=== PATIENT | male | born 1965 | race Caucasian/White ===

== ENCOUNTER 2019-04-12 08:57 | Observation (INO) | payer OTHER, SELFPAY ==
[2019-04-12] VITALS (11 sets, daily range): BP systolic 107–130; BP diastolic 50–76; PULSE 40–48; RESP 12–19; TEMP 36.4–36.9; O2SAT 94–98; BMI 39.4
--- NOTE | 2019-04-12 09:12 | DI.RAD.S_ITS ---
PROCEDURE: XR CHEST 1V INDICATIONS: chest pain TECHNIQUE: One view of the chest was acquired. COMPARISON: None. FINDINGS: Surgical changes and devices: None. Lungs and pleura: Lungs are clear. No pleural effusions or pneumothorax. Mediastinum: Mediastinal contours appear normal. Heart size is normal. Bones and chest wall: No suspicious bony lesions. Overlying soft tissues appear unremarkable. IMPRESSION: No acute cardiopulmonary findings. Dictated by: Sabrina Silva M.D. on 04/12/2019 at 9:06 Approved by: Sabrina Silva M.D. on 04/12/2019 at 9:06
[2019-04-12 09:18] LABS: Add Manual Diff / Slide Review NO; Basophils Absolute Auto 100 /uL (0-100); Eosinophils Absolute Auto 100 /uL (0-450); Eosinophils Percent Auto 1.8 % (2-4); Hematocrit 42.1 % (41-53); Hemoglobin 14.4 g/dL (13.5-17.5); Lymphocytes Absolute Auto 2200 /uL (1100-4500); Lymphocytes Percent Auto 28.5 % (25-40); Mean Corpuscular HGB Conc 34.3 % (30-36); Mean Corpuscular Volume 87.6 fL (80-100); Monocytes Absolute Auto 600 /uL (0-900); Monocytes Percent Auto 7.2 % (3-14); Neutrophils Absolute Auto 4800 /uL (1500-7000); Neutrophils Percent Auto 61.5 % (50-75); Platelet Count 256 X10^3/uL (150-400); Red Blood Cell Count 4.81 X10^6/uL (4.5-5.9); Red Cell Distribution Width 13.6 % (11.6-14.8); White Blood Cell Count 7.9 X10^3/uL (4.5-11.0)
[2019-04-12 09:21] LABS: Prothrombin Time 11.1 SECONDS (10.1-12.7)
[2019-04-12 09:23] LABS: PTT Partial Thromboplastin Tim 30 SECONDS (26.4-36.2)
[2019-04-12 09:25] LABS: Alanine Aminotransferase 30 IU/L (21-72); Albumin 4.5 g/dL (3.5-5.0); Albumin Globulin Ratio 1.5 (1.0-2.8); Alkaline Phosphatase 51 U/L (38-126); Aspartate Aminotransferase 24 IU/L (17-59); BUN Creatinine Ratio 21.7 (6-22); Bilirubin Total 0.6 mg/dL (0.2-1.3); Blood Urea Nitrogen 13 mg/dL (9-20); Calcium 9.2 mg/dL (8.4-10.2); Carbon Dioxide 25 mmol/L (22-32); Chloride 104 mmol/L (98-107); Creatine Kinase 56 U/L (55-170); Estimated Glomerular Filt Rate > 60.0 mL/min (>60); Glucose 105 mg/dL (70-100); HEMOLYSIS 20 (0-50); Lipase 53 U/L (23-300); Potassium 4.5 mmol/L (3.4-5.1); Sodium 141 mmol/L (137-145); Total Protein 7.5 g/dL (6.3-8.2)
[2019-04-12 09:37] LABS: Troponin I < 0.012 ng/mL (0.01-0.034)
--- NOTE | 2019-04-12 09:42 | ED.WEAKNESS ---
HPI - Weakness General Chief complaint: Weakness Stated complaint: Low heart beat Time Seen by Provider: 04/12/19 08:59 Source: patient and family Mode of arrival: ambulatory Limitations: no limitations History of Present Illness HPI Narrative: Patient comes to the emergency department complaining of episodes of generalized weakness and lightheadedness, with low heartbeat over the past year to. Patient states that he also has a history of left-sided chest pain that radiates to his arm and shoulder for about the same period, but unrelated to these episodes. Patient states he has recently moved here from [facility], and while living there, was fully worked up for all of the above, including seeing a nut culler at [facility]. Patient states that he has had constant, but fluctuating tinnitus for the last couple of years, and is on propranolol for this. He has been on the propranolol for about 1 year, and has had no recent dose changes. Patient states that this morning, he and his got up and went down to the water and had a relaxing morning. On their way back, patient began to feel lightheaded, and when they checked his heart rate, they found to be 40-41. Patient states the last time he took his propranolol was this morning. He he patient and his state that the patient's blood pressure was ?low? but clarifies that he had a systolic of 107, then 113. The patient is on losartan for his blood pressure, and has not had any recent dose changes. Patient denies any chest pain that occurred with this episode. No shortness of breath. No nausea. He has not been ill with anything. Patient does admit that he does not drink much water. He gets about 3:00 a.m. every morning to go to work, so he goes to bed about 6:00 p.m.. Patient states he falls asleep right away, but never feels rested in the morning. He is not known to have sleep apnea. Patient has never been diagnosed with any cardiac issues. He is not a diabetic. He denies any new medications of any sort. He states he drinks 2 cups of coffee every day, and drinks occasional alcohol. No other complaints at this time. Patient states he feels little better lying in the bed. Related Data Home Medications Medication Instructions Recorded Confirmed losartan 50 mg PO DAILY 04/12/19 04/12/19 propranolol 80 mg PO BID 04/12/19 04/12/19 sertraline 100 mg PO DAILY 04/12/19 04/12/19 Allergies Allergy/AdvReac Type Severity Reaction Status Date / Time No Known Drug Allergies Allergy Verified 04/12/19 09:05 Review of Systems Constitutional Denies chills, Denies fever(s), Denies lethargy and Reports weakness Eyes Denies change in vision, Denies eye discharge, Denies irritation and Denies loss of vision ENT Ears, Nose, Mouth, and Throat: Denies change in voice, Denies neck pain and Denies sore throat Cardiovascular Reports chest pain (Chronic), Denies irregular heart rhythm, Reports lightheadedness, Denies palpitations, Denies dyspnea, Denies dyspnea on exertion, Denies orthopnea and Reports slow heart rate Respiratory Denies cough, Denies dyspnea, Denies dyspnea on exertion and Denies wheezing Gastrointestinal Gastrointestinal: Denies abdominal pain, Denies change in bowel habits, Denies diarrhea, Denies nausea and Denies vomiting Genitourinary Denies hematuria, Denies flank pain, Denies urinary incontinence and Denies urinary urgency Musculoskeletal Denies neck pain Integumentary/Breasts Denies pruritus, Denies erythema, Denies rash and Denies wounds Neurologic Denies confusion, Denies loss of vision and Reports weakness Psychiatric Denies anxiety, Denies confusion, Denies depression, Denies homicidal ideation and Denies suicidal ideation Endocrine Denies palpitations Hematologic/Lymphatic Denies easy bruising Allergic/Immunologic Denies wheezing [facility] Medical History Tinnitus (Acute) HTN (hypertension) (Acute) Surgical History No pertinent past surgical history (Acute) Social History Smoking Status: Never smoker Social History Smoking Status: Never smoker Exam Initial Vital Signs Initial Vital Signs: Vital Signs Temperature 97.6 F 04/12/19 09:00 Pulse Rate 43 L 04/12/19 09:00 Respiratory Rate 19 04/12/19 09:00 Blood Pressure 130/66 04/12/19 09:00 Pulse Oximetry 98 04/12/19 09:00 Const General: cooperative and well developed Nutritional Appearance: well nourished Orientation: alert, awake, oriented x3 and not confused [facility] Head: normocephalic and atraumatic Ears: external ears normal Nose: external nose normal and No nasal discharge Face and sinus: face symmetric and No dry mucous membranes Mouth: oral mucosae normal and moist mucous membranes Teeth and gingiva: dentition normal Eyes General: appearance normal, both eyes and all related structures Eyelids: eyelids normal Conjunctivae: conjunctivae normal Sclera: sclerae normal Pupils: PERRL EOM: EOM intact bilaterally Neck Neck: normal visual inspection, trachea midline, No lymphadenopathy, No midline deformity and No JVD Lymphatic: No lymphedema Chest Chest: normal inspection of the chest Resp Effort & Inspection: normal respiratory effort, able to speak in complete sentences, no respiratory distress and no use of accessory muscles Auscultation: clear to auscultation bilaterally, no rales, no rhonchi and no wheezes Cardio Rate: regular rate Rhythm: regular rhythm Heart Sounds: no click, no gallops, no murmurs and no rubs Pulses: normal peripheral pulses GI Inspection: non-distended Palpation: soft, no hepatosplenomegaly, No guarding, No pulsatile mass and No tender Auscultation: normal bowel sounds Back/Spine/Pelvis Back: No CVA tenderness Cervical Spine: cervical ROM normal and No pain with cervical ROM Thoracic/Lumbar Spine: thoracic and lumbar spine normal to inspection Skin General: no rashes or lesions noted, No jaundice and No petechiae Neuro General: alert, oriented x3, gait normal and no focal motor deficits Speech: speech normal Extrem General: full ROM, no clubbing, cyanosis or edema, no pedal edema and no calf tenderness Psych Appearance: well kempt Mental Status: mental status grossly normal Attitude: cooperative Thought Content: normal and suicidality Judgment: judgment good Course Course Narrative: Patient was given IV fluids and worked up with EKG, labs, and chest x-ray. His heart rate was in the mid to upper 40s on the monitor initially, but then began to drop down into the upper 30s, as low as 37. The patient's workup was unremarkable. I discussed the case with Dr. Hurd, who was on-call for Cardiology, and he felt the patient should be admitted to the hospital for observation, with instructions to hold the propanolol, which Dr. Hurd felt was most likely the reason for the patient's recurrent bradycardic episodes. I had reviewed the records from [facility], and found the patient had had a CTA of the coronary arteries, showing no stenosis in any of the arteries, and I did discuss this with Dr. Hurd, as well. He stated that he did not feel that the patient needed to have a stress test, in light of this recent study. I spoke with Dr. May, who is the hospitalist on-call, regarding the situation, and she agreed to admit the patient to her service for observation. Orders Ordered: ED Orders 04/12/19 09:08 Complete Blood Count AUTO DIFF Stat Comprehensive Metabolic Panel Stat Lipase Stat Partial Thromboplastin Time Stat Prothrombin Time INR Stat Troponin & CK Cardiac Panel Stat 04/12/19 09:12 XR chest 1V Stat 04/12/19 12:10 Troponin & CK Cardiac Panel Stat Discontinued Medications Atropine Sulfate (Atropine) 0.5 mg IV NOW ONE Stop: 04/12/19 09:43 Last Admin: 04/12/19 09:55 Dose: 0.5 mg Sodium Chloride (Normal Saline 0.9%) 1,000 mls @ 1,000 mls/hr IV BOLUS ONE Stop: 04/12/19 10:41 Last Infusion: 04/12/19 11:05 Dose: 0 mls/hr Admin: 04/12/19 09:55 Dose: 1,000 mls/hr Vital Signs - 8 hr 04/12/19 09:00 04/12/19 10:02 04/12/19 11:00 Temperature 97.6 F Pulse Rate 43 L 46 L 41 L Respiratory Rate 19 19 16 Blood Pressure 130/66 Blood Pressure [Left Arm] 115/58 L 107/50 L Pulse Oximetry 98 96 96 04/12/19 12:30 04/12/19 13:00 04/12/19 13:31 Temperature Pulse Rate 41 L 40 L 44 L Respiratory Rate 17 17 18 Blood Pressure Blood Pressure [Left Arm] 109/53 L 113/60 113/60 Pulse Oximetry 97 95 97 MDM - Weakness Medical Records Attestation: I reviewed the patient's medical records. Lab Data Attestation: I reviewed the patient's lab results. Result diagrams: 04/12/19 09:08 04/12/19 09:08 Lab Results 04/12/19 04/12/19 04/12/19 Range/Units 09:08 09:08 09:08 WBC 7.9 (4.5-11.0) X10^3/uL RBC 4.81 (4.5-5.9) X10^6/uL Hgb 14.4 (13.5-17.5) g/dL Hct 42.1 (41-53) % MCV 87.6 (80-100) fL MCH 30.0 (26-34) PG MCHC 34.3 (30-36) % RDW 13.6 (11.6-14.8) % Plt Count 256 (150-400) X10^3/uL Neut % (Auto) 61.5 (50-75) % Lymph % (Auto) 28.5 (25-40) % [place] % (Auto) 7.2 (3-14) % Eos % (Auto) 1.8 L (2-4) % Baso % (Auto) 1.0 (0-2) % Neut # (Auto) 4800 (7708-2733) /uL Lymph # (Auto) 2200 (4829-1047) /uL [place] # (Auto) 600 (0-900) /uL Eos # (Auto) 100 (0-450) /uL Baso # (Auto) 100 (0-100) /uL PT 11.1 (10.1-12.7) SECONDS INR 1.0 (0.9-1.3) APTT 30 (26.4-36.2) SECONDS Sodium 141 (137-145) mmol/L Potassium 4.5 (3.4-5.1) mmol/L Chloride 104 (98-107) mmol/L Carbon Dioxide 25 (22-32) mmol/L BUN 13 (9-20) mg/dL Creatinine 0.60 L (0.66-1.25) mg/dL Estimated GFR > 60.0 (>60) mL/min BUN/Creatinine Ratio 21.7 (6-22) Glucose 105 H (70-100) mg/dL Calcium 9.2 (8.4-10.2) mg/dL Total Bilirubin 0.6 (0.2-1.3) mg/dL AST 24 (17-59) IU/L ALT 30 (21-72) IU/L Alkaline Phosphatase 51 (38-126) U/L Total Creatine Kinase 56 (55-170) U/L CK-MB (CK-2) TNP CK-MB (CK-2) Rel Index TNP Troponin I < 0.012 (0.01-0.034) ng/mL Total Protein 7.5 (6.3-8.2) g/dL Albumin 4.5 (3.5-5.0) g/dL Globulin 3.0 (1.7-4.1) g/dL Albumin/Globulin Ratio 1.5 (1.0-2.8) Lipase 53 (23-300) U/L 04/12/19 Range/Units 12:10 WBC (4.5-11.0) X10^3/uL RBC (4.5-5.9) X10^6/uL Hgb (13.5-17.5) g/dL Hct (41-53) % MCV (80-100) fL MCH (26-34) PG MCHC (30-36) % RDW (11.6-14.8) % Plt Count (150-400) X10^3/uL Neut % (Auto) (50-75) % Lymph % (Auto) (25-40) % Chilton % (Auto) (3-14) % Eos % (Auto) (2-4) % Baso % (Auto) (0-2) % Neut # (Auto) (3946-5843) /uL Lymph # (Auto) (1913-6883) /uL Chilton # (Auto) (0-900) /uL Eos # (Auto) (0-450) /uL Baso # (Auto) (0-100) /uL PT (10.1-12.7) SECONDS INR (0.9-1.3) APTT (26.4-36.2) SECONDS Sodium (137-145) mmol/L Potassium (3.4-5.1) mmol/L Chloride (98-107) mmol/L Carbon Dioxide (22-32) mmol/L BUN (9-20) mg/dL Creatinine (0.66-1.25) mg/dL Estimated GFR (>60) mL/min BUN/Creatinine Ratio (6-22) Glucose (70-100) mg/dL Calcium (8.4-10.2) mg/dL Total Bilirubin (0.2-1.3) mg/dL AST (17-59) IU/L ALT (21-72) IU/L Alkaline Phosphatase (38-126) U/L Total Creatine Kinase 48 L (55-170) U/L CK-MB (CK-2) TNP CK-MB (CK-2) Rel Index TNP Troponin I < 0.012 (0.01-0.034) ng/mL Total Protein (6.3-8.2) g/dL Albumin (3.5-5.0) g/dL Globulin (1.7-4.1) g/dL Albumin/Globulin Ratio (1.0-2.8) Lipase (23-300) U/L Imaging Data Chest x-ray: Attestation: I personally reviewed and interpreted this imaging study as follows: My impression: Negative Radiologist's impression: PROCEDURE: XR CHEST 1V INDICATIONS: chest pain TECHNIQUE: One view of the chest was acquired. COMPARISON: None. FINDINGS: Surgical changes and devices: None. Lungs and pleura: Lungs are clear. No pleural effusions or pneumothorax. Mediastinum: Mediastinal contours appear normal. Heart size is normal. Bones and chest wall: No suspicious bony lesions. Overlying soft tissues appear unremarkable. IMPRESSION: No acute cardiopulmonary findings. Dictated by: Sabrina Silva M.D. on 04/12/2019 at 9:06 Approved by: Sabrina Silva M.D. on 04/12/2019 at 9:06 ECG Data Attestation: I personally reviewed and interpreted this ECG as follows: (See below) Interpretation: Twelve lead EKG performed April 04, 2019 at 9:01 a.m., follows: Regular ventricular rhythm with a rate of 42 beats per minute NC interval was 151 millisecond QRS duration 97 millisecond QTC interval [address] T wave changes No ectopy Interpretation: Sinus bradycardia; no signs of acute ischemia; borderline EKG as interpreted by ED MD. Discharge Plan Departure Patient Disposition: Admitted as Observation Clinical Impression: Symptomatic sinus bradycardia Discharge Date/Time: 04/12/19 13:45 Interventions: ED Discharge Assessment Last Done: 04/12/19 13:45 Admit Date/Time: 04/12/19 12:37 Admit Provider: Monie May
--- NOTE | 2019-04-12 09:50 | ED_ITS ---
HPI - Weakness General Chief complaint: Weakness Stated complaint: Low heart beat Time Seen by Provider: 04/12/19 08:59 Source: patient and family Mode of arrival: ambulatory Limitations: no limitations History of Present Illness HPI Narrative: Patient comes to the emergency department complaining of episodes of generalized weakness and lightheadedness, with low heartbeat over the past year to. Patient states that he also has a history of left-sided chest pain that radiates to his arm and shoulder for about the same period, but unrelated to these episodes. Patient states he has recently moved here from [facility], and while living there, was fully worked up for all of the above, including seeing a color print inspector at [facility]. Patient states that he has had constant, but fluctuating tinnitus for the last couple of years, and is on propranolol for this. He has been on the propranolol for about 1 year, and has had no recent dose changes. Patient states that this morning, he and his got up and went down to the water and had a relaxing morning. On their way back, patient began to feel lightheaded, and when they checked his heart rate, they found to be 40-41. Patient states the last time he took his propranolol was this morning. He he patient and his state that the patient's blood pressure was ?low? but clarifies that he had a systolic of 107, then 113. The patient is on losartan for his blood pressure, and has not had any recent dose changes. Patient denies any chest pain that occurred with this episode. No shortness of breath. No nausea. He has not been ill with anything. Patient does admit that he does not drink much water. He gets about 3:00 a.m. every morning to go to work, so he goes to bed about 6:00 p.m.. Patient states he falls asleep right away, but never feels rested in the morning. He is not known to have sleep apnea. Patient has never been diagnosed with any cardiac issues. He is not a diabetic. He denies any new medications of any sort. He states he drinks 2 cups of coffee every day, and drinks occasional alcohol. No other complaints at this time. Patient states he feels little better lying in the bed. Related Data Home Medications Medication Instructions Recorded Confirmed losartan 50 mg PO DAILY 04/12/19 04/12/19 propranolol 80 mg PO BID 04/12/19 04/12/19 sertraline 100 mg PO DAILY 04/12/19 04/12/19 Allergies Allergy/AdvReac Type Severity Reaction Status Date / Time No Known Drug Allergies Allergy Verified 04/12/19 09:05 Review of Systems Constitutional Denies chills, Denies fever(s), Denies lethargy and Reports weakness Eyes Denies change in vision, Denies eye discharge, Denies irritation and Denies loss of vision ENT Ears, Nose, Mouth, and Throat: Denies change in voice, Denies neck pain and Denies sore throat Cardiovascular Reports chest pain (Chronic), Denies irregular heart rhythm, Reports lightheadedness, Denies palpitations, Denies dyspnea, Denies dyspnea on exertion, Denies orthopnea and Reports slow heart rate Respiratory Denies cough, Denies dyspnea, Denies dyspnea on exertion and Denies wheezing Gastrointestinal Gastrointestinal: Denies abdominal pain, Denies change in bowel habits, Denies diarrhea, Denies nausea and Denies vomiting Genitourinary Denies hematuria, Denies flank pain, Denies urinary incontinence and Denies urinary urgency Musculoskeletal Denies neck pain Integumentary/Breasts Denies pruritus, Denies erythema, Denies rash and Denies wounds Neurologic Denies confusion, Denies loss of vision and Reports weakness Psychiatric Denies anxiety, Denies confusion, Denies depression, Denies homicidal ideation and Denies suicidal ideation Endocrine Denies palpitations Hematologic/Lymphatic Denies easy bruising Allergic/Immunologic Denies wheezing [facility] Medical History Tinnitus (Acute) HTN (hypertension) (Acute) Surgical History No pertinent past surgical history (Acute) Social History Smoking Status: Never smoker Social History Smoking Status: Never smoker Exam Initial Vital Signs Initial Vital Signs: Vital Signs Temperature 97.6 F 04/12/19 09:00 Pulse Rate 43 L 04/12/19 09:00 Respiratory Rate 19 04/12/19 09:00 Blood Pressure 130/66 04/12/19 09:00 Pulse Oximetry 98 04/12/19 09:00 Const General: cooperative and well developed Nutritional Appearance: well nourished Orientation: alert, awake, oriented x3 and not confused [facility] Head: normocephalic and atraumatic Ears: external ears normal Nose: external nose normal and No nasal discharge Face and sinus: face symmetric and No dry mucous membranes Mouth: oral mucosae normal and moist mucous membranes Teeth and gingiva: dentition normal Eyes General: appearance normal, both eyes and all related structures Eyelids: eyelids normal Conjunctivae: conjunctivae normal Sclera: sclerae normal Pupils: PERRL EOM: EOM intact bilaterally Neck Neck: normal visual inspection, trachea midline, No lymphadenopathy, No midline deformity and No JVD Lymphatic: No lymphedema Chest Chest: normal inspection of the chest Resp Effort & Inspection: normal respiratory effort, able to speak in complete sentences, no respiratory distress and no use of accessory muscles Auscultation: clear to auscultation bilaterally, no rales, no rhonchi and no wheezes Cardio Rate: regular rate Rhythm: regular rhythm Heart Sounds: no click, no gallops, no murmurs and no rubs Pulses: normal peripheral pulses GI Inspection: non-distended Palpation: soft, no hepatosplenomegaly, No guarding, No pulsatile mass and No tender Auscultation: normal bowel sounds Back/Spine/Pelvis Back: No CVA tenderness Cervical Spine: cervical ROM normal and No pain with cervical ROM Thoracic/Lumbar Spine: thoracic and lumbar spine normal to inspection Skin General: no rashes or lesions noted, No jaundice and No petechiae Neuro General: alert, oriented x3, gait normal and no focal motor deficits Speech: speech normal Extrem General: full ROM, no clubbing, cyanosis or edema, no pedal edema and no calf tenderness Psych Appearance: well kempt Mental Status: mental status grossly normal Attitude: cooperative Thought Content: normal and suicidality Judgment: judgment good Course Course Narrative: Patient was given IV fluids and worked up with EKG, labs, and chest x-ray. His heart rate was in the mid to upper 40s on the monitor initially, but then began to drop down into the upper 30s, as low as 37. The patient's workup was unremarkable. I discussed the case with Dr. Hurd, who was on-call for Cardiology, and he felt the patient should be admitted to the hospital for observation, with instructions to hold the propanolol, which Dr. Hurd felt was most likely the reason for the patient's recurrent bradycardic episodes. I had reviewed the records from [facility], and found the patient had had a CTA of the coronary arteries, showing no stenosis in any of the arteries, and I did discuss this with Dr. Hurd, as well. He stated that he did not feel that the patient needed to have a stress test, in light of this recent study. I spoke with Dr. May, who is the hospitalist on-call, regarding the situation, and she agreed to admit the patient to her service for observation. Orders Ordered: ED Orders 04/12/19 09:08 Complete Blood Count AUTO DIFF Stat Comprehensive Metabolic Panel Stat Lipase Stat Partial Thromboplastin Time Stat Prothrombin Time INR Stat Troponin & CK Cardiac Panel Stat 04/12/19 09:12 XR chest 1V Stat 04/12/19 12:10 Troponin & CK Cardiac Panel Stat Discontinued Medications Atropine Sulfate (Atropine) 0.5 mg IV NOW ONE Stop: 04/12/19 09:43 Last Admin: 04/12/19 09:55 Dose: 0.5 mg Sodium Chloride (Normal Saline 0.9%) 1,000 mls @ 1,000 mls/hr IV BOLUS ONE Stop: 04/12/19 10:41 Last Infusion: 04/12/19 11:05 Dose: 0 mls/hr Admin: 04/12/19 09:55 Dose: 1,000 mls/hr Vital Signs - 8 hr 04/12/19 09:00 04/12/19 10:02 04/12/19 11:00 Temperature 97.6 F Pulse Rate 43 L 46 L 41 L Respiratory Rate 19 19 16 Blood Pressure 130/66 Blood Pressure [Left Arm] 115/58 L 107/50 L Pulse Oximetry 98 96 96 04/12/19 12:30 04/12/19 13:00 04/12/19 13:31 Temperature Pulse Rate 41 L 40 L 44 L Respiratory Rate 17 17 18 Blood Pressure Blood Pressure [Left Arm] 109/53 L 113/60 113/60 Pulse Oximetry 97 95 97 MDM - Weakness Medical Records Attestation: I reviewed the patient's medical records. Lab Data Attestation: I reviewed the patient's lab results. Result diagrams: 04/12/19 09:08 04/12/19 09:08 Lab Results 04/12/19 04/12/19 04/12/19 Range/Units 09:08 09:08 09:08 WBC 7.9 (4.5-11.0) X10^3/uL RBC 4.81 (4.5-5.9) X10^6/uL Hgb 14.4 (13.5-17.5) g/dL Hct 42.1 (41-53) % MCV 87.6 (80-100) fL MCH 30.0 (26-34) PG MCHC 34.3 (30-36) % RDW 13.6 (11.6-14.8) % Plt Count 256 (150-400) X10^3/uL Neut % (Auto) 61.5 (50-75) % Lymph % (Auto) 28.5 (25-40) % Dickenson % (Auto) 7.2 (3-14) % Eos % (Auto) 1.8 L (2-4) % Baso % (Auto) 1.0 (0-2) % Neut # (Auto) 4800 (6967-0148) /uL Lymph # (Auto) 2200 (5047-6038) /uL Dickenson # (Auto) 600 (0-900) /uL Eos # (Auto) 100 (0-450) /uL Baso # (Auto) 100 (0-100) /uL PT 11.1 (10.1-12.7) SECONDS INR 1.0 (0.9-1.3) APTT 30 (26.4-36.2) SECONDS Sodium 141 (137-145) mmol/L Potassium 4.5 (3.4-5.1) mmol/L Chloride 104 (98-107) mmol/L Carbon Dioxide 25 (22-32) mmol/L BUN 13 (9-20) mg/dL Creatinine 0.60 L (0.66-1.25) mg/dL Estimated GFR > 60.0 (>60) mL/min BUN/Creatinine Ratio 21.7 (6-22) Glucose 105 H (70-100) mg/dL Calcium 9.2 (8.4-10.2) mg/dL Total Bilirubin 0.6 (0.2-1.3) mg/dL AST 24 (17-59) IU/L ALT 30 (21-72) IU/L Alkaline Phosphatase 51 (38-126) U/L Total Creatine Kinase 56 (55-170) U/L CK-MB (CK-2) TNP CK-MB (CK-2) Rel Index TNP Troponin I < 0.012 (0.01-0.034) ng/mL Total Protein 7.5 (6.3-8.2) g/dL Albumin 4.5 (3.5-5.0) g/dL Globulin 3.0 (1.7-4.1) g/dL Albumin/Globulin Ratio 1.5 (1.0-2.8) Lipase 53 (23-300) U/L 04/12/19 Range/Units 12:10 WBC (4.5-11.0) X10^3/uL RBC (4.5-5.9) X10^6/uL Hgb (13.5-17.5) g/dL Hct (41-53) % MCV (80-100) fL MCH (26-34) PG MCHC (30-36) % RDW (11.6-14.8) % Plt Count (150-400) X10^3/uL Neut % (Auto) (50-75) % Lymph % (Auto) (25-40) % Dickenson % (Auto) (3-14) % Eos % (Auto) (2-4) % Baso % (Auto) (0-2) % Neut # (Auto) (9973-5922) /uL Lymph # (Auto) (4689-0974) /uL Dickenson # (Auto) (0-900) /uL Eos # (Auto) (0-450) /uL Baso # (Auto) (0-100) /uL PT (10.1-12.7) SECONDS INR (0.9-1.3) APTT (26.4-36.2) SECONDS Sodium (137-145) mmol/L Potassium (3.4-5.1) mmol/L Chloride (98-107) mmol/L Carbon Dioxide (22-32) mmol/L BUN (9-20) mg/dL Creatinine (0.66-1.25) mg/dL Estimated GFR (>60) mL/min BUN/Creatinine Ratio (6-22) Glucose (70-100) mg/dL Calcium (8.4-10.2) mg/dL Total Bilirubin (0.2-1.3) mg/dL AST (17-59) IU/L ALT (21-72) IU/L Alkaline Phosphatase (38-126) U/L Total Creatine Kinase 48 L (55-170) U/L CK-MB (CK-2) TNP CK-MB (CK-2) Rel Index TNP Troponin I < 0.012 (0.01-0.034) ng/mL Total Protein (6.3-8.2) g/dL Albumin (3.5-5.0) g/dL Globulin (1.7-4.1) g/dL Albumin/Globulin Ratio (1.0-2.8) Lipase (23-300) U/L Imaging Data Chest x-ray: Attestation: I personally reviewed and interpreted this imaging study as follows: My impression: Negative Radiologist's impression: PROCEDURE: XR CHEST 1V INDICATIONS: chest pain TECHNIQUE: One view of the chest was acquired. COMPARISON: None. FINDINGS: Surgical changes and devices: None. Lungs and pleura: Lungs are clear. No pleural effusions or pneumothorax. Mediastinum: Mediastinal contours appear normal. Heart size is normal. Bones and chest wall: No suspicious bony lesions. Overlying soft tissues appear unremarkable. IMPRESSION: No acute cardiopulmonary findings. Dictated by: Sabrina Silva M.D. on 04/12/2019 at 9:06 Approved by: Sabrina Silva M.D. on 04/12/2019 at 9:06 ECG Data Attestation: I personally reviewed and interpreted this ECG as follows: (See below) Interpretation: Twelve lead EKG performed April 04, 2019 at 9:01 a.m., follows: Regular ventricular rhythm with a rate of 42 beats per minute MD interval was 151 millisecond QRS duration 97 millisecond QTC interval [address] T wave changes No ectopy Interpretation: Sinus bradycardia; no signs of acute ischemia; borderline EKG as interpreted by ED MD. Discharge Plan Departure Patient Disposition: Admitted as Observation Clinical Impression: Symptomatic sinus bradycardia Discharge Date/Time: 04/12/19 13:45 Interventions: ED Discharge Assessment Last Done: 04/12/19 13:45 Admit Date/Time: 04/12/19 12:37 Admit Provider: Monie May
[2019-04-12] MEDS: SODIUM CHLORIDE 0.9% 1,000 ML 1000 ML IV (09:55)
[2019-04-12] MEDS: ATROPINE 1 MG/10 ML SYRINGE 0.5 MG IV (09:55)
[2019-04-12 12:25] LABS: Creatine Kinase 48 U/L (55-170)
[2019-04-12 12:38] LABS: Troponin I < 0.012 ng/mL (0.01-0.034)
[2019-04-12] MEDS: ACETAMINOPHEN 325 MG TABLET 650 MG PO ×2 (14:46→21:05)
[2019-04-12] MEDS: SODIUM CHLORIDE 0.9% 1,000 ML 100 ML IV (14:47)
--- NOTE | 2019-04-12 15:31 | PC.NURSE ---
Day Shift- Report rec'd from [facility] in ED at 1334. Pt arrived via wheelchair at 1346 with ED RN and female visitor at side. Pt settled into room 205 by MACHINE HELPER. Bowen MURRIETA performed admission assessment. Dr. May in to see pt at 1505.
--- NOTE | 2019-04-12 16:21 | P.HP_ITS ---
History of Present Illness Date Patient Seen: 04/12/19 Chief complaint: Low heart beat Narrative: Jamison Spears is a 53-year-old male with a past medical history significant for hypertension, tinnitus, depression, and possible sleep apnea who presented to the ED with extreme fatigue related to symptomatic bradycardia. The patient reports that he awoke this morning and felt fine and in his usual state of hea lth. He went for drive with his and walked down the beach without issue. He reports that when they returned home he all of a sudden felt drained and as though ?someone pulled the plug.? He then ate breakfast with mild nausea afterward and without relief. The extreme fatigue only continued to worsen so he went to lay down and reports he had difficulty keeping his eyes open and could barely arouse or get out of bed when his insisted that he go to the ED. He reports that he has felt this coming on slowly over the past year and it seems to be getting worse. He specifically denies lightheadedness or dizziness. He has not had tunnel vision associated with recent extreme fatigue episodes. He has had some temporary peripheral vision loss (motioned that it is like having blindness on) for approximately 30 minutes at a time, 2-3 times over the past year, but it does not seem to be associated with episodes of extreme fatigue. He also notes that he will be sitting at rest and all of the sudden feel short of breath or as though he can't get a deep breath in for no reason. He has had associated body and joint aches during these episodes. The patient has been on propanolol 80 mg twice daily which he reports he takes for tinnitus and for the duration of his extreme fatigue symptoms, approximately 1 year. The patient reports chronic headaches which sound like cluster migraines that are left sided and behind the eye that occur 2-3 times per week and are relieved with Tylenol. His other chronic complaints include: Progressive worsening tinnitus, reproducible left-sided chest/sternal pain consistent with costochondritis, epigastric burning pain with alcohol, soda, orange juice, carbonation or spicy food and diarrhea every other day. He currently denies lightheadedness, dizziness, epistaxis, flushing sensation, diaphoresis, headache, chest pain or pressure, shortness of breath, abdominal pain, nausea, vomiting, fever, chills, dysuria, diarrhea or constipation. He reports he feels significantly improved compared to this morning. He also has a previous history of what sounds to be a hypertensive emergency with TIA in which he had chest pain, flushing and expressive aphasia associated with significant hypertension. He had an extensive workup including: Nuclear medicine stress test, EGD, colonoscopy, CTA of coronary arteries and chest, CT and MRI brain, and cardiology evaluation at [facility] in [place], in which no etiology was discovered. In the ED, EKG demonstrated sinus bradycardia, troponin was negative x2, chest x-ray was within normal limits and without cardiomegaly or any acute cardiopulmonary process, vital signs were stable, heart rate 40-50's. He received atropine without any change to heart rate. ED provider contacted Cardiology who recommend observation and telemetry over night. The patient and his spouse recently moved here from [place], [place] 3 months ago and he has no PCP. Patient History Medical History (Updated 04/12/19 @ 16:35 by Monie May DO) Tinnitus (Acute) HTN (hypertension) (Acute) Depression (Acute) Strangulated umbilical hernia (Acute) Surgical History (Updated 04/12/19 @ 16:35 by Monie May DO) No pertinent past surgical history (Acute) H/O umbilical hernia repair (Acute) Family History (Updated 04/12/19 @ 17:27 by Monie May DO) Mother Macular degeneration Father Heart valve disease Sister Malignant hypertension Social History household members: spouse Smoking Status: Never smoker Family & Social History Family History (Updated 04/12/19 @ 17:27 by Monie May DO) Mother Macular degeneration Father Heart valve disease Sister Malignant hypertension Social History: household members spouse Prior Living Arrangements House Safety & Behavioral: Feels Safe in Current Yes Environment Been Physically Hurt or No Threatened By a Person Suicidal Ideation Description None Suicide Plan Description No Plan Tobacco & Substance use: Smoking Status Never smoker alcohol intake frequency 1-2 vodka and orange juice most days of the week Substance Use Type does not use The patient has been for 30 years and has no children. 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 Meds Home Medications Medication Instructions Recorded Confirmed Type losartan 50 mg PO DAILY 04/12/19 04/12/19 History propranolol 80 mg PO BID 04/12/19 04/12/19 History sertraline 100 mg PO DAILY 04/12/19 04/12/19 History Allergies Allergy/AdvReac Type Severity Reaction Status Date / Time No Known Drug Allergies Allergy Verified 04/12/19 09:05 Review of Systems Review of Systems A 10 system comprehensive review of systems was conducted with the patient and found to be negative except as above in the History of Present Illness. Exam Vital Signs (past 8 hours): - 04/12/19 09:00 04/12/19 10:02 04/12/19 11:00 Temperature 97.6 F Pulse Rate 43 L 46 L 41 L Respiratory Rate 19 19 16 Blood Pressure 130/66 Blood Pressure [Left Arm] 115/58 L 107/50 L Pulse Oximetry 98 96 96 04/12/19 12:30 04/12/19 13:00 04/12/19 13:31 Temperature Pulse Rate 41 L 40 L 44 L Respiratory Rate 17 17 18 Blood Pressure Blood Pressure [Left Arm] 109/53 L 113/60 113/60 Pulse Oximetry 97 95 97 04/12/19 13:45 04/12/19 16:00 Temperature 98.1 F 98.4 F Pulse Rate 42 L 43 L Respiratory Rate 16 18 Blood Pressure 116/71 115/76 Blood Pressure [Left Arm] Pulse Oximetry 95 96 Oxygen Delivery Method Room Air Oxygen Flow Rate 0 Narrative Exam Narrative: General: Middle-aged obese gentleman sitting in bed and in no acute distress, well-developed, well-nourished, appropriately interactive. HEENT: Normocephalic, atraumatic. External ears without defect. Pupils equal, round, and reactive to light. Anicteric sclerae, moist conjunctivae, and no lid lag. Oropharynx free of erythema and cobble stoning with moist mucosa. Poor dentition. Neck: Supple with full range of motion. No jugular venous distension. No bruits. No lymphadenopathy or thyromegaly. Cardiovascular: Regular rhythm, bradycardic, without murmurs, rubs, or gallops appreciated. Reproducible chest pain on palpation. Pulmonary: Clear to auscultation bilaterally without crackles, wheezes, or rhonchi. Normal respiratory effort with no use of accessory muscles. Abdomen: Soft, bowel sounds present, nontender, nondistended. No hepatosplenomegaly or masses appreciated. Extremities: No clubbing, cyanosis, or edema. Skin: Normal temperature, turgor, and texture; no rash, ulcers, or subcutaneous nodules appreciated. Neurological: Cranial nerves grossly intact. Normal muscle strength, tone, and bulk. Reflexes, coordination, and sensory function within normal limits. No known gait impairment. Psychiatric: Normal mood and affect. Alert and oriented to person, place, and time. Objective Labs Result Diagrams: 04/12/19 09:08 04/12/19 09:08 Labs: Laboratory Results - last 24 hr 04/12/19 04/12/19 04/12/19 09:08 09:08 09:08 WBC 7.9 RBC 4.81 Hgb 14.4 Hct 42.1 MCV 87.6 MCH 30.0 MCHC 34.3 RDW 13.6 Plt Count 256 Neut % (Auto) 61.5 Lymph % (Auto) 28.5 [place] % (Auto) 7.2 Eos % (Auto) 1.8 L Baso % (Auto) 1.0 Neut # (Auto) 4800 Lymph # (Auto) 2200 [place] # (Auto) 600 Eos # (Auto) 100 Baso # (Auto) 100 PT 11.1 INR 1.0 APTT 30 Sodium 141 Potassium 4.5 Chloride 104 Carbon Dioxide 25 BUN 13 Creatinine 0.60 L Estimated GFR > 60.0 BUN/Creatinine Ratio 21.7 Glucose 105 H Calcium 9.2 Magnesium Total Bilirubin 0.6 AST 24 ALT 30 Alkaline Phosphatase 51 Total Creatine Kinase 56 CK-MB (CK-2) TNP CK-MB (CK-2) Rel Index TNP Troponin I < 0.012 Total Protein 7.5 Albumin 4.5 Globulin 3.0 Albumin/Globulin Ratio 1.5 Lipase 53 04/12/19 04/12/19 12:10 12:10 WBC RBC Hgb Hct MCV MCH MCHC RDW Plt Count Neut % (Auto) Lymph % (Auto) [place] % (Auto) Eos % (Auto) Baso % (Auto) Neut # (Auto) Lymph # (Auto) [place] # (Auto) Eos # (Auto) Baso # (Auto) PT INR APTT Sodium Potassium Chloride Carbon Dioxide BUN Creatinine Estimated GFR BUN/Creatinine Ratio Glucose Calcium Magnesium 2.0 Total Bilirubin AST ALT Alkaline Phosphatase Total Creatine Kinase 48 L CK-MB (CK-2) TNP CK-MB (CK-2) Rel Index TNP Troponin I < 0.012 Total Protein Albumin Globulin Albumin/Globulin Ratio Lipase Assessment & Plan Assessment & Plan narrative: Jamison Spears is a 53-year-old male with a past medical history significant for hypertension, tinnitus, depression, and possible sleep apnea who presented to the ED with extreme fatigue related to symptomatic bradycardia. 1. Acute on chronic symptomatic bradycardia, likely secondary to beta-chandu use, present on admission. Active. -Patient presented with progressive worsening of extreme fatigue with associated nausea and body/joint aches. -On arrival to ED, patient was found to be significantly bradycardic HR 40-50's. -Received 1 L NS x1 in ED with improvement of extreme fatigue. Continue IV maintenance fluids with normal saline 100 mL/hr to assure adequate hydration and increase cerebral perfusion. -EKG demonstrated sinus rhythm, bradycardia HR 42, borderline axis, normal intervals, poor R-wave progression, no heart block, pathological Q-waves or acute ischemic changes such as ST elevation or depression. -Initial troponin normal at < 0.012 x 2. Repeat one additional troponin. -Continue to monitor closely on telemetry. -Continue to neurological status closely. -Ordered TSH with reflex to free T4, pending. -Discontinued propanolol. Half-life of propanolol 2-6 hours for immediate release and 8 hours for extended release. If patient has chronically been on propanolol then it may have a longer half life due to saturation of liver binding sites. -Cardiology recommended admission overnight for observation on telemetry. Low threshold to contact Cardiology if patient becomes symptomatic or has significant bradycardia HR <40 for further guidance. -Placed pacemaker pads by room and will not hesitate to place on patient if HR < 40. -Ordered glycopyrrolate and glucagon (reversal agent for beta-chandu) if patient were to become symptomatic or HR < 40 sustained for 1 minute. Plan would be to administer glycopyrrolate 0.1 mg IV x1 and monitor for response. If patient unresponsive then administered glucagon 5 mg IV x1 and monitor for respo nse. If patient responsive and persistently bradycardic then he would need a glucagon infusion as bradycardia would be due to beta-chandu. If he does not respond to 1st bolus repeat glucagon 5 mg IV x1 after 10-15 minutes and if continues to be unresponsive start transcutaneous pacing and contact Cardiology for further guidance. 2. Probable obstructive sleep apnea, chronic, present on admission. Active. -Ordered CPAP to be placed on patient this evening as heart rate will likely trend down during sleep. -Recommended outpatient sleep study. 3. Hypertension, chronic, present on admission. Stable. -Continue losartan 50 mg daily. Discontinued propanolol which was used off- label for tinnitus. -Continue to monitor blood pressure closely. 4. Depression, chronic, present on admission. Stable. -Continue sertraline 100 mg daily. 5. Morbid obesity, chronic, present on admission. Stable. -BMI 39.9. -Counseled patient extensively on lifestyle modification including: Diet and exercise. -Risk stratify with hemoglobin A1c and fasting lipid panel with morning labs. 6. Tinnitus, chronic, present on admission. Stable. -Discontinued propanolol which was used off-label for tinnitus. -Recommended audiology evaluation and treatment. Patient is admitted under observation status with expected length of stay less than 2 midnights due to severity of presenting symptoms, risk of adverse event, and complexity of treatment plan.
[2019-04-12 18:19] LABS: TSH w/ Reflex to FT4 3.42 uIU/mL (0.47-4.68)
[2019-04-12 18:45] LABS: Troponin I < 0.012 ng/mL (0.01-0.034)
[2019-04-13 00:08] VITALS: O2SAT 96
[2019-04-13 00:36] VITALS: BP 111/47; PULSE 46; RESP 14; TEMP 36.9; O2SAT 96
[2019-04-13 03:07] VITALS: BP 109/58; PULSE 45; RESP 14; TEMP 37.2; O2SAT 96
--- NOTE | 2019-04-13 03:07 | PC.NURSE ---
2300- Assumed care of pt; present at bedside. Admit for symptomatic bradycardia; tele in place reading anywhere from 40 BPM-62 BPM. Pt is completely asymptomatic when HR is at 40. NS running as ordered into IV; SBA to urinal; bilat SED's in place. Pt denies pain or needs at this time. He is wearing hosp CPAP machine per MD orders in regards to sleep apnea. 0300- Pt cont to have bouts of apnea/HR at 40 occasionally thru the night. HR never sustains below 40 BPM, lowest has been 39. VS remain stable when checked. Good output noted as well.
[2019-04-13 07:00] VITALS: BP 113/64; BP 128/58; BP 130/71; BP 131/62; PULSE 57; PULSE 58; PULSE 59; PULSE 62; RESP 18; O2SAT 96
--- NOTE | 2019-04-13 07:41 | DI.ECHO.S_ITS ---
[facility]---------+ [facility] +---------+ : : [address] : : : : [id number] : : : : Phone: [phone]+ Echocardiogram Report + + :Name: QUINTEN DARDEN Study Date: 04/13/2019 Height: 72 in : :[facility] Weight: 295 lb : : Gender: Male BSA: 2.5 m2 : :: 1965 Age: 53 yrs BP: 135/70 mmHg: :Reason For Study: Bradycardia : : Performed By: Ernestina Vo : :Referring: YU FINLEY : + + Interpretation Summary The left ventricle is both mildly dilated and mild concentric hypertrophy with ejection fraction 60-65%. No valvular abnormality. Mildly enlarged ascending aorta. Procedure: A two-dimensional transthoracic echocardiogram with color flow and Doppler was performed. The study quality was technically adequate. There is no prior echocardiogram noted for this patient. The heart rate ranged between 50-56 bpm during the study. Left Ventricle: The left ventricle is mildly dilated. There is mild concentric left ventricular hypertrophy. The ejection fraction is estimated to be 60-65%. There are no focal wall motion abnormalities. Right Ventricle: The right ventricle is normal in size and function. Atria: The left atrial size is normal. Right atrial size is normal. The interatrial septum is intact with no evidence for an atrial septal defect. Mitral Valve: The mitral valve is normal in structure and function. There is no mitral regurgitation noted. Aortic Valve: The aortic valve opens well. No aortic regurgitation is present. Tricuspid Valve: The tricuspid valve is normal in structure and function. There is a trace or physiologic amount of tricuspid regurgitation. The right ventricular systolic pressure is estimated to be at least 30 mmHg based on an estimated right atrial pressure of 3 mm Hg. Pulmonic Valve: The pulmonic valve is normal in structure and function. There is trace pulmonic regurgitation. Great Vessels: The aortic root is normal size. The ascending aorta is mildly enlarged. The aortic arch is at the upper limits of normal in size. The IVC is of normal diameter and collapses greater than 50% with a sniff. This suggests a low right atrial pressure of 3 mm Hg. Pericardium/ Pleura There is no pericardial effusion. There is no pleural effusion. MMode/2D Measurements & Calculations LVIDd: 5.8 cm Ao root diam: 3.7 cm LVIDs: 2.7 cm Aortic Jxn: 3.0 cm FS: 54.2 % asc Aorta Diam: 3.8 cm EPSS: 0.31 cm Ao Arch Diam (Prox Trans): 3.1 cm IVSd: 0.93 cm LVPWd: 1.0 cm LV martinez. diameter/BSA (cm/m^2): 2.3 LV sys. diameter/BSA (cm/m^2): 1.1 LA A2 area: 23.5 cm2 RA long axis: 4.8 cm LA A4 area: 27.6 cm2 RA area: 21.5 cm2 LA length (vol): 6.2 cm RA vol: 81.4 ml LA vol: 88.4 ml RA : 32.4 ml/m2 LA vol index: 35.2 ml/m2 IVC diam: 2.0 cm RVDd major: 6.7 cm RVD1 (basal): 3.1 cm RVD2 (mid): 2.6 cm Doppler Measurements & Calculations Ao V2 max: 154.2 cm/sec MV E max keyon: 117.9 cm/sec Ao V2 mean: 100.3 cm/sec MV A max keyon: 41.8 cm/sec Ao max P.5 mmHg MV E/A: 2.8 Ao mean P.8 mmHg Med Peak E' Keyon: 8.2 cm/sec Ao V2 VTI: 36.7 cm E/E' med: 14.5 Lat Peak E' Keyon: 9.2 cm/sec E/E' lat: 12.9 E/e' average: 13.7 MV dec time: 0.25 sec MV P1/2t: 74.9 msec TR max keyon: 257.3 cm/sec MV P1/2t max keyon: 118.1 cm/sec TR max P.5 mmHg MVA(P1/2t): 2.9 cm2 PA V2 max: 96.9 cm/sec PA V2 mean: 60.1 cm/sec PA mean P.7 mmHg PA Accel Time: 0.19 sec Electronically signed by: Joe Joiner on Reading Physician:04/13/2019 12:28 PM
--- NOTE | 2019-04-13 08:08 | PT.IIE ---
Surgical History (Last Updated 04/12/19 @ 16:35 by Monie May DO) No pertinent past surgical history (Acute) H/O umbilical hernia repair (Acute) Medical History (Last Updated 04/12/19 @ 16:35 by Monie May DO) Tinnitus (Acute) HTN (hypertension) (Acute) Depression (Acute) Strangulated umbilical hernia (Acute) Physical Therapy Inpatient Evaluation/Re-Eval M1 PT/OT-IP Prior Functional Status Start: 04/13/19 07:59 Freq: NEEDED Status: Active Protocol: Document 04/13/19 07:59 [facility] (Rec: 04/13/19 08:07 [facility] [id number]) Medical Review Prior Functional Status Medical History Reviewed Yes Diet/Fluid Consistency Regular Communication WNL Mobility and Gait Indep without AD, able to amb w/in community Activities of Daily Living and IADL's indep Social History Household Members spouse Living Arrangements House Number of Floors (Floors) One Floor Number of Stairs To Enter/Railing? small step of the threshold Home Environment Standard Height Toilet Walk in Shower M2 PT-IP Current Condition Start: 04/13/19 07:59 Freq: NEEDED Status: Active Protocol: Document 04/13/19 07:59 [facility] (Rec: 04/13/19 08:07 [facility] [id number]) Physical Therapy Current Condition Current Condition Evaluation Date 04/13/19 Treatment Diagnosis bradycardia, weakness M3 PT-IP Subjective Start: 04/13/19 07:59 Freq: NEEDED Status: Active Protocol: Document 04/13/19 07:59 [facility] (Rec: 04/13/19 08:07 [facility] [id number]) Subjective Physical Therapy Visit Type Type Initial Evaluation Visit Start Time 07:30 Visit Stop Time 07:55 Total Visit Minutes 25 Number of COMPUTER SCIENTIST Visits 0 M4 PT-IP Mobility and Gait Start: 04/13/19 07:59 Freq: NEEDED Status: Active Protocol: Document 04/13/19 07:59 [facility] (Rec: 04/13/19 08:07 [facility] [id number]) PT-Bed Mobility Assessment Supine to Sit Supine to Sit Independent Scooting Scooting to Edge of Bed Independent PT-Transfer Assessment Sit to and From Stand Sit to and from Stand Independent Equipment Transfer Assistive Device Gait Belt Comments Mobility Comments Pt stood from chair and bed indep without requiring UE. Gait Assessment Gait Gait Assistance Required: Independent Distance (Feet) 150 Assistive Devices Assistive Device Gait Belt Gait Deviations General Gait Pattern Within Normal Limits Comments Gait Comments Pt able to amb safely without any LOB or evidence for imbalance. PT-Balance Assessment Sitting Balance and Reactions Static Sitting Balance Ability Normal Dynamic Sitting Balance Ability Normal Standing Balance and Reactions Static Standing Balance Ability Normal Dynamic Standing Balance Ability Normal Balance Tests Jimenez Balance Test Score 56 Query Text:Score Functional Assessments Functional Tests Tinetti Balance and Gait Assessment 28 M5 PT-IP Objective Assessments Start: 04/13/19 07:59 Freq: NEEDED Status: Active Protocol: Document 04/13/19 07:59 [facility] (Rec: 04/13/19 08:07 [facility] [id number]) Orientation Orientation/Cognition Level of Alertness Alert Strength Upper Extremity Strength Assessment Within Functional Limits Lower Extremity Strength Assessment Within Functional Limits M6 PT-IP Treatment Start: 04/13/19 07:59 Freq: NEEDED Status: Active Protocol: Document 04/13/19 07:59 [facility] (Rec: 04/13/19 08:07 [facility] [id number]) Physical Therapy Treatment Education Education Provided Safety M7 PT-IP Assessment and Plan Start: 04/13/19 07:59 Freq: NEEDED Status: Active Protocol: Document 04/13/19 07:59 [facility] (Rec: 04/13/19 08:07 [facility] [id number]) PT Summary Assessment and Plan Potential Rehabilitation Potential Excellent Status of Condition at Evaluation Stable Summary Assessment Summary Pt did well with balance and gait testing today with BP WNL for sit to stand and no c/o lightheadness. Pt scored 100% on both tinnetti and JIMENEZ testing and demonstrated no evidence of imbalance or difficulty with mobility at this time so is d/c from PT. Frequency of Treatment Frequency Of Treatment Discharge
--- NOTE | 2019-04-13 08:46 | CM.DANOTE ---
Addendum entered by Angeline Aguilar R.N. 04/13/19 14:41: Patient is being discharged today. Will have follow up with community engagement specialist, will fax over last note per their request, DC summary, as well as admit note. Gave them resources for providers as well. Addendum entered by Angeline Aguilar R.N. 04/13/19 13:34: Faxed face sheet over to community engagement specialist, Dr. Escobar, per his request. Original Note: DCP: Case received, EMR reviewed and met with patient. , Roslyn, also present in room. Introduced self and role. Was able to obtain baseline history from patient and . DCP assessment completed with information currently available. Patient is a 53 year old male who admitted yesterday afternoon to the care of the hospitalist team. PCP: No primary care provider, moved recently from [place]. Payer: confirmed: [employer]. Patient came to the hospital via family vehicle secondary to dizziness and low heart rate. Patient holds diagnosis of bradycardia. He has been on a medication for his Tinnitis, and is questionable if this may be causing his symptoms. Patient does not yet have a primary care provider in this area, but had been under the care of a community engagement specialist in [place]. He also has history of HTN, as well as depression. Met with patient and his spouse, Roslyn. Pleasant, alert and oriented. 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 He and his have been for 30 years, no children. stated that they just had gotten this insurance. This project planner let them know that they can be referred to [facility] in community resources here at hospital to assist with primary care provider. P: DCP to continue to follow. Will give information regarding primary care providers. Should be able to go home when he is medically stable. Angeline Aguilar RN/Jointer Machine Operator
[2019-04-13 09:50] VITALS: BP 135/70; PULSE 59
[2019-04-13] MEDS: LOSARTAN 50 MG TABLET PO (09:50)
[2019-04-13] MEDS: SERTRALINE 50 MG TABLET 100 MG PO (09:50)
[2019-04-13 09:52] VITALS: BP 135/70; PULSE 58
--- NOTE | 2019-04-13 11:27 | PC.NURSE ---
Addendum entered by Jacque Herzog R.N. 04/13/19 14:46: Reviewed f/u appt and d/c planning. Addendum entered by Jacque Herzog R.N. 04/13/19 14:07: F/u appt scheduled with [facility] for next week. Original Note: AM shift Pt is A/o x4, Up with SBA , denies pain or dizziness. Tele in place, continues with SB. HR 50's. Pt reports inability to sleep last night d/t staff interventions with bradycardia. Updated on POC, Orthostatic vitals obtained. Echo done this AM, Dr May reviewing trends of HR since admission. SO Janae in room at bedside.
--- NOTE | 2019-04-13 14:06 | P.DS_ITS ---
History of Present Illness Date Patient Seen: 04/12/19 Chief complaint: Low heart beat Narrative: Written by myself Dr. May: Jamison Spears is a 53-year-old male with a past medical history significant for hypertension, tinnitus, depression, and possible sleep apnea who presented to the ED with extreme fatigue related to symptomatic bradycardia. The patient reports that he awoke this morning and felt fine and in his usual state of health. He went for drive with his and walked down the beach without issue. He reports that when they returned home he all of a sudden felt drained and as though ?someone pulled the plug.? He then ate breakfast with mild nausea afterward and without relief. The extreme fatigue only continued to worsen so he went to lay down and reports he had difficulty keeping his eyes open and could barely arouse or get out of bed when his insisted that he go to the ED. He reports that he has felt this coming on slowly over the past year and it seems to be getting worse. He specifically denies lightheadedness or dizziness. He has not had tunnel vision associated with recent extreme fatigue episodes. He has had some temporary peripheral vision loss (motioned that it is like having blindness on) for approximately 30 minutes at a time, 2-3 times over the past year, but it does not seem to be associated with episodes of extreme fatigue. He also notes that he will be sitting at rest and all of the sudden feel short of breath or as though he can't get a deep breath in for no reason. He has had associated body and joint aches during these episodes. The patient has been on propanolol 80 mg twice daily which he reports he takes for tinnitus and for the duration of his extreme fatigue symptoms, approximately 1 year. The patient reports chronic headaches which sound like cluster migraines that are left sided and behind the eye that occur 2-3 times per week and are relieved with Tylenol. His other chronic complaints include: Progressive worsening tinnitus, reproducible left-sided chest/sternal pain consistent with costochondritis, epigastric burning pain with alcohol, soda, orange juice, carbonation or spicy food and diarrhea every other day. He currently denies lightheadedness, dizziness, epistaxis, flushing sensation, diaphoresis, headache, chest pain or pressure, shortness of breath, abdominal pain, nausea, vomiting, fever, chills, dysuria, diarrhea or constipation. He reports he feels significantly improved compared to this morning. He also has a previous history of what sounds to be a hypertensive emergency with TIA in which he had chest pain, flushing and expressive aphasia associated with significant hypertension. He had an extensive workup including: Nuclear medicine stress test, EGD, colonoscopy, CTA of coronary arteries and chest, CT and MRI brain, and cardiology evaluation at [facility] in [place], in which no etiology was discovered. In the ED, EKG demonstrated sinus bradycardia, troponin was negative x2, chest x-ray was within normal limits and without cardiomegaly or any acute cardiopulmonary process, vital signs were stable, heart rate 40-50's. He received atropine without any change to heart rate. ED provider contacted Cardiology who recommend observation and telemetry over night. The patient and his spouse recently moved here from [place], [place] 3 months ago and he has no PCP. Discharge Providers Date of admission: 04/12/19 12:37 Discharge Date: 04/13/19 Consults: 04/12/19 14:13 Consult to Discharge Planning Routine Comment: Consult to Physical Therapy Evaluate & Treat Comment: Physician Instructions: Evaluate and Treat Discharge provider: Monie May DO Summary Discharge Diagnosis: 1. Acute on chronic symptomatic bradycardia, likely secondary to beta-chandu use, present on admission. Resolved. 2. Probable obstructive sleep apnea, chronic, present on admission. Active. 3. Hypertension, chronic, present on admission. Stable. 4. Depression, chronic, present on admission. Stable. 5. Morbid obesity, chronic, present on admission. Stable. 6. Tinnitus, chronic, present on admission. Stable. Hospital Course: Jamison Spears is a 53-year-old male with a past medical history significant for hypertension, tinnitus, depression, and possible sleep apnea who presented to the ED with extreme fatigue related to symptomatic bradycardia. 1. Acute on chronic symptomatic bradycardia, likely secondary to beta-chandu use, present on admission. Resolved. -Patient presented with progressive worsening of extreme fatigue with associated nausea and body/joint aches. -On arrival to ED, patient was found to be significantly bradycardic HR 40-50's. -Received 1 L NS x1 in ED with improvement of extreme fatigue. Continued IV maintenance fluids with normal saline 100 mL/hr to assure adequate hydration and increase cerebral perfusion. -EKG demonstrated sinus rhythm, bradycardia HR 42, borderline axis, normal intervals, poor R-wave progression, no heart block, pathological Q-waves or acute ischemic changes such as ST elevation or depression. -Initial troponin normal at < 0.012 x 3. -Continued to monitor closely on telemetry. Resting HR trended up to high 40's to mid 50's and with ambulation high 80's. Patient discharged to follow-up with cardiology this week and possible exercise stress test to evaluate need for pacemaker in future. -Continued to neurological status closely. -TSH normal at 3.42. with reflex to free T4, pending. -Discontinued propanolol. Half-life of propanolol 2-6 hours for immediate release and 8 hours for extended release. If patient has chronically been on propanolol then it may have a longer half life due to saturation of liver binding sites. -Cardiology recommended admission overnight for observation on telemetry. Low threshold to contact Cardiology if patient becomes symptomatic or has significant bradycardia HR <40 for further guidance. -Placed pacemaker pads by room and will not hesitate to place on patient if HR < 40. -Ordered but not needed glycopyrrolate and glucagon (reversal agent for beta- chandu) for symptomatic bradycardia or HR < 40 sustained for 1 minute. Plan would be to administer glycopyrrolate 0.1 mg IV x1 and monitor for response. If patient unresponsive then administered glucagon 5 mg IV x1 and monitor for response. If patient responsive and persistently bradycardic then he would need a glucagon infusion as bradycardia would be due to beta-chandu. If he does not respond to 1st bolus repeat glucagon 5 mg IV x1 after 10-15 minutes and if continues to be unresponsive start transcutaneous pacing and contact Cardiology for further guidance. 2. Probable obstructive sleep apnea, chronic, present on admission. Active. -CPAP on patient overnight and tolerated well and reports more sound sleep. -Recommended outpatient sleep study. 3. Hypertension, chronic, present on admission. Stable. -Continued losartan 50 mg daily. Discontinued propanolol which was used off- label for tinnitus. BP well controlled. -Continued to monitor blood pressure closely. Recommended continued evaluation outpatient and titration up of losartan or addition of amlodipine if further BP control needed. 4. Depression, chronic, present on admission. Stable. -Continued sertraline 100 mg daily. 5. Morbid obesity, chronic, present on admission. Stable. -BMI 39.9. -Risk stratified with hemoglobin A1c normal at 5.4% and fasting lipid panel which demonstrated good control other than trigylcerides: Total cholesterol 169, triglycerides 186 (goal < 150), LDL 92, and HDL 40. -Counseled patient extensively on lifestyle modification including: Diet and exercise. 6. Tinnitus, chronic, present on admission. Stable. -Discontinued propanolol which was used off-label for tinnitus. -Recommended audiology evaluation and treatment. Status at Discharge Functional status at discharge: independent ambulation Overall status at discharge: patient is back to baseline Exam Vital Signs (past 8 hours): - 04/13/19 07:00 04/13/19 09:50 04/13/19 09:52 Pulse Rate 62 59 L Pulse Rate [Orthostatic Lying] 57 L Pulse Rate [Orthostatic Sitting] 58 L Pulse Rate [Orthostatic Standing] 59 L 58 L Respiratory Rate 18 Blood Pressure 113/64 135/70 Blood Pressure [Orthostatic Lying] 128/58 L Blood Pressure [Orthostatic Sitting] 130/71 Blood Pressure [Orthostatic Standing] 131/62 135/70 Pulse Oximetry 96 Oxygen Delivery Method Room Air Oxygen Flow Rate 0 Narrative Exam Narrative: General: Middle-aged obese gentleman sitting in bed and in no acute distress, w ell-developed, well-nourished, appropriately interactive. HEENT: Normocephalic, atraumatic. External ears without defect. Pupils equal, round, and reactive to light. Anicteric sclerae, moist conjunctivae, and no lid lag. Poor dentition. Neck: Supple with full range of motion. No jugular venous distension. No bruits. No lymphadenopathy or thyromegaly. Cardiovascular: Regular rhythm, bradycardic, without murmurs, rubs, or gallops appreciated. Reproducible chest pain on palpation. Pulmonary: Clear to auscultation bilaterally without crackles, wheezes, or rhonchi. Normal respiratory effort with no use of accessory muscles. Abdomen: Soft, bowel sounds present, nontender, nondistended. No hepatosplenomegaly or masses appreciated. Extremities: No clubbing, cyanosis, or edema. Skin: Normal temperature, turgor, and texture; no rash, ulcers, or subcutaneous nodules appreciated. Neurological: Cranial nerves grossly intact. Normal muscle strength, tone, and bulk. Reflexes, coordination, and sensory function within normal limits. No known gait impairment. Psychiatric: Normal mood and affect. Alert and oriented to person, place, and time. Objective Labs Result Diagrams: 04/12/19 09:08 04/12/19 09:08 Labs: Laboratory Results - last 24 hr 04/12/19 04/12/19 04/12/19 09:04 12:10 18:15 Magnesium 2.0 Troponin I < 0.012 TSH 3.42 Discharge Plan Discharge Plan Patient Disposition: Home Discharge comment: You're being discharged home. The cause of your symptomatic bradycardia was due to propanolol use. Please discontinue this medication indefinitely. You likely have obstructive sleep apnea and recommend a referral for a sleep study to evaluate and if present will need to be treated with CPAP. Please continue to monitor your blood pressure very closely. Your blood pressure medication losartan may be increased if your blood pressure is not well controlled. Your echocardiogram did not demonstrate any significant findings other than mild left ventricular hypertrophy (thickened muscle) likely due to uncontrolled high blood pressure in the past and possible obstructive sleep apnea. Recommend a referral to Cardiology that needs to be placed by your primary care physician and Cardiology has your information and should be giving you a phone call. You may need to have an exercise stress test or a heart monitor placed. 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 Please follow-up at [facility] at your scheduled appointment regarding your hospitalization and referrals for Cardiology and a sleep study. Please implement lifestyle modification including diet and exercise as discussed. You should try to lose approximately 10% of your body weight. The [place] [employer] recommends 150 minutes of moderate intensity (85% max HR which is 150 for you) exercise per week. If you are relatively inactive start with small obtainable goals and slowly work your way up. Discharge Med Rec/Prescriptions Prescriptions: Continued losartan 50 mg PO DAILY RF: 0 sertraline 100 mg PO DAILY RF: 0 Discontinued propranolol 80 mg PO BID RF: 0 Provider Discharge Instructions Diet: Low-fat, Low-sodium and Low-cholesterol Activity: Activity as tolerated Visit Report/Discharge Packet Instructions: The Mediterranean Diet and Good Health, The DASH Diet, DI for Bradycardia Discharge Data Attending Provider: Monie May Admit Date/Time: 04/12/19 12:37 Discharges patient from system. Discharge Date/Time: 04/13/19 14:46
[2019-04-13 14:25] LABS: Cholesterol 169 mg/dL (140-199); HDL Cholesterol 40 mg/dL (40-60); LDL Cholesterol Calculated 92 mg/dL (<100); Triglycerides 186 mg/dL (35-150)
[2019-04-13 14:27] LABS: Hemoglobin A1C% w Est Avg Glu 5.4 % (4.0-6.0)
== END 2019-04-13 14:46 | disposition home or self-care (01) ==
LOC: ED 12:33 → AC 12:38 → ICU 16:20
PROVIDERS: Admitting Provider Internal Medicine; Emergency Provider Emergency Medicine; Visit Provider Internal Medicine
DX: R53.1 Weakness (principal); R00.1 Bradycardia, unspecified; I51.7 Cardiomegaly; I10 Essential (primary) hypertension
CPT/HCPCS: 36415; 36591; 71045; 80053; 80061; 82550; 83036; 83690; 83735; 84443; 84484; 85025; 85610; 85730; 93005; 93306; 94660; 94762; 96361; 96374; 97161; 99285; G0378; J0461

== ENCOUNTER 2019-06-26 18:41 | Emergency (ER) | payer OTHER, SELFPAY ==
[2019-04-12 12:48] VITALS: BMI 39.4
[2019-06-26 18:46] VITALS: BP 143/90; PULSE 57; RESP 12; TEMP 36.7; O2SAT 96
--- NOTE | 2019-06-26 18:49 | DI.RAD.S_ITS ---
PROCEDURE: XR TIBIA FUBULA RT 2V INDICATIONS: crush injury TECHNIQUE: 2 views of the tibia and fibula were acquired. COMPARISON: None. FINDINGS: Bones: No fractures or dislocations. No suspicious bony lesions. Soft tissues: No suspicious soft tissue calcifications or masses. IMPRESSION: No visualized acute fracture or dislocation. However, if clinical concern and/or pain persist, short interval imaging followup in 7-10 days is recommended, as occult injury cannot be definitively excluded. Dictated by: Geeta Montes M.D. on 06/26/2019 at 19:34 Approved by: Geeta Montes M.D. on 06/26/2019 at 19:34
[2019-06-26] MEDS: TET,DIPH,PERTUSS(ACELL),VAC/PF 0.5 ML SYRINGE IM (21:36)
[2019-06-26 22:46] VITALS: BP 120/61; PULSE 53; RESP 16; O2SAT 96
--- NOTE | 2019-06-26 22:46 | ED_ITS ---
HPI - Extremity Injury (Lower) General Chief Complaint: Extremity Injury, Lower Stated Complaint: RIGHT LEG TWO PIPES FELL ON IT Time Seen by Provider: 06/26/19 22:46 Source: patient Mode of arrival: Wheelchair Limitations: no limitations History of Present Illness HPI Narrative: This is a 53-year-old male comes to the emergency department with complaint of crush type injury. 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 He states they way about 3000 lb. It was not crushed between 2 but more struck the side of his leg. It hit from the inside. Patient states he has had pain. He is able to weight bear but it is uncomfortable. He denies any numbness, no tingling. He he states that the leg does not feel tight on the o utside. Patient does have some abrasions and bruising. He has not take anything for pain. The history of hypertension and dyslipidemia and takes medication for depression. He has had prior hernia repair. Denies any allergies to medications. Related Data Home Medications Medication Instructions Recorded Confirmed losartan 50 mg PO DAILY 04/12/19 06/11/19 sertraline 100 mg PO DAILY 04/12/19 06/11/19 Previous Rx's Medication Instructions Recorded hydrocodone-acetaminophen [Wittman] 1 tab PO Q6H PRN #10 tab 06/26/19 Allergies Allergy/AdvReac Type Severity Reaction Status Date / Time No Known Drug Allergies Allergy Verified 06/26/19 18:49 Review of Systems Review of Systems ROS Unobtainable: All systems reviewed & are unremarkable except as noted in HPI and below Patient History Medical/Surgical History Medical History Depression (Acute) HTN (hypertension) (Acute) Strangulated umbilical hernia (Acute) Tinnitus (Acute) Surgical History H/O umbilical hernia repair (Acute) No pertinent past surgical history (Acute) Family History Mother Macular degeneration Father Heart valve disease Sister Malignant hypertension Social History household members: spouse Smoking Status: Never smoker Family/Social History Social History household members: spouse Smoking Status: Never smoker alcohol intake frequency: holidays/special occasions only Substance Use Type: does not use Exam Narrative Exam Narrative: GENERAL: Alert and oriented x three, obese male in mild distress. HEENT: Head normocephalic, atraumatic, EOMI, pupils reactive, face symmetric, moist mucous membranes NECK: Supple, full range of motion CARDIOVASCULAR: Regular rate and rhythm without murmurs, rubs or gallops. RESPIRATORY: Breath sounds equal bilaterally, no wheezes rales or rhonchi. EXTREMITIES: Normal range of motion of lower leg, patient does have good dorsiflexion plantar flexion, he has improvement of his pain with forced dorsiflexion. Patient's leg is not tight, it is soft, he is tender but not exquisitely so on exam. He does have a large abrasion as well as several small very superficial abrasions over the calf. There is some mild to moderate ecchymosis but not significant amount, and there is no hematoma palpated. He has 2+ dorsalis pedis bilaterally as well as 2+ tibialis., no clubbing. Patient's calf circumference appears to the other without increase in size in comparison. Neurovascularly intact NEUROLOGICAL: Cranial nerves II through XII grossly intact. Moving all extremities SKIN: Warm, dry, no petechiae, see above Initial Vital Signs Initial Vital Signs: Vital Signs Temperature 98.1 F 06/26/19 18:46 Pulse Rate 57 L 06/26/19 18:46 Respiratory Rate 12 06/26/19 18:46 Blood Pressure 143/90 H 06/26/19 18:46 Pulse Oximetry 96 06/26/19 18:46 Course Orders Ordered: Discontinued Medications Hydrocodone Bitart/Acetaminophen (Vicodin Prepack) 1 bottle MISC SEEINSTR ONE Stop: 06/26/19 22:56 Last Admin: 06/26/19 23:12 Dose: 1 bottle Documented by: MMCFARL Diphtheria/Tetanus/Acell Pertussis (Adacel) 0.5 ml IM .ONCE ONE Stop: 06/26/19 21:34 Last Admin: 06/26/19 21:36 Dose: 0.5 ml Documented by: MMCFARL Morphine Sulfate (Morphine) 4 mg IM NOW ONE Stop: 06/26/19 22:56 Last Admin: 06/26/19 23:12 Dose: 4 mg Documented by: MAURICIO Vital Signs Vital signs: Vital Signs - 8 hr 06/26/19 18:46 06/26/19 22:46 Temperature 98.1 F Pulse Rate 57 L 53 L Respiratory Rate 12 16 Blood Pressure 143/90 H Blood Pressure [Left Arm] 120/61 Pulse Oximetry 96 96 [facility] - Extremity Injury (Lower) Imaging Data tib fib xray: Radiologist's impression: [address] [address] XRay Report Signed Patient: Jamison Spears LMR#: [id number] : 1965Acct:[id number] Age/Sex: 53 / MDate of Service: 06/26/19 Loc: ED Accession Number: [id number] Procedure: XR tibia fibula RT 2V Ordering Provider: Brianna Amin D.O. PROCEDURE: XR TIBIA FUBULA RT 2V INDICATIONS: crush injury TECHNIQUE: 2 views of the tibia and fibula were acquired. COMPARISON: None. FINDINGS: Bones: No fractures or dislocations. No suspicious bony lesions. Soft tissues: No suspicious soft tissue calcifications or masses. IMPRESSION: No visualized acute fracture or dislocation. However, if clinical concern and/or pain persist, short interval imaging followup in 7-10 days is recommended, as occult injury cannot be definitively excluded. Dictated by: Geeta Montes M.D. on 06/26/2019 at 19:34 Approved by: Geeta Montes M.D. on 06/26/2019 at 19:34 [facility] Narrative Medical decision making narrative: Patient certainly is at risk for compartment syndrome although on his exam he does not appear to be he appears uncomfortable but not significantly or excessively so. We discussed signs and symptoms to watch for and my concerns. Will give a single dose of IM medication here has patient prefers to do this rather than p.o. and then a short-term prescription as well as prepack for pain medication. Plan for conservative management and we discussed at length reasons and signs and symptoms to return emergently. Patient and significant other at bedside both expressed understanding. Discharge Plan Departure Patient Disposition: Home Clinical Impression: Contusion of leg, right, Abrasion of leg Discharge Date/Time: 06/26/19 23:25 Instructions: Acute Compartment Syndrome Activity Restrictions/Additional Instructions: Follow-up with primary care orthopedic surgery in the next 48-72 hours for recheck. You may take ibuprofen up to 800 mg every 8 hours as needed. You may take pain medication as prescribed, this medication can make you sleepy do not drive, perform hazardous activities or make any major decisions while taking it. Use ice to the affected area as needed. Elevate your extremity. You may weight bear as tolerated but I would recommend using crutches Elevated your extremity above the heart when you are not walking. Do not stand for prolonged periods. Return to the ER for increasing swelling, if your light leg becomes tight or r ock hard, if her having rapidly increasing pain, new numbness, loss of sensation, new weakness in her foot, if he is pale, blue or other new or concerning symptoms. Prescriptions: New hydrocodone-acetaminophen [Wittman] 5-325 mg tablet 1 tab PO Q6H PRN (Reason: pain) Qty: 10 RF: 0 No Action losartan 50 mg PO DAILY RF: 0 sertraline 100 mg PO DAILY RF: 0 Referrals: Elayne Newton MD [Physician] -
[2019-06-26] MEDS: MORPHINE 4 MG/ML INJ IM (23:12)
[2019-06-26] MEDS: HYDROCODONE/ACET 5/325 PREPACK 1 BOTTLE MISC (23:12)
[2019-06-26 23:25] VITALS: BP 120/63; PULSE 56; RESP 18; O2SAT 99
== END 2019-06-26 23:25 | disposition home or self-care (01) ==
PROVIDERS: Emergency Provider Emergency Medicine
DX: S80.11XA Contusion of right lower leg, initial encounter (principal); S80.811A Abrasion, right lower leg, initial encounter; Z23 Encounter for immunization; Y99.0 Civilian activity done for income or pay
CPT/HCPCS: 73590; 90471; 96372; 99282; 99283; 90715; J2270

== ENCOUNTER → 2020-02-24 07:44 | Outpatient (CLI) | payer OTHER, SELFPAY ==
[2019-04-12 12:48] VITALS: BMI 39.4
[2020-02-24 08:25] LABS: Add Manual Diff / Slide Review NO; Basophils Absolute Auto 100 /uL (0-100); Eosinophils Absolute Auto 100 /uL (0-450); Eosinophils Percent Auto 2.1 % (2-4); Hematocrit 42.7 % (41-53); Hemoglobin 14.6 g/dL (13.5-17.5); Lymphocytes Absolute Auto 1600 /uL (1100-4500); Lymphocytes Percent Auto 24.9 % (25-40); Mean Corpuscular HGB Conc 34.1 % (30-36); Mean Corpuscular Hemoglobin 29.9 PG (26-34); Mean Corpuscular Volume 87.7 fL (80-100); Monocytes Absolute Auto 400 /uL (0-900); Monocytes Percent Auto 6.8 % (3-14); Neutrophils Absolute Auto 4200 /uL (1500-7000); Neutrophils Percent Auto 65.2 % (50-75); Platelet Count 256 X10^3/uL (150-400); Red Blood Cell Count 4.87 X10^6/uL (4.5-5.9); Red Cell Distribution Width 14.1 % (11.6-14.8); White Blood Cell Count 6.4 X10^3/uL (4.5-11.0)
[2020-02-24 08:31] LABS: Hemoglobin A1C% w Est Avg Glu 5.6 % (4.0-6.0)
[2020-02-24 08:39] LABS: Alanine Aminotransferase 43 IU/L (<50); Albumin 4.8 g/dL (3.5-5.0); Albumin Globulin Ratio 1.7 (1.0-2.8); Alkaline Phosphatase 52 U/L (38-126); Aspartate Aminotransferase 29 IU/L (17-59); BUN Creatinine Ratio 15.8 (6-22); Bilirubin Total 0.5 mg/dL (0.2-1.3); Blood Urea Nitrogen 12 mg/dL (9-20); Calcium 9.5 mg/dL (8.4-10.2); Carbon Dioxide 27 mmol/L (22-32); Chloride 103 mmol/L (98-107); Cholesterol 176 mg/dL (140-199); Estimated Glomerular Filt Rate > 60.0 mL/min (>60); Globulin 2.9 g/dL (1.7-4.1); Glucose 117 mg/dL (70-100); HDL Cholesterol 46 mg/dL (40-60); HEMOLYSIS < 15 (0-50); LDL Cholesterol Calculated 113 mg/dL (<100); Potassium 4.8 mmol/L (3.4-5.1); Sodium 139 mmol/L (137-145); Total Protein 7.7 g/dL (6.3-8.2); Triglycerides 84 mg/dL (35-150)
== END ==
PROVIDERS: PCP Internal Medicine; Referring Provider Internal Medicine; Visit Provider Internal Medicine
DX: Z00.00 Encounter for general adult medical examination without abnormal findings (principal); E78.5 Hyperlipidemia, unspecified
CPT/HCPCS: 36415; 80053; 80061; 83036; 85025

== ENCOUNTER 2020-05-02 14:33 | Emergency (ER) | payer OTHER, SELFPAY ==
[2019-04-12 12:48] VITALS: BMI 39.4
[2020-05-02 14:36] VITALS: BP 163/103; PULSE 93; RESP 20; TEMP 36.8; O2SAT 96; BMI 40.6
--- NOTE | 2020-05-02 16:04 | PC.NURSE ---
pt states he is having intermitten swelling and tingling in his leg. Pt states this gets worse then better without reason. Pt is concerned no one checked him for compartment syndrome when it occured one year ago and feels as though it is possible he has it now.
[2020-05-02] MEDS: KETOROLAC 60 MG/2 ML VIAL 30 MG IM (16:39)
[2020-05-02] MEDS: CYCLOBENZAPRINE 10 MG TABLET PO (16:39)
[2020-05-02] MEDS: LIDOCAINE PATCH 1 EACH ADH..PATCH TOP (16:43)
[2020-05-02 17:28] VITALS: BP 134/85; PULSE 67; RESP 14; O2SAT 100
--- NOTE | 2020-05-02 20:11 | ED_ITS ---
HPI - Extremity Injury (Lower) <ASTRID Hardy - Last Filed: 05/02/20 20:19> General Chief Complaint: Extremity Injury, Lower Stated Complaint: leg crushed at work year ago/swelling pain Time Seen by Provider: 05/02/20 14:47 Source: patient Mode of arrival: Ambulatory Limitations: no limitations History of Present Illness HPI Narrative: The patient is a 54-year-old male nonsmoker who presents with a chief complaint of ?. I am concerned that I have compartment syndrome he states he had a crush injury last year to his right lower leg, and was never checked for compartment syndrome. Given that he is continuing to have pain in his right lower leg, he is concerned about compartment syndrome. He states he has had a difficult course since his injury almost a year ago, and that he sees an orthopedist, but that orthopedist is out of town so he came to the emergency department. He has not taken anything for pain. He does note that he restarted work last week, and then felt as though his pain was harder to control. He states that his pain is worse by ambulation and driving as he is sitting for a long time. He states that has right lower leg pain comes and goes. Related Data Home Medications Medication Instructions Recorded Confirmed losartan 50 mg PO DAILY 04/12/19 06/11/19 sertraline 100 mg PO DAILY 04/12/19 06/11/19 Previous Rx's Medication Instructions Recorded hydrocodone-acetaminophen [[place]] 1 tab PO Q6H PRN #10 tab 06/26/19 cyclobenzaprine 10 mg PO TID PRN #14 tab 05/02/20 ketorolac 10 mg PO TID PRN #15 tab 05/02/20 lidocaine 1 patch TOP DAILY PRN #15 each 05/02/20 Allergies Allergy/AdvReac Type Severity Reaction Status Date / Time No Known Drug Allergies Allergy Verified 06/26/19 18:49 Review of Systems <ASTRID Hardy - Last Filed: 05/02/20 20:19> Review of Systems Narrative: GENERAL: Denies chills, fatigue, malaise, fever, sweats. HEENT: Denies sinus pain, ear pain, sore throat, difficulty swallowing, dizziness. RESPIRATORY: Denies dyspnea, cough, wheezing, hemoptysis, sputum. CARDIOVASCULAR: Denies chest pain, palpitations, orthopnea, edema, GASTROINTESTINAL: Denies nausea, vomiting, abdominal pain, diarrhea, constipation, melena. : Denies dysuria, frequency, incontinence, hematuria, urinary retention. MUSCULOSKELETAL: See HPI SKIN: Denies rash, skin lesions, or other NEUROLOGIC: Denies weakness, headache, numbness, change in speech, confusion, seizures, incoordination. PSYCHIATRIC: No concerning psychosocial issues. 12 point review of systems is negative except for those stated above Patient History <ASTRID Hardy - Last Filed: 05/02/20 20:19> Medical History Depression (Acute) HTN (hypertension) (Acute) Strangulated umbilical hernia (Acute) Tinnitus (Acute) Surgical History H/O umbilical hernia repair (Acute) No pertinent past surgical history (Acute) Family History Mother Macular degeneration Father Heart valve disease Sister Malignant hypertension Social History household members: spouse Smoking Status: Never smoker Smoking Status: Never smoker alcohol intake frequency: holidays/special occasions only Substance Use Type: does not use Exam <ASTRID Hardy - Last Filed: 05/02/20 20:19> Narrative Exam Narrative: GENERAL: This is a well-nourished, well-developed patient, in no acute distress HEAD: Atraumatic. Normocephalic. No temporal or scalp tenderness. EYES: Pupils equal round and reactive. Extraocular motions intact. No scleral icterus. No injection or drainage. ENT: Nose without bleeding, purulent drainage or septal hematoma. Throat without erythema, tonsillar hypertrophy or exudate. Uvula midline. Airway patent. NECK: Trachea midline. No JVD or lymphadenopathy. Supple, nontender, no meningeal signs. CARDIOVASCULAR: Regular rate and rhythm RESPIRATORY: No cough. No increased respiratory effort. No accessory muscle use. EXTREMITIES: Diffuse tenderness to palpation right lower leg. No swelling noted on exam. Positive right pedal pulses. Capillary refill less than 2 seconds all toes right foot. Able to flex extend pronate supinate right foot with no change in pain. Leg is soft to palpation. NEURO: AOx3. SKIN: No rash or erythema. Initial Vital Signs Initial Vital Signs: Vital Signs Temperature 98.3 F 05/02/20 14:36 Pulse Rate 93 H 05/02/20 14:36 Respiratory Rate 20 05/02/20 14:36 Blood Pressure 163/103 H 05/02/20 14:36 Pulse Oximetry 96 05/02/20 14:36 <Christine Clark DO - Last Filed: 05/02/20 20:40> Initial Vital Signs Initial Vital Signs: Vital Signs Temperature 98.3 F 05/02/20 14:36 Pulse Rate 93 H 05/02/20 14:36 Respiratory Rate 05/02/20 14:36 Blood Pressure 163/103 H 05/02/20 14:36 Pulse Oximetry 96 05/02/20 14:36 Scores <ASTRID Hardy - Last Filed: 05/02/20 20:19> GCS Anderson coma scale eye opening: Spontaneous [place] coma scale verbal response: Orientated [place] coma scale motor response: Obey commands Anderson coma scale total score: 15 Course <ASTRID Hardy - Last Filed: 05/02/20 20:19> Orders Ordered: Discontinued Medications Cyclobenzaprine HCl (Flexeril) 10 mg PO NOW ONE Stop: 05/02/20 16:29 Last Admin: 05/02/20 16:39 Dose: 10 mg Documented by: SHANU Ketorolac Tromethamine (Toradol) 30 mg IM NOW ONE Stop: 05/02/20 16:29 Last Admin: 05/02/20 16:39 Dose: 30 mg Documented by: SHAUN Lidocaine (Lidoderm) 1 each TOP NOW ONE Stop: 05/02/20 16:29 Last Admin: 05/02/20 16:43 Dose: 1 each Documented by: SHAUN Vital Signs Vital signs: Vital Signs - 8 hr 05/02/20 14:36 05/02/20 17:28 Temperature 98.3 F Pulse Rate 93 H 67 Respiratory Rate 20 14 Blood Pressure 163/103 H 134/85 Pulse Oximetry 96 100 <Christine Clark DO - Last Filed: 05/02/20 20:40> Orders Ordered: Discontinued Medications Cyclobenzaprine HCl (Flexeril) 10 mg PO NOW ONE Stop: 05/02/20 16:29 Last Admin: 05/02/20 16:39 Dose: 10 mg Documented by: SHAUN Ketorolac Tromethamine (Toradol) 30 mg IM NOW ONE Stop: 05/02/20 16:29 Last Admin: 05/02/20 16:39 Dose: 30 mg Documented by: SHAUN Lidocaine (Lidoderm) 1 each TOP NOW ONE Stop: 05/02/20 16:29 Last Admin: 05/02/20 16:43 Dose: 1 each Documented by: SHAUN Vital Signs Vital signs: Vital Signs - 8 hr 05/02/20 14:36 05/02/20 17:28 Temperature 98.3 F Pulse Rate 93 H 67 Respiratory Rate 20 14 Blood Pressure 163/103 H 134/85 Pulse Oximetry 96 100 MDM - Extremity Injury (Lower) <LA Hardy-BC - Last Filed: 05/02/20 20:19> MDM Narrative Medical decision making narrative: The patient is a 54-year-old male who presents with a chief complaint of right lower leg pain for the past year for which she sees a [facility] provider. He states he is specifically concerned about compartment syndrome. I discussed at length that he is neurovascularly intact, his leg is soft to palpation, and having compartment syndrome a year after an injury is very unlikely. He did feel improvement after the above-stated therapies. I discussed at length monitoring for neurovascular integrity, following up with PCP/on eye provider and coming back to the emergency department for any acute concerns. Patient has no questions or concerns upon discharge and states understanding return precautions as well as follow-up care. Discharge Plan Departure Patient Disposition: Home Clinical Impression: Chronic leg pain Qualifiers: Laterality: right Qualified Code(s): M79.604 - Pain in right leg Discharge Date/Time: 05/02/20 17:48 Instructions: How To Perform RICE (Rest, Ice, Compress, Elevate), DI for Leg Pain Activity Restrictions/Additional Instructions: Thank you for trusting us with your care today. As I discussed, your presentation does not correlate with compartment syndrome. I sent 3 prescriptions to [facility] including a muscle relaxer, ketorolac or Toradol, and lidocaine patch I have given you a prescription of Toradol. This is an NSAID. Do not combine it with other NSAIDs such as Aleve or ibuprofen. I suggest taking it with some food, as it can irritate your stomach. Please follow-up with your [facility] provider in the next few days Please come back to the emergency department for any acute concerns. Prescriptions: New ketorolac 10 mg tablet 10 mg PO TID PRN (Reason: pain) Qty: 15 RF: 0 cyclobenzaprine 10 mg tablet 10 mg PO TID PRN (Reason: muscle spasm) Qty: 14 RF: 0 lidocaine 5 % adhesive patch,medicated 1 patch TOP DAILY PRN (Reason: pain) Qty: 15 RF: 0 No Action losartan 50 mg PO DAILY RF: 0 sertraline 100 mg PO DAILY RF: 0 hydrocodone-acetaminophen [[place]] 5-325 mg tablet 1 tab PO Q6H PRN (Reason: pain) Qty: 10 RF: 0 Stand Alone Forms: Work Release Note <Christine Clark DO - Last Filed: 05/02/20 20:40> Cosign ED Attending Pennyature Attestation: I was immediately available in the department for consultation. Documentation has been reviewed. I agree with assessment and plan.
== END 2020-05-02 17:48 | disposition home or self-care (01) ==
PROVIDERS: Emergency Provider Nurse Practitioner Family
DX: M79.604 Pain in right leg (principal); Y99.0 Civilian activity done for income or pay
CPT/HCPCS: 99283; J1885

== ENCOUNTER 2020-05-05 05:31 | Emergency (ER) | payer OTHER, SELFPAY ==
[2019-04-12 12:48] VITALS: BMI 39.4
[2020-05-05 05:39] VITALS: BP 170/97; PULSE 86; RESP 17; TEMP 36.8; O2SAT 98; BMI 40.6
--- NOTE | 2020-05-05 05:39 | ED.GENADULT ---
HPI - General Adult General Chief complaint: Extremity Injury, Lower Stated complaint: Rt lower leg pain (work injury in oct Time Seen by Provider: 05/05/20 05:35 Source: patient Mode of arrival: Ambulatory Limitations: no limitations History of Present Illness HPI narrative: Patient is a 54 year old male who is seen here in the emergency department just a couple days ago for pain in his right lower extremity. Symptoms and heard after an injury that he sustained almost 1 year ago. He was seen a couple days ago for concern of compartment syndrome. Was discharged home with lidocaine patches and Flexeril. He states that the lidocaine patches and Flexeril have been helping his symptoms however he did not take them last evening because he knew he had to go back to work today. He states he feels like he cannot go to work today she given the emergency department for a work note. Related Data Home Medications Medication Instructions Recorded Confirmed losartan 50 mg PO DAILY 04/12/19 06/11/19 sertraline 100 mg PO DAILY 04/12/19 06/11/19 Previous Rx's Medication Instructions Recorded hydrocodone-acetaminophen [[place]] 1 tab PO Q6H PRN #10 tab 06/26/19 cyclobenzaprine 10 mg PO TID PRN #14 tab 05/02/20 ketorolac 10 mg PO TID PRN #15 tab 05/02/20 lidocaine 1 patch TOP DAILY PRN #15 each 05/02/20 Allergies Allergy/AdvReac Type Severity Reaction Status Date / Time No Known Drug Allergies Allergy Verified 06/26/19 18:49 Patient History Medical History Depression (Acute) HTN (hypertension) (Acute) Strangulated umbilical hernia (Acute) Tinnitus (Acute) Surgical History H/O umbilical hernia repair (Acute) No pertinent past surgical history (Acute) Family History Mother Macular degeneration Father Heart valve disease Sister Malignant hypertension Social History household members: spouse Smoking Status: Never smoker Smoking Status: Never smoker alcohol intake frequency: holidays/special occasions only Substance Use Type: does not use Exam Initial Vital Signs Initial Vital Signs: Vital Signs Temperature 98.2 F 05/05/20 05:39 Pulse Rate 86 05/05/20 05:39 Respiratory Rate 17 05/05/20 05:39 Blood Pressure 170/97 H 05/05/20 05:39 Pulse Oximetry 98 05/05/20 05:39 Const General: cooperative and healthy appearing Resp Effort & Inspection: normal respiratory effort Cardio Rate: regular rate Pulses: dorsalis pedis present on the right Skin Lesions: no lesions Rashes: no rashes Other: Well-healed wound anterior right alba. No signs of erythema. Neuro Other: Decreased sensation over the anterior aspect of his right alba which she states is not different from his baseline Extrem General: capillary refill normal and No edema Psych Appearance: grossly normal and well kempt Course Vital Signs Vital signs: Vital Signs - 8 hr 05/05/20 05:39 Temperature 98.2 F Pulse Rate 86 Respiratory Rate 17 Blood Pressure 170/97 H Pulse Oximetry 98 Medical Decision Making MDM Narrative Medical decision making narrative: Patient is here for work note. He states that the medicine he received a couple days ago seem to be workup for him somewhat. Feel we can hold on further workup for now. Will have him call his orthopedic surgeon for follow-up the beginning of next week. He was given return precautions. Expressed understanding and agreement. Discharge Plan Departure Patient Disposition: Home Clinical Impression: Chronic leg pain Qualifiers: Laterality: right Qualified Code(s): M79.604 - Pain in right leg Activity Restrictions/Additional Instructions: Recommend that you continue your medications as directed. Also recommend that you talk with her orthopedic doctor about his thoughts on he syndrome called complex regional pain syndrome. Return to the emergency department for any new or worsening symptoms Prescriptions: No Action losartan 50 mg PO DAILY RF: 0 sertraline 100 mg PO DAILY RF: 0 hydrocodone-acetaminophen [[place]] 5-325 mg tablet 1 tab PO Q6H PRN (Reason: pain) Qty: 10 RF: 0 ketorolac 10 mg tablet 10 mg PO TID PRN (Reason: pain) Qty: 15 RF: 0 cyclobenzaprine 10 mg tablet 10 mg PO TID PRN (Reason: muscle spasm) Qty: 14 RF: 0 lidocaine 5 % adhesive patch,medicated 1 patch TOP DAILY PRN (Reason: pain) Qty: 15 RF: 0 Stand Alone Forms: Work Release Note
== END 2020-05-05 06:07 | disposition home or self-care (01) ==
PROVIDERS: Emergency Provider Emergency Medicine
DX: M79.604 Pain in right leg (principal)
CPT/HCPCS: 99281

== ENCOUNTER 2020-05-11 13:43 | Emergency (ER) | payer OTHER, SELFPAY ==
[2019-04-12 12:48] VITALS: BMI 39.4
[2020-05-11 13:45] VITALS: BP 172/99; PULSE 91; RESP 16; TEMP 36.8; O2SAT 96; BMI 40.6
--- NOTE | 2020-05-11 14:00 | ED_ITS ---
HPI - Extremity Injury (Lower) General Chief Complaint: Extremity Injury, Lower Stated Complaint: right leg crush injury Time Seen by Provider: 05/11/20 13:54 Source: patient Mode of arrival: Ambulatory Limitations: no limitations History of Present Illness HPI Narrative: Patient is a 54-year-old male who presents with right leg pain. He has had chronic ongoing pain for the last 1 year after he had a crush injury with a complication of infection. 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 He says the swelling gets to be quite intense and the pain is severe. He has been to the emergency department 3 times already for pain. He has been unable to follow-up with his primary care doctor. He has been given lidocaine patches ketorolac and Flexeril. He has an appointment next week with the physician but is unable to wait until then for pain medication. He denies any fever chills cough shortness of breath. Related Data Home Medications Medication Instructions Recorded Confirmed losartan 50 mg PO DAILY 04/12/19 06/11/19 sertraline 100 mg PO DAILY 04/12/19 06/11/19 Previous Rx's Medication Instructions Recorded hydrocodone-acetaminophen [[place]] 1 tab PO Q6H PRN #10 tab 06/26/19 cyclobenzaprine 10 mg PO TID PRN #14 tab 05/02/20 ketorolac 10 mg PO TID PRN #15 tab 05/02/20 lidocaine 1 patch TOP DAILY PRN #15 each 05/02/20 ketorolac 10 mg PO TID PRN #14 tab 05/11/20 Allergies Allergy/AdvReac Type Severity Reaction Status Date / Time No Known Drug Allergies Allergy Verified 06/26/19 18:49 Review of Systems Review of Systems Narrative: GENERAL: Denies chills, fatigue, malaise, fever, sweats, travel HEENT: Denies sinus pain, ear pain, sore throat, difficulty swallowing, neck pain RESPIRATORY: Denies dyspnea, cough, wheezing, hemoptysis, sputum. CARDIOVASCULAR: Denies chest pain, palpitations, orthopnea, edema GASTROINTESTINAL: Denies nausea, vomiting, abdominal pain, diarrhea, co nstipation, melena. : Denies dysuria, frequency, incontinence, hematuria, urinary retention, flank pain. MUSCULOSKELETAL: See HPI SKIN: No rash, no erythema, no pruritus NEUROLOGIC: Denies weakness, dizziness, headache, numbness, change in speech, confusion PSYCHIATRIC: No concerning psychosocial issues. 12 point review of systems is negative except for those stated above and HPI Patient History Medical History Depression (Acute) HTN (hypertension) (Acute) Strangulated umbilical hernia (Acute) Tinnitus (Acute) Surgical History H/O umbilical hernia repair (Acute) No pertinent past surgical history (Acute) Family History Mother Macular degeneration Father Heart valve disease Sister Malignant hypertension Social History household members: spouse Smoking Status: Never smoker Smoking Status: Never smoker alcohol intake frequency: holidays/special occasions only Substance Use Type: does not use Exam Initial Vital Signs Initial Vital Signs: Vital Signs Temperature 98.3 F 05/11/20 13:45 Pulse Rate 91 H 05/11/20 13:45 Respiratory Rate 16 05/11/20 13:45 Blood Pressure 172/99 H 05/11/20 13:45 Pulse Oximetry 96 05/11/20 13:45 GENERAL: Well-appearing, well-nourished and in no acute distress. HEENT: Head atraumatic,EOMI, pupils reactive, face symmetric, moist mucous membranes CARDIOVASCULAR: Regular rate and rhythm without murmurs, rubs or gallops. RESPIRATORY: Breath sounds equal bilaterally, no wheezes rales or rhonchi. ABDOMEN: Soft, nontender. Normoactive bowel sounds all 4 quadrants. No guarding or rebound. EXTREMITIES: Normal range of motion, no clubbing or edema. Neurovascularly intact. Right lower leg no erythema calf is soft able to flex and extend ankle. Distal pedal pulse is present. Skin is quite sensitive and tender to touch NEUROLOGICAL: Alert and oriented x4.Normal gait and speech. SKIN: Warm, dry, no laceration, no petechiae, no rashes or lesions. Course Orders Ordered: ED Orders 05/11/20 14:01 US periph venous low extrem rt Stat 05/11/20 14:18 XR tibia fibula RT 2V Stat Discontinued Medications Ketorolac Tromethamine (Toradol) 30 mg IM NOW ONE Stop: 05/11/20 14:03 Last Admin: 05/11/20 14:09 Dose: 30 mg Documented by: SOBIA Vital Signs Vital signs: Vital Signs - 8 hr 05/11/20 13:45 05/11/20 15:33 Temperature 98.3 F Pulse Rate 91 H 77 Respiratory Rate 16 Blood Pressure 172/99 H 158/81 H Pulse Oximetry 96 94 MDM - Extremity Injury (Lower) Imaging Data US - DVT: Radiologist's Impression: PROCEDURE: US PERIPH VENOUS LOW EXTREM RT INDICATIONS: Leg swelling and pain TECHNIQUE: Real-time imaging, as well as color and pulse Doppler interrogation, were performed of the lower extremity deep veins from the inguinal ligament to the popliteal fossa. COMPARISON: None. FINDINGS: The common femoral, femoral and popliteal veins are normally compressible, and free of intraluminal thrombus. Color and pulse Doppler demonstrate normal phasic intraluminal flow. There is normal augmentation response to distal compression maneuver. IMPRESSION: No sonographic evidence of deep venous thrombosis in the right lower extremity. Dictated by: Sung Sol M.D. on 05/11/2020 at 15:34 Approved by: Sung Sol M.D. on 05/11/2020 at 15:35 Extremity x-ray #1: Radiologist's Impression: PROCEDURE: XR TIBIA FUBULA RT 2V INDICATIONS: pain prior injury TECHNIQUE: 2 views of the tibia and fibula were acquired. COMPARISON: [facility], MR, MR TIBIA FIBULA RIGHT WITHOUT CONTRAST, 09/29/2019, 14:52. [facility], CR, XR TIBIA FIBULA RIGHT, 07/01/2019, 18:03. [facility], CR, XR TIBIA FIBULA RT 2V, 06/26/2019, 19:05. FINDINGS: Bones: No acute fractures or dislocations. No suspicious bony lesions. An enthesophyte can be seen along the superior aspect of the patella. Incidental note is made of an enthesophyte at the Achilles insertion. Soft tissues: No suspicious soft tissue calcifications or masses. IMPRESSION: No significant plain film abnormality is seen for age. Dictated by: Pepe Pryor M.D. on 05/11/2020 at 14:10 MDM Narrative Medical decision making narrative: Patient's calf is soft the injury was over a year ago there is absolutely no sign of compartment syndrome. It seems as though his like it is more swollen when he is at work and the leg is staying down. I suspect that he has venous insufficiency from his injury because he says the swelling goes down and the pain improves when he elevates his leg. No sign of DVT x-ray is negative. Toradol seems to help a lot with his pain and his leg has been elevated while in the ED. I have discussed this with him. He has outpatient follow-up next week. Discharge Plan Departure Patient Disposition: Home Clinical Impression: Peripheral venous insufficiency, Chronic pain of lower extremity Discharge Date/Time: 05/11/20 15:35 Instructions: Chronic Venous Insufficiency Activity Restrictions/Additional Instructions: *You have been diagnosed with venous insufficiency *What to do: Elevate legs as much as possible wear compression socks when able *Continue to take medications as directed--> SENT TO [facility] [place] Ketorolac 10 mg every 8 hours if needed for pain *Follow up with your primary care provider in 2-3 days *Return to ER if you should have increasing redness swelling shortness of breath or any new, worsening or concerning symptoms Prescriptions: New ketorolac 10 mg tablet 10 mg PO TID PRN (Reason: pain) Qty: 14 RF: 0 No Action losartan 50 mg PO DAILY RF: 0 sertraline 100 mg PO DAILY RF: 0 hydrocodone-acetaminophen [[place]] 5-325 mg tablet 1 tab PO Q6H PRN (Reason: pain) Qty: 10 RF: 0 ketorolac 10 mg tablet 10 mg PO TID PRN (Reason: pain) Qty: 15 RF: 0 cyclobenzaprine 10 mg tablet 10 mg PO TID PRN (Reason: muscle spasm) Qty: 14 RF: 0 lidocaine 5 % adhesive patch,medicated 1 patch TOP DAILY PRN (Reason: pain) Qty: 15 RF: 0 Stand Alone Forms: Work Release Note
--- NOTE | 2020-05-11 14:03 | PC.NURSE ---
Reports recently started back to work light duty and sitting alot. Swelling increasing and pain has increased. Unable to see regular doctor and was told to come to ER.
[2020-05-11] MEDS: KETOROLAC 60 MG/2 ML VIAL 30 MG IM (14:09)
--- NOTE | 2020-05-11 14:18 | DI.RAD.S_ITS ---
PROCEDURE: XR TIBIA FUBULA RT 2V INDICATIONS: pain prior injury TECHNIQUE: 2 views of the tibia and fibula were acquired. COMPARISON: [facility], MR, MR TIBIA FIBULA RIGHT WITHOUT CONTRAST, 09/29/2019, 14:52. [facility], CR, XR TIBIA FIBULA RIGHT, 07/01/2019, 18:03. [facility], CR, XR TIBIA FIBULA RT 2V, 06/26/2019, 19:05. FINDINGS: Bones: No acute fractures or dislocations. No suspicious bony lesions. An enthesophyte can be seen along the superior aspect of the patella. Incidental note is made of an enthesophyte at the Achilles insertion. Soft tissues: No suspicious soft tissue calcifications or masses. IMPRESSION: No significant plain film abnormality is seen for age. Dictated by: Pepe Pryor M.D. on 05/11/2020 at 14:10 Approved by: Pepe Pryor M.D. on 05/11/2020 at 14:12
[2020-05-11 15:33] VITALS: BP 158/81; PULSE 77; O2SAT 94
== END 2020-05-11 15:35 | disposition home or self-care (01) ==
PROVIDERS: Emergency Provider Emergency Medicine
DX: I87.2 Venous insufficiency (chronic) (peripheral) (principal); M79.604 Pain in right leg
CPT/HCPCS: 73590; 93971; 96372; 99283; J1885

== ENCOUNTER 2020-05-16 05:57 | Emergency (ER) | payer OTHER, SELFPAY ==
[2019-04-12 12:48] VITALS: BMI 39.4
[2020-05-16 06:00] VITALS: BP 158/91; PULSE 76; RESP 20; TEMP 36.6; O2SAT 96; BMI 40.6
--- NOTE | 2020-05-16 06:03 | ED.GENADULT ---
HPI - General Adult General Chief complaint: Extremity Problem,Nontraumatic Stated complaint: right leg pain swollen Time Seen by Provider: 05/16/20 06:00 Source: patient Mode of arrival: Ambulatory Limitations: no limitations History of Present Illness HPI narrative: Patient is a 54-year-old male who evaluated here in the department in the past and has been here several times over the past several weeks for right leg pain. This all stems from an injury that occurred approximately 1 year ago. He has had multiple ultrasounds and evaluations and x-rays. No acute pathology has been found. Patient has been concerned about issue such as compartment syndrome however he continues to have no signs of that. He states that Toradol and lidocaine patches seemed to help his symptoms tremendously. He has an appointment with Orthopedics on Saturday of this week. He comes the emergency department today for a work note because he states that the Toradol makes him very sleepy. He has no new symptoms this morning. Related Data Home Medications Medication Instructions Recorded Confirmed losartan 50 mg PO DAILY 04/12/19 06/11/19 sertraline 100 mg PO DAILY 04/12/19 06/11/19 Previous Rx's Medication Instructions Recorded hydrocodone-acetaminophen [[place]] 1 tab PO Q6H PRN #10 tab 06/26/19 cyclobenzaprine 10 mg PO TID PRN #14 tab 05/02/20 ketorolac 10 mg PO TID PRN #15 tab 05/02/20 lidocaine 1 patch TOP DAILY PRN #15 each 05/02/20 ketorolac 10 mg PO TID PRN #14 tab 05/11/20 Allergies Allergy/AdvReac Type Severity Reaction Status Date / Time No Known Drug Allergies Allergy Verified 06/26/19 18:49 Review of Systems Constitutional Constitutional: Denies fever(s) Musculoskeletal Comments: Right leg pain Integumentary/Breasts Skin/Breast: Denies lesions and Denies rash Neurologic Neurologic: Denies behavioral changes Psychiatric Psychiatric: Denies behavioral changes Hematologic/Lymphatic Hematologic/Lymphatic: Denies easy bleeding and Denies easy bruising Patient History Medical History Depression (Acute) HTN (hypertension) (Acute) Strangulated umbilical hernia (Acute) Tinnitus (Acute) Surgical History H/O umbilical hernia repair (Acute) No pertinent past surgical history (Acute) Family History Mother Macular degeneration Father Heart valve disease Sister Malignant hypertension Social History household members: spouse Smoking Status: Never smoker Smoking Status: Never smoker alcohol intake frequency: holidays/special occasions only Substance Use Type: does not use Exam Initial Vital Signs Initial Vital Signs: Vital Signs Temperature 98 F 05/16/20 06:00 Pulse Rate 76 05/16/20 06:00 Respiratory Rate 20 05/16/20 06:00 Blood Pressure 158/91 H 05/16/20 06:00 Pulse Oximetry 96 05/16/20 06:00 Const General: cooperative and healthy appearing HENMT Head: normal to inspection and normocephalic Skin Lesions: no lesions Rashes: no rashes Neuro Sensory Exam: no sensory deficits noted Extrem General: capillary refill normal and No edema Psych Appearance: grossly normal and well kempt Course Orders Ordered: Discontinued Medications Ketorolac Tromethamine (Toradol) 30 mg IM NOW ONE Stop: 05/16/20 06:17 Vital Signs Vital signs: Vital Signs - 8 hr 05/16/20 06:00 Temperature 98 F Pulse Rate 76 Respiratory Rate 20 Blood Pressure 158/91 H Pulse Oximetry 96 Medical Decision Making MDM Narrative Medical decision making narrative: No new symptoms patient is here for a work note. Toradol lidocaine patches seem to improve his symptoms. He has a follow-up with Orthopedics hours scheduled this week. He was given Toradol per his request. He is given return precautions and follow-up instructions. Expressed understanding and agreement. Discharge Plan Departure Patient Disposition: Home Clinical Impression: Chronic leg pain Qualifiers: Laterality: right Qualified Code(s): M79.604 - Pain in right leg Activity Restrictions/Additional Instructions: Keep all of your scheduled medical appointments. Contact her primary provider for follow-up. Return to the emergency department for any new or worsening symptoms Prescriptions: No Action losartan 50 mg PO DAILY RF: 0 sertraline 100 mg PO DAILY RF: 0 hydrocodone-acetaminophen [[place]] 5-325 mg tablet 1 tab PO Q6H PRN (Reason: pain) Qty: 10 RF: 0 ketorolac 10 mg tablet 10 mg PO TID PRN (Reason: pain) Qty: 15 RF: 0 cyclobenzaprine 10 mg tablet 10 mg PO TID PRN (Reason: muscle spasm) Qty: 14 RF: 0 lidocaine 5 % adhesive patch,medicated 1 patch TOP DAILY PRN (Reason: pain) Qty: 15 RF: 0 ketorolac 10 mg tablet 10 mg PO TID PRN (Reason: pain) Qty: 14 RF: 0 Stand Alone Forms: Work Release Note
[2020-05-16] MEDS: KETOROLAC 60 MG/2 ML VIAL 30 MG IM (06:20)
== END 2020-05-16 06:27 | disposition home or self-care (01) ==
PROVIDERS: Emergency Provider Emergency Medicine
DX: M79.604 Pain in right leg (principal); Y99.0 Civilian activity done for income or pay
CPT/HCPCS: 96372; 99283; J1885

== ENCOUNTER → 2020-08-18 09:48 | Outpatient (CLI) | payer OTHER, SELFPAY ==
[2019-04-12 12:48] VITALS: BMI 39.4
== END ==
PROVIDERS: PCP Family Medicine; Referring Provider Preventive Medicine Occupational Medicine; Visit Provider Preventive Medicine Occupational Medicine
DX: S80.11XD Contusion of right lower leg, subsequent encounter (principal); Z53.9 Procedure and treatment not carried out, unspecified reason
CPT/HCPCS: 78315; A9503

== ENCOUNTER → 2020-08-23 07:56 | Outpatient (CLI) | payer OTHER, SELFPAY ==
[2019-04-12 12:48] VITALS: BMI 39.4
--- NOTE | 2020-08-23 | DI.NM.S_ITS ---
PROCEDURE: NM BONE 3 PHASE RADIOPHARMACEUTICAL: 21.5 mCi Tc-99m MDP IV. INDICATIONS: Contusion of right lower leg, subsequent encounter TECHNIQUE: Multiple bone scintigrams were obtained after intravenous injection of Tc-99m MDP, including flow, blood pool, and delayed images centered to the region of interest. COMPARISON: [facility], CR, XR TIBIA FIBULA RT 2V, 05/11/2020, 14:50. FINDINGS: A triple phase bone scan is obtained centered to the knees. On flow and blood pool images demonstrate symmetrical vascular activity is to lower extremities bilaterally. On delayed images, foci of increased activity are present around knees bilaterally, consistent with degenerative joint disease. No scintigraphic findings to suggest fracture or bone infection. IMPRESSION: 1. Degenerative joint disease in knees bilaterally, right greater than left. 2. Otherwise unremarkable bone scintigram. No findings to suggest acute fracture or bony infection. Dictated by: Stephy Perkins M.D. on 08/23/2020 at 15:35 Approved by: Stephy Perkins M.D. on 08/23/2020 at 17:16
== END ==
PROVIDERS: PCP Family Medicine; Referring Provider Family Medicine; Visit Provider Preventive Medicine Occupational Medicine
DX: S80.11XD Contusion of right lower leg, subsequent encounter (principal); M17.0 Bilateral primary osteoarthritis of knee; X58.XXXD Exposure to other specified factors, subsequent encounter
CPT/HCPCS: 78315; A9503

== ENCOUNTER → 2020-09-02 17:03 | Outpatient (CLI) | payer OTHER, MEDICAID, SELFPAY ==
[2020-08-24 15:27] VITALS: BMI 39.4
--- NOTE | 2020-09-02 17:04 | DI.RAD.S_ITS ---
PROCEDURE: XR LUMBAR SPINE 2-3V INDICATIONS: Severe back pain TECHNIQUE: 3 views of the lumbar spine were acquired. COMPARISON: None. FINDINGS: Bones: 5 [id number] vertebrae are present. There is normal bony alignment. Mild degenerative endplate changes are noted at L3-4 through L5-S1 levels. No vertebral body compression fractures. No suspicious bony lesions. Soft tissues: Overlying bowel gas pattern is normal. No suspicious soft tissue calcifications. IMPRESSION: Mild degenerative endplate changes in mid to lower lumbar spine. No compression fracture or spondylolisthesis. Dictated by: Ermias Agarwal M.D. on 09/02/2020 at 18:33 Approved by: Ermias Agarwal M.D. on 09/02/2020 at 18:34
== END ==
PROVIDERS: PCP Family Medicine; Referring Provider Family Medicine; Visit Provider Family Medicine
DX: M54.9 Dorsalgia, unspecified (principal); M47.816 Spondylosis without myelopathy or radiculopathy, lumbar region; M47.817 Spondylosis without myelopathy or radiculopathy, lumbosacral region
CPT/HCPCS: 72100

== ENCOUNTER → 2020-09-19 13:04 | Outpatient (CLI) | payer OTHER, MEDICAID, SELFPAY ==
[2020-08-24 15:27] VITALS: BMI 39.4
== END ==
PROVIDERS: PCP Family Medicine; Referring Provider Otolaryngology; Visit Provider Otolaryngology
DX: H90.5 Unspecified sensorineural hearing loss (principal); Z53.20 Procedure and treatment not carried out because of patient's decision for unspecified reasons; M54.10 Radiculopathy, site unspecified; M54.9 Dorsalgia, unspecified

== ENCOUNTER → 2020-10-05 08:24 | Outpatient (CLI) | payer OTHER, MEDICAID, SELFPAY ==
[2020-08-24 15:27] VITALS: BMI 39.4
[2020-10-05 09:31] LABS: Alanine Aminotransferase 55 IU/L (<50); Albumin 4.5 g/dL (3.5-5.0); Albumin Globulin Ratio 1.7 (1.0-2.8); Alkaline Phosphatase 50 U/L (38-126); Aspartate Aminotransferase 33 IU/L (17-59); BUN Creatinine Ratio 15.2 (6-22); Bilirubin Total 0.4 mg/dL (0.2-1.3); Blood Urea Nitrogen 10 mg/dL (9-20); Calcium 9.5 mg/dL (8.4-10.2); Carbon Dioxide 28 mmol/L (22-32); Chloride 103 mmol/L (98-107); Cholesterol 163 mg/dL (140-199); Estimated Glomerular Filt Rate > 60.0 mL/min (>60); Globulin 2.6 g/dL (1.7-4.1); Glucose 115 mg/dL (70-100); HDL Cholesterol 44 mg/dL (40-60); HEMOLYSIS < 15 (0-50); LDL Cholesterol Calculated 93 mg/dL (<100); Potassium 4.5 mmol/L (3.4-5.1); Sodium 137 mmol/L (137-145); Total Protein 7.1 g/dL (6.3-8.2); Triglycerides 129 mg/dL (35-150)
[2020-10-05 09:34] LABS: Creatinine Urine Random 66.5 mg/dL
[2020-10-05 09:39] LABS: Hemoglobin A1C% w Est Avg Glu 5.9 % (4.0-6.0)
[2020-10-05 09:42] LABS: Microalbumin Urine Random < 0.6 mg/dL (0-1.6)
== END ==
PROVIDERS: PCP Family Medicine; Referring Provider Family Medicine; Visit Provider Family Medicine
DX: I10 Essential (primary) hypertension (principal); Z13.1 Encounter for screening for diabetes mellitus
CPT/HCPCS: 36415; 80053; 80061; 82043; 82570; 83036

== ENCOUNTER → 2020-12-21 07:35 | Outpatient (CLI) | payer OTHER, MEDICAID, SELFPAY ==
[2020-08-24 15:27] VITALS: BMI 39.4
[2020-12-21] MEDS: COVID-19 VACC #1, MRNA(MOD) 100 MCG/0.5 ML VIAL IM (07:47)
== END ==
PROVIDERS: PCP Family Medicine; Visit Provider Internal Medicine
DX: Z23 Encounter for immunization (principal)
CPT/HCPCS: 0011A; 91301

== ENCOUNTER → 2021-01-18 07:30 | Outpatient (CLI) | payer OTHER, MEDICAID, SELFPAY ==
[2020-08-24 15:27] VITALS: BMI 39.4
[2021-01-18] MEDS: COVID-19 VACC #2, MRNA(MOD) 100 MCG/0.5 ML VIAL IM (07:42)
== END ==
PROVIDERS: PCP Family Medicine; Visit Provider Internal Medicine
DX: Z23 Encounter for immunization (principal)
CPT/HCPCS: 0012A; 91301

== ENCOUNTER → 2021-04-03 09:53 | Outpatient (CLI) | payer OTHER, MEDICAID, SELFPAY ==
[2020-08-24 15:27] VITALS: BMI 39.4
--- NOTE | 2021-04-03 09:54 | DI.RAD.S_ITS ---
PROCEDURE: XR HAND RT MIN 3V INDICATIONS: right hand pain TECHNIQUE: 3 views of the hand acquired. COMPARISON: None. FINDINGS: Bones: No acute fractures or dislocations. Carpal bones are normally aligned. No suspicious bony lesions. Mild degenerative changes are seen at the 1st carpometacarpal joint and the triscaphe joint. Scattered mild degenerative changes are seen in the interphalangeal joints throughout the hand. No focal osseous erosion. Soft tissues: No suspicious soft tissue calcifications. IMPRESSION: No acute osseous abnormality. Mild osteoarthrosis. If the symptoms persist, consider cross sectional imaging such as MRI or CT for further assessment. Dictated by: Mal Jj M.D. on 04/03/2021 at 12:01 Approved by: Mal Jj M.D. on 04/03/2021 at 12:02
== END ==
PROVIDERS: PCP Family Medicine; Referring Provider Family Medicine; Visit Provider Family Medicine
DX: M79.641 Pain in right hand (principal); M19.041 Primary osteoarthritis, right hand; M79.89 Other specified soft tissue disorders
CPT/HCPCS: 73130

== ENCOUNTER → 2021-11-14 09:02 | Outpatient (CLI) | payer OTHER, MEDICAID, SELFPAY ==
[2020-08-24 15:27] VITALS: BMI 39.4
[2021-11-14 10:52] LABS: Add Manual Diff / Slide Review NO; Basophils Absolute Auto 0 /uL (0-100); Basophils Percent Auto 0.7 % (0-2); Eosinophils Absolute Auto 100 /uL (0-450); Eosinophils Percent Auto 1.3 % (2-4); Hematocrit 43.2 % (41-53); Hemoglobin 14.7 g/dL (13.5-17.5); Lymphocytes Absolute Auto 1800 /uL (1100-4500); Lymphocytes Percent Auto 26.8 % (25-40); Mean Corpuscular Volume 85.3 fL (80-100); Monocytes Absolute Auto 400 /uL (0-900); Monocytes Percent Auto 6.7 % (3-14); Neutrophils Absolute Auto 4300 /uL (1500-7000); Neutrophils Percent Auto 64.5 % (50-75); Platelet Count 237 X10^3/uL (150-400); Red Blood Cell Count 5.06 X10^6/uL (4.5-5.9); Red Cell Distribution Width 13.8 % (11.6-14.8); White Blood Cell Count 6.7 X10^3/uL (4.5-11.0)
[2021-11-14 11:54] LABS: Alanine Aminotransferase 31 IU/L (<50); Albumin 4.5 g/dL (3.5-5.0); Albumin Globulin Ratio 1.6 (1.0-2.8); Alkaline Phosphatase 50 U/L (38-126); Aspartate Aminotransferase 24 IU/L (17-59); BUN Creatinine Ratio 18.3 (6-22); Bilirubin Total 0.5 mg/dL (0.2-1.3); Blood Urea Nitrogen 13 mg/dL (9-20); Carbon Dioxide 26 mmol/L (22-32); Chloride 108 mmol/L (98-107); Cholesterol 173 mg/dL (140-199); Estimated Glomerular Filt Rate > 60.0 mL/min (>60); Globulin 2.9 g/dL (1.7-4.1); Glucose 103 mg/dL (70-100); HDL Cholesterol 49 mg/dL (40-60); HEMOLYSIS < 15 (0-50); LDL Cholesterol Calculated 107 mg/dL (<100); Potassium 4.7 mmol/L (3.4-5.1); Sodium 141 mmol/L (137-145); Total Protein 7.4 g/dL (6.3-8.2); Triglycerides 85 mg/dL (35-150)
[2021-11-14 15:41] LABS: Creatinine Urine Random 237.2 mg/dL
[2021-11-14 15:48] LABS: Microalbumin Urine Random 1.9 mg/dL (0-1.6)
== END ==
PROVIDERS: PCP Family Medicine; Referring Provider Family Medicine; Visit Provider Family Medicine
DX: F32.9 Major depressive disorder, single episode, unspecified (principal); I10 Essential (primary) hypertension; M47.816 Spondylosis without myelopathy or radiculopathy, lumbar region; M48.061 Spinal stenosis, lumbar region without neurogenic claudication
CPT/HCPCS: 36415; 80053; 80061; 82043; 82570; 84443; 85025

== ENCOUNTER → 2021-12-04 11:31 | Outpatient (CLI) | payer OTHER, MEDICAID, SELFPAY ==
[2021-11-16 08:53] VITALS: BMI 39.4
[2021-12-05 09:34] LABS: Interpretation Negative (Negative)
== END ==
PROVIDERS: Family Provider Family Medicine; PCP Family Medicine; Referring Provider Family Medicine; Visit Provider Family Medicine
DX: K21.9 Gastro-esophageal reflux disease without esophagitis (principal)
CPT/HCPCS: 83013

== ENCOUNTER → 2022-02-15 10:49 | Outpatient (CLI) | payer OTHER, MEDICAID, SELFPAY ==
[2021-11-16 08:53] VITALS: BMI 39.4
--- NOTE | 2022-02-15 10:50 | DI.RAD.S_ITS ---
PROCEDURE: XR KNEE LT 3V INDICATIONS: chronic left knee pain TECHNIQUE: 3 views of the knee were acquired. COMPARISON: None. FINDINGS: Bones: No fractures or dislocations. Mild tricompartmental osteoarthritis is seen. No suspicious bony lesions. Soft tissues: No joint effusion. No suspicious soft tissue calcifications. IMPRESSION: Mild tricompartmental osteoarthritis. No fracture or dislocation. No significant joint effusion. Dictated by: Ermias Agarwal M.D. on 02/15/2022 at 12:25 Approved by: Ermias Agarwal M.D. on 02/15/2022 at 12:26
== END ==
PROVIDERS: Family Provider Family Medicine; PCP Family Medicine; Referring Provider Family Medicine; Visit Provider Family Medicine
DX: M17.12 Unilateral primary osteoarthritis, left knee (principal); M25.562 Pain in left knee; G89.29 Other chronic pain
CPT/HCPCS: 73562

== ENCOUNTER → 2022-03-12 06:54 | Outpatient (CLI) | payer OTHER, MEDICAID, SELFPAY ==
[2021-11-16 08:53] VITALS: BMI 39.4
--- NOTE | 2022-03-12 06:56 | DI.MRI.S_ITS ---
PROCEDURE: MR KNEE LT WO CON INDICATIONS: ongoing left knee pain TECHNIQUE: Noncontrast sagittal PD fast spin echo and T2 fast spin echo with fat saturation, sagittal 3-D FLASH with fat saturation; coronal T1 spin echo and PD fast spin echo with fat saturation, and axial PD fast spin echo with fat saturation through the knee. COMPARISON: [facility], CR, XR KNEE LT 3V, 02/15/2022, 11:01. FINDINGS: Image quality: Excellent. Menisci: There is vague linear high signal intensity within the medial meniscal body and posterior horn without definite articular surface extension, consistent with myxoid degeneration. Lateral meniscus is intact. Cruciate ligaments: The anterior and posterior cruciate ligaments appear intact. Medial structures: The medial collateral ligament appears intact. Visualized portions of the pes anserinus tendons appear normal. No abnormal bursal fluid. Lateral structures: The lateral collateral ligament, long and short heads of the biceps femoris tendon appear intact. The popliteus tendon appears normal. Iliotibial band appears normal. Anterior structures: The quadriceps and patellar tendons appear intact. Mild T2 signal elevation within the patellar tendon at the patellar insertion site. Patellar alignment is normal. No femoral trochlear dysplasia or ventral trochlear prominence. Mild edema in the superolateral aspect of the infrapatellar fat pad. Bones and cartilage: No bone marrow contusions or fractures. Articular cartilage fibrillation overlies the lateral patellar facet inferiorly. Mild articular cartilage loss diffusely overlies the weight-bearing aspects of the medial femoral condyle and medial tibial plateau. Joint space: There is physiologic knee joint fluid. No Coulter's cyst. Normal appearing synovial plicae are incidentally noted. IMPRESSION: 1. No internal derangement. 2. Patellar tendinitis. 3. Findings consistent with mild/early patellofemoral friction syndrome in the appropriate clinical setting. Dictated by: Blair Hardy M.D. on 03/12/2022 at 8:36 Approved by: Blair Hardy M.D. on 03/12/2022 at 8:50
== END ==
PROVIDERS: Family Provider Family Medicine; PCP Family Medicine; Referring Provider Family Medicine; Visit Provider Family Medicine
DX: M17.0 Bilateral primary osteoarthritis of knee (principal); M76.52 Patellar tendinitis, left knee; M25.562 Pain in left knee
CPT/HCPCS: 73721

== ENCOUNTER 2022-06-25 10:15 | Outpatient (RCR) | payer OTHER, MEDICAID, SELFPAY ==
[2021-11-16 08:53] VITALS: BMI 39.4
--- NOTE | 2021-11-29 11:51 | PT.OIE ---
Current Diagnoses Pain in right leg (11/29/21) Pain in left leg (11/29/21) Past Medical History (Last Reviewed 07/18/21 @ 09:40 by Andres Gordon MD) Bilateral primary osteoarthritis of knee Depression Fatigue due to sleep pattern disturbance H/O umbilical hernia repair History of snoring HTN (hypertension) Lumbar spondylosis Morbid obesity with body mass index (BMI) of 40.0 to 49.9 Neuroforaminal stenosis of lumbar spine No pertinent past surgical history Obstructive sleep apnea, adult Radicular low back pain Strangulated umbilical hernia Tinnitus Past Surgical History (Last Reviewed 07/18/21 @ 09:40 by Andres Gordon MD) H/O umbilical hernia repair No pertinent past surgical history Visit Care Team Role Provider Type Johan Vallejo MD Attending Provider Physician Family Provider Primary Care Provider Referring Provider Specialty: Family Practice Address: [address] [place] [address] Email: [email or web address] Physical Therapy Initial Evaluation PT-OP-A Visit Information Start: 11/29/21 11:01 Freq: Status: Active Protocol: Document 11/29/21 10:30 DCW (Rec: 11/29/21 11:14 DCW [id number]) Out-Patient Physical Therapy Visit Information Visit Information Visit Type Initial Evaluation Visit Start Time 10:30 Visit Stop Time 11:00 Total Visit Minutes 30 Visit Number 1 Number of GREASE MAN Visits 0 Evaluation Information Evaluation Date 11/29/21 PT-OP-B Current Condition Start: 11/29/21 11:01 Freq: Status: Active Protocol: Document 11/29/21 10:30 DCW (Rec: 11/29/21 11:14 DCW [id number]) Current Condition History of Current Condition Onset Date Three year history Current Complaints Bilateral leg pain, low back pain History of Current Condition Pt is a 56 year old male presenting with a three year history of pain, gait, and strength issues following a crushing injury to his leg three years ago at work. 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 Pt has experienced right LE pain and numbness since the injury. In the mean time, pt has begun to have fairly extreme low back and left leg pain due to compensatory movement patterns . Pt notes he has gained a lot of weight since his injury, which is making everything a lot harder. Pt only able to sit or stand for ~30 minutes at a time before experiencing too much pain he must change positions, and is really only able to lay prone, as this is the only position he can tolerate for an extended period of time. Pt notes he has fallen multiple times, because when he gets tired, his right leg starts to drag, but he can't feel it, so he will catch it on multiple obstacles. Treatment Goals Patient/Caregiver Goals Pt wants to be able to learn exercises and stretches he can perform in the pool, which allows him to exercise and be active without worrying about compression through his spine or falling due to leg pain PT-OP-C Subjective Start: 11/29/21 11:01 Freq: Status: Active Protocol: Document 11/29/21 10:30 DCW (Rec: 11/29/21 11:40 DCW [id number]) OP-PT Subjective Patient Comments Patient Comments I need to lose some weight, I just can't move around on land. Patient Reported Progress Worse Patient Questionnaires Lower Extremity Functional Scale LEFS Score 22/80 = 27.5% OP-PT Pain Assessment Pain Assessment Grid Paper Pain Assessment Grid Completed Yes: Multiple locations, see scan PT-OP-D Balance Start: 11/29/21 11:01 Freq: Status: Active Protocol: Document 11/29/21 10:30 DCW (Rec: 11/29/21 11:40 DCW [id number]) Balance Tests Tandem Tandem Standing 30+ bilaterally, but fatigued very quickly PT-OP-G Mobility & Gait Start: 11/29/21 11:01 Freq: Status: Active Protocol: Document 11/29/21 10:30 DCW (Rec: 11/29/21 11:28 DCW [id number]) OP Gait Assessment Gait Gait Assistance Required: Independent Assistive Devices Assistive Device None Gait Deviations General Gait Pattern Antalgic Comments Gait Comments Right antalgia with mild right hip vaulting PT-OP-H Neuro Start: 11/29/21 11:27 Freq: Status: Active Protocol: Document 11/29/21 10:30 DCW (Rec: 11/29/21 11:27 DCW [id number]) Sensation Evaluation Location Details Right Lower Leg Light Touch Absent Sharp/Dull Impaired Deep Pressure Impaired Protective Sensation Absent Proprioception (Position) Absent Kinesthesia (Movement) Impaired PT-OP-K Range of Motion Start: 11/29/21 11:01 Freq: Status: Active Protocol: Document 11/29/21 10:30 DCW (Rec: 11/29/21 11:40 DCW [id number]) Lumbar Spine Range of Motion Lumbar Spine Active Degrees Testing Position Standing Flexion 25 Extension 10 Lateral Flexion Left 59 Lateral Flexion Right 59 Comments Lateral flexion measured in cm from fingertips to floor PT-OP-M Strength Start: 11/29/21 11:01 Freq: Status: Active Protocol: Document 11/29/21 10:30 DCW (Rec: 11/29/21 11:40 DCW [id number]) Hip Strength Hip Manual Muscle Testing Right Flexion (L2) 4 Good Extension (S1) 4+ Good+ Abduction 4- Good- Adduction 4 Good External Rotation 4 Good Internal Rotation 4- Good- Left Flexion (L2) 4 Good Extension (S1) 4+ Good+ Abduction 4- Good- Adduction 4 Good External Rotation 4+ Good+ Internal Rotation 4+ Good+ Knee Strength Knee Manual Muscle Testing Right Flexion (S2) 4 Good Extension (L3) 4- Good- Left Flexion (S2) 4+ Good+ Extension (L3) 4 Good Ankle/Foot Strength Ankle and Foot Manual Muscle Testing Right Dorsiflexion (L4) 3 Fair Plantarflexion (S1) 3 Fair Left Dorsiflexion (L4) 4- Good- Plantarflexion (S1) 3 Fair PT-OP-T Assessment and Plan Start: 11/29/21 11:01 Freq: Status: Active Protocol: Document 11/29/21 10:30 DCW (Rec: 11/29/21 11:50 DCW [id number]) Physical Therapy Assessment Rehab Potential Rehabilitation Potential Good Evaluation Complexity Number of Personal Factors/Comorbidities 1-2 Number of Body Systems Impaired 4 or More Clinical Presentation at Evaluation Evolving Impairments Impairments Activity Tolerance,Balance, Functional Activities, Functional Mobility,Gait,Pain, ROM,Soft Tissue Mobility, Strength,Tone Other Concerns Fall Risk Yes - History of multiple falls Goals Two Impairment Pt unable to maintain a seated or standing position longer than 30 minutes Usp Goal (LTG) Pt to note ability to sit for >60 minutes in order to increase distance he is able to drive without a break LTG Duration 01/29/22 One Impairment Pt does not have an appropriate aquatic exercise program Short Term Goal (STG) Pt to be independent and compliant with an appropriate aquatic exercise program STG Duration 12/30/21 Assessment Summary Assessment Pt presents with low back and bilateral lower extremity pain , weakness, and limitations in gait and participation in usual activities. Pt's pain appears to result from a crush injury of his right leg, which in turn has created lumbar and left leg dysfunction. Pt displays difficulty with gait, with right antalgia and a right hip vault, as well as right leg numbness, which has led to multiple falls after he catches his foot on obstacles. Pt notes worsening symptoms over the last 1-2 years due to decreased activity secondary to both his injury and Covid shut-downs. Pt should benefit from aquatic therapy, which will allow him to participate in increased activity and strengthening, which increasing his worries of falling and allowing him to get decompression through his low back. Physical Therapy Plan Frequency and Duration Frequency of Treatment 1-2x/week Duration of Treatment Two months Plan of Care Start Date 11/29/21 Plan of Care End Date 01/29/22 Therapeutic Interventions Therapeutic Interventions Aquatic Therapy,Balance Training,Gait Training,Manual Therapy,Neuromuscular Re- education,Patient/Caregiver Education,Self-Care/Home Management,Therapeutic Activities,Therapeutic Exercises Next Visit Focus/Plan Next Note Type Treatment Note Next Visit Plan Implementation of aquatic treatment
--- NOTE | 2021-11-29 11:52 | PT.OPPOC ---
Physical, Occupational & Speech Therapy At [facility] Current Diagnoses Pain in right leg (11/29/21) Pain in left leg (11/29/21) Visit Care Team Role Provider Type Johan Vallejo MD Attending Provider Physician Family Provider Primary Care Provider Referring Provider Specialty: Family Practice Address: [address] [place] [address], [facility] Email: [email or web address] Plan Of Care PT-OP-T Assessment and Plan Start: 11/29/21 11:01 Freq: Status: Active Protocol: Document 11/29/21 10:30 DCW (Rec: 11/29/21 11:50 DCW [id number]) Physical Therapy Assessment Rehab Potential Rehabilitation Potential Good Evaluation Complexity Number of Personal Factors/Comorbidities 1-2 Number of Body Systems Impaired 4 or More Clinical Presentation at Evaluation Evolving Impairments Impairments Activity Tolerance,Balance, Functional Activities, Functional Mobility,Gait,Pain, ROM,Soft Tissue Mobility, Strength,Tone Other Concerns Fall Risk Yes - History of multiple falls Goals Two Impairment Pt unable to maintain a seated or standing position longer than 30 minutes Residential Goal (LTG) Pt to note ability to sit for >60 minutes in order to increase distance he is able to drive without a break LTG Duration 01/29/22 One Impairment Pt does not have an appropriate aquatic exercise program Short Term Goal (STG) Pt to be independent and compliant with an appropriate aquatic exercise program STG Duration 12/30/21 Assessment Summary Assessment Pt presents with low back and bilateral lower extremity pain , weakness, and limitations in gait and participation in usual activities. Pt's pain appears to result from a crush injury of his right leg, which in turn has created lumbar and left leg dysfunction. Pt displays difficulty with gait, with right antalgia and a right hip vault, as well as right leg numbness, which has led to multiple falls after he catches his foot on obstacles. Pt notes worsening symptoms over the last 1-2 years due to decreased activity secondary to both his injury and Covid shut-downs. Pt should benefit from aquatic therapy, which will allow him to participate in increased activity and strengthening, which increasing his worries of falling and allowing him to get decompression through his low back. Physical Therapy Plan Frequency and Duration Frequency of Treatment 1-2x/week Duration of Treatment Two months Plan of Care Start Date 11/29/21 Plan of Care End Date 01/29/22 Therapeutic Interventions Therapeutic Interventions Aquatic Therapy,Balance Training,Gait Training,Manual Therapy,Neuromuscular Re- education,Patient/Caregiver Education,Self-Care/Home Management,Therapeutic Activities,Therapeutic Exercises Next Visit Focus/Plan Next Note Type Treatment Note Next Visit Plan Implementation of aquatic treatment Plan of Care Dates Plan of Care Start Date 11/29/21 Plan of Care End Date 01/29/22 Electronically Signed by: Valdo Sahni, PT 11/29/21 [id number] Please Sign and Return: I have reviewed this Plan of Care and certify that the skilled therapy services above are required to meet the patient?s needs. Physician Signature Date Printed Name and Credentials Clinical Instructor Signature Printed Name and Credentials
--- NOTE | 2021-12-06 14:39 | PT.OTN ---
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 Pt has experienced right LE pain and numbness since the injury. In the mean time, pt has begun to have fairly extreme low back and left leg pain due to compensatory movement patterns . Pt notes he has gained a lot of weight since his injury, which is making everything a lot harder. Pt only able to sit or stand for ~30 minutes at a time before experiencing too much pain he must change positions, and is really only able to lay prone, as this is the only position he can tolerate for an extended period of time. Pt notes he has fallen multiple times, because when he gets tired, his right leg starts to drag, but he can't feel it, so he will catch it on multiple obstacles. Treatment Goals Patient/Caregiver Goals Pt wants to be able to learn exercises and stretches he can perform in the pool, which allows him to exercise and be active without worrying about compression through his spine or falling due to leg pain PT-OP-C Subjective Start: 11/29/21 11:01 Freq: Status: Active Protocol: Document 12/06/21 14:16 TACHO (Rec: 12/06/21 14:39 LJ [id number]) OP-PT Subjective Patient Comments Patient Comments Pt states he was sore after he and his exercised in the pool last week. He is concerned about his gait and would like to normalize it by exercising in the water. He felt very good when in the water being able to take weight off his back and legs. Patient Reported Progress Worse PT-OP-D Balance Start: 11/29/21 11:01 Freq: Status: Active Protocol: Document 11/29/21 10:30 DCW (Rec: 11/29/21 11:40 DCW [id number]) Balance Tests Tandem Tandem Standing 30+ bilaterally, but fatigued very quickly PT-OP-G Mobility & Gait Start: 11/29/21 11:01 Freq: Status: Active Protocol: Document 11/29/21 10:30 DCW (Rec: 11/29/21 11:28 DCW [id number]) OP Gait Assessment Gait Gait Assistance Required: Independent Assistive Devices Assistive Device None Gait Deviations General Gait Pattern Antalgic Comments Gait Comments Right antalgia with mild right hip vaulting PT-OP-H Neuro Start: 11/29/21 11:27 Freq: Status: Active Protocol: Document 11/29/21 10:30 DCW (Rec: 11/29/21 11:27 DCW [id number]) Sensation Evaluation Location Details Right Lower Leg Light Touch Absent Sharp/Dull Impaired Deep Pressure Impaired Protective Sensation Absent Proprioception (Position) Absent Kinesthesia (Movement) Impaired PT-OP-K Range of Motion Start: 11/29/21 11:01 Freq: Status: Active Protocol: Document 11/29/21 10:30 DCW (Rec: 11/29/21 11:40 DCW [id number]) Lumbar Spine Range of Motion Lumbar Spine Active Degrees Testing Position Standing Flexion 25 Extension 10 Lateral Flexion Left 59 Lateral Flexion Right 59 Comments Lateral flexion measured in cm from fingertips to floor PT-OP-M Strength Start: 11/29/21 11:01 Freq: Status: Active Protocol: Document 11/29/21 10:30 DCW (Rec: 11/29/21 11:40 DCW [id number]) Hip Strength Hip Manual Muscle Testing Right Flexion (L2) 4 Good Extension (S1) 4+ Good+ Abduction 4- Good- Adduction 4 Good External Rotation 4 Good Internal Rotation 4- Good- Left Flexion (L2) 4 Good Extension (S1) 4+ Good+ Abduction 4- Good- Adduction 4 Good External Rotation 4+ Good+ Internal Rotation 4+ Good+ Knee Strength Knee Manual Muscle Testing Right Flexion (S2) 4 Good Extension (L3) 4- Good- Left Flexion (S2) 4+ Good+ Extension (L3) 4 Good Ankle/Foot Strength Ankle and Foot Manual Muscle Testing Right Dorsiflexion (L4) 3 Fair Plantarflexion (S1) 3 Fair Left Dorsiflexion (L4) 4- Good- Plantarflexion (S1) 3 Fair PT-OP-S Aquatic Treatment Start: 11/29/21 11:26 Freq: Status: Active Protocol: Document 12/06/21 14:16 TACHO (Rec: 12/06/21 14:39 TACHO [id number]) Aquatics Treatment Pool Entry/Exit Pool Entry/Exit Method Stairs Assistance Independent Water Walking Heel Walk Water Level Chest Level Level of Assistance Verbal Cues Comments cues to avoid stomping Marching Water Level Chest Level Level of Assistance Verbal Cues Comments pt states the exercise feels very good on his back Sideways Water Level Chest Level Backwards Water Level Chest Level Level of Assistance Verbal Cues Comments cues for neutral pelvis and coordination Forwards Water Level Chest Level Level of Assistance Verbal Cues Comments cues for neutral pelvis and coordination Lower Extremity Exercises 4 way hip Details hh on wall Body Position Standing Water Level Chest Level Reps/Duration 10 B each Comments cues for neutral pelvis and upright positioning Lower Extremity Stretches hamstrings Details at wall Body Position Sitting Equipment sm noodle under heel Reps/Duration 2 x 30 sec ea B gastroc, soleus Details at wall Body Position Standing Reps/Duration 2 x 30 sec ea B quads, hip flexors Details at wall Body Position Standing Reps/Duration 2 x 30 sec ea B DKTC/SKTC Details at wall Body Position Standing Reps/Duration 2 x 45 sec each piriformis Details at wall Body Position Sitting Reps/Duration 2 x 30 sec B Spinal Exercises torso rotation Details at wall Body Position Sitting Equipment sm smiles Reps/Duration 10 Comments cues for abdominal activation [place] Activities [place] Activities Bicycle,[place] Other Activities walking Equipment noodle Duration 10 min Comments pt will need more floatation with second noodle or blue float PT-OP-T Assessment and Plan Start: 11/29/21 11:01 Freq: Status: Active Protocol: Document 12/06/21 14:16 TACHO (Rec: 12/06/21 14:39 TACHO [id number]) Physical Therapy Assessment Rehab Potential Rehabilitation Potential Good Evaluation Complexity Number of Personal Factors/Comorbidities 1-2 Number of Body Systems Impaired 4 or More Clinical Presentation at Evaluation Evolving Impairments Impairments Activity Tolerance,Balance, Functional Activities, Functional Mobility,Gait,Pain, ROM,Soft Tissue Mobility, Strength,Tone Other Concerns Fall Risk Yes - History of multiple falls Goals Two Impairment Pt unable to maintain a seated or standing position longer than 30 minutes Mcfp Goal (LTG) Pt to note ability to sit for >60 minutes in order to increase distance he is able to drive without a break LTG Duration 01/29/22 One Impairment Pt does not have an appropriate aquatic exercise program Short Term Goal (STG) Pt to be independent and compliant with an appropriate aquatic exercise program STG Duration 12/30/21 Assessment Summary Assessment Pt had no complaints of pain with exercises. He stated deep water and stretching felt very good and he was able to stretch effectively unlike on land. Pt will need more than a noodle for floatation in deep. He needed frequent reminders to maintain abdominal engagement and neutral pelvis. He will benefit from AT to improve balance, strength, gait mechanics, and reduce fall risk. Physical Therapy Plan Frequency and Duration Frequency of Treatment 1-2x/week Duration of Treatment Two months Plan of Care Start Date 11/29/21 Plan of Care End Date 01/29/22 Therapeutic Interventions Therapeutic Interventions Aquatic Therapy,Balance Training,Gait Training,Manual Therapy,Neuromuscular Re- education,Patient/Caregiver Education,Self-Care/Home Management,Therapeutic Activities,Therapeutic Exercises Next Visit Focus/Plan Next Note Type Treatment Note Next Visit Plan Continue with prescribed exercises slowly increasing effort. Add core stabilization and strengthening gradually to improve back pain and gait function
--- NOTE | 2021-12-15 15:30 | PT.OTN ---
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 Pt has experienced right LE pain and numbness since the injury. In the mean time, pt has begun to have fairly extreme low back and left leg pain due to compensatory movement patterns . Pt notes he has gained a lot of weight since his injury, which is making everything a lot harder. Pt only able to sit or stand for ~30 minutes at a time before experiencing too much pain he must change positions, and is really only able to lay prone, as this is the only position he can tolerate for an extended period of time. Pt notes he has fallen multiple times, because when he gets tired, his right leg starts to drag, but he can't feel it, so he will catch it on multiple obstacles. Treatment Goals Patient/Caregiver Goals Pt wants to be able to learn exercises and stretches he can perform in the pool, which allows him to exercise and be active without worrying about compression through his spine or falling due to leg pain PT-OP-C Subjective Start: 11/29/21 11:01 Freq: Status: Active Protocol: Document 12/15/21 15:24 SAK (Rec: 12/15/21 15:30 SAK [id number]) OP-PT Subjective Patient Comments Patient Comments States he really likes being in the water and being able to move more easily and unweight his spine. States his spine likes extension more than flexion. PT-OP-D Balance Start: 11/29/21 11:01 Freq: Status: Active Protocol: Document 11/29/21 10:30 DCW (Rec: 11/29/21 11:40 DCW [id number]) Balance Tests Tandem Tandem Standing 30+ bilaterally, but fatigued very quickly PT-OP-G Mobility & Gait Start: 11/29/21 11:01 Freq: Status: Active Protocol: Document 11/29/21 10:30 DCW (Rec: 11/29/21 11:28 DCW [id number]) OP Gait Assessment Gait Gait Assistance Required: Independent Assistive Devices Assistive Device None Gait Deviations General Gait Pattern Antalgic Comments Gait Comments Right antalgia with mild right hip vaulting PT-OP-H Neuro Start: 11/29/21 11:27 Freq: Status: Active Protocol: Document 11/29/21 10:30 DCW (Rec: 11/29/21 11:27 DCW [id number]) Sensation Evaluation Location Details Right Lower Leg Light Touch Absent Sharp/Dull Impaired Deep Pressure Impaired Protective Sensation Absent Proprioception (Position) Absent Kinesthesia (Movement) Impaired PT-OP-K Range of Motion Start: 11/29/21 11:01 Freq: Status: Active Protocol: Document 11/29/21 10:30 DCW (Rec: 11/29/21 11:40 DCW [id number]) Lumbar Spine Range of Motion Lumbar Spine Active Degrees Testing Position Standing Flexion 25 Extension 10 Lateral Flexion Left 59 Lateral Flexion Right 59 Comments Lateral flexion measured in cm from fingertips to floor PT-OP-M Strength Start: 11/29/21 11:01 Freq: Status: Active Protocol: Document 11/29/21 10:30 DCW (Rec: 11/29/21 11:40 DCW [id number]) Hip Strength Hip Manual Muscle Testing Right Flexion (L2) 4 Good Extension (S1) 4+ Good+ Abduction 4- Good- Adduction 4 Good External Rotation 4 Good Internal Rotation 4- Good- Left Flexion (L2) 4 Good Extension (S1) 4+ Good+ Abduction 4- Good- Adduction 4 Good External Rotation 4+ Good+ Internal Rotation 4+ Good+ Knee Strength Knee Manual Muscle Testing Right Flexion (S2) 4 Good Extension (L3) 4- Good- Left Flexion (S2) 4+ Good+ Extension (L3) 4 Good Ankle/Foot Strength Ankle and Foot Manual Muscle Testing Right Dorsiflexion (L4) 3 Fair Plantarflexion (S1) 3 Fair Left Dorsiflexion (L4) 4- Good- Plantarflexion (S1) 3 Fair PT-OP-S Aquatic Treatment Start: 11/29/21 11:26 Freq: Status: Active Protocol: Document 12/15/21 15:24 [facility] (Rec: 12/15/21 15:30 [facility] [id number]) Aquatics Treatment Pool Entry/Exit Pool Entry/Exit Method Stairs Assistance Independent Water Walking Marching Water Level Chest Level Level of Assistance Verbal Cues Comments pt states the exercise feels very good on his back Sideways Water Level Chest Level Backwards Water Level Chest Level Level of Assistance Verbal Cues Comments cues for neutral pelvis and coordination Forwards Water Level Chest Level Level of Assistance Verbal Cues Comments cues for neutral pelvis and coordination Lower Extremity Stretches hamstrings Details at wall Body Position Sitting Equipment sm noodle under heel Reps/Duration 2 x 30 sec ea B gastroc, soleus Details at wall Body Position Standing Reps/Duration 2 x 30 sec ea B quads, hip flexors Details at wall Body Position Standing Reps/Duration 2 x 30 sec ea B DKTC/SKTC Details at wall Body Position Standing Reps/Duration 2 x 45 sec each piriformis Details at wall Body Position Sitting Reps/Duration 2 x 30 sec B Spinal Exercises deep water hang Body Position Standing Water Level [place] Equipment [place] Float Comments reported good stretch, no increase in symptoms trunk extension Body Position Standing Water Level [place] Equipment [place] Float Reps/Duration 30 x 2 Comments pool edge [place] Activities [place] Activities Bicycle,[place] Other Activities walking Equipment [place] float Duration 10 min Comments patient reports wanting to try 2 noodles next session PT-OP-T Assessment and Plan Start: 11/29/21 11:01 Freq: Status: Active Protocol: Document 12/15/21 15:24 [facility] (Rec: 12/15/21 15:30 [facility] [id number]) Physical Therapy Assessment Goals Two Impairment Pt unable to maintain a seated or standing position longer than 30 minutes Volunteer Recruiter Goal (LTG) Pt to note ability to sit for >60 minutes in order to increase distance he is able to drive without a break LTG Duration 01/29/22 One Impairment Pt does not have an appropriate aquatic exercise program Short Term Goal (STG) Pt to be independent and compliant with an appropriate aquatic exercise program STG Duration 12/30/21 Assessment Summary Assessment Patient reported LE pain when entered pool, relieved with deep water hang with weight. Cues for postural alignment and core stabilization with all exercises. Responds well to spinal extension. Good benefit from aquatiac PT for this patient. Physical Therapy Plan Frequency and Duration Frequency of Treatment 2x/Week Duration of Treatment Two months Plan of Care Start Date 11/29/21 Plan of Care End Date 01/29/22 Therapeutic Interventions Therapeutic Interventions Aquatic Therapy,Balance Training,Gait Training,Manual Therapy,Neuromuscular Re- education,Patient/Caregiver Education,Self-Care/Home Management,Therapeutic Activities,Therapeutic Exercises Next Visit Focus/Plan Next Note Type Treatment Note Next Visit Plan Core stabilization seated at wall shallow, and deep water stab. assess response to deep water hang with weight.
--- NOTE | 2022-01-03 17:12 | PT.OTN ---
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 Pt has experienced right LE pain and numbness since the injury. In the mean time, pt has begun to have fairly extreme low back and left leg pain due to compensatory movement patterns . Pt notes he has gained a lot of weight since his injury, which is making everything a lot harder. Pt only able to sit or stand for ~30 minutes at a time before experiencing too much pain he must change positions, and is really only able to lay prone, as this is the only position he can tolerate for an extended period of time. Pt notes he has fallen multiple times, because when he gets tired, his right leg starts to drag, but he can't feel it, so he will catch it on multiple obstacles. Treatment Goals Patient/Caregiver Goals Pt wants to be able to learn exercises and stretches he can perform in the pool, which allows him to exercise and be active without worrying about compression through his spine or falling due to leg pain PT-OP-C Subjective Start: 11/29/21 11:01 Freq: Status: Active Protocol: Document 01/03/22 17:04 SAK (Rec: 01/03/22 17:11 SAK [id number]) OP-PT Subjective Patient Comments Patient Comments Patient reports increase in pain after doing yardwork yesterday; pain in low back and LE's. Glad to have aquatic therapy today. PT-OP-D Balance Start: 11/29/21 11:01 Freq: Status: Active Protocol: Document 11/29/21 10:30 DCW (Rec: 11/29/21 11:40 DCW [id number]) Balance Tests Tandem Tandem Standing 30+ bilaterally, but fatigued very quickly PT-OP-G Mobility & Gait Start: 11/29/21 11:01 Freq: Status: Active Protocol: Document 11/29/21 10:30 DCW (Rec: 11/29/21 11:28 DCW [id number]) OP Gait Assessment Gait Gait Assistance Required: Independent Assistive Devices Assistive Device None Gait Deviations General Gait Pattern Antalgic Comments Gait Comments Right antalgia with mild right hip vaulting PT-OP-H Neuro Start: 11/29/21 11:27 Freq: Status: Active Protocol: Document 11/29/21 10:30 DCW (Rec: 11/29/21 11:27 DCW [id number]) Sensation Evaluation Location Details Right Lower Leg Light Touch Absent Sharp/Dull Impaired Deep Pressure Impaired Protective Sensation Absent Proprioception (Position) Absent Kinesthesia (Movement) Impaired PT-OP-K Range of Motion Start: 11/29/21 11:01 Freq: Status: Active Protocol: Document 11/29/21 10:30 DCW (Rec: 11/29/21 11:40 DCW [id number]) Lumbar Spine Range of Motion Lumbar Spine Active Degrees Testing Position Standing Flexion 25 Extension 10 Lateral Flexion Left 59 Lateral Flexion Right 59 Comments Lateral flexion measured in cm from fingertips to floor PT-OP-M Strength Start: 11/29/21 11:01 Freq: Status: Active Protocol: Document 11/29/21 10:30 DCW (Rec: 11/29/21 11:40 DCW [id number]) Hip Strength Hip Manual Muscle Testing Right Flexion (L2) 4 Good Extension (S1) 4+ Good+ Abduction 4- Good- Adduction 4 Good External Rotation 4 Good Internal Rotation 4- Good- Left Flexion (L2) 4 Good Extension (S1) 4+ Good+ Abduction 4- Good- Adduction 4 Good External Rotation 4+ Good+ Internal Rotation 4+ Good+ Knee Strength Knee Manual Muscle Testing Right Flexion (S2) 4 Good Extension (L3) 4- Good- Left Flexion (S2) 4+ Good+ Extension (L3) 4 Good Ankle/Foot Strength Ankle and Foot Manual Muscle Testing Right Dorsiflexion (L4) 3 Fair Plantarflexion (S1) 3 Fair Left Dorsiflexion (L4) 4- Good- Plantarflexion (S1) 3 Fair PT-OP-S Aquatic Treatment Start: 11/29/21 11:26 Freq: Status: Active Protocol: Document 01/03/22 17:04 [facility] (Rec: 01/03/22 17:11 [facility] [id number]) Aquatics Treatment Pool Entry/Exit Pool Entry/Exit Method Stairs Assistance Independent Water Walking Marching Water Level Chest Level Level of Assistance Verbal Cues Comments pt states the exercise feels very good on his back Sideways Water Level Chest Level Backwards Water Level Chest Level Level of Assistance Verbal Cues Comments cues for neutral pelvis and coordination Forwards Water Level Chest Level Level of Assistance Verbal Cues Comments cues for neutral pelvis and coordination Spinal Exercises deep water hang Body Position Standing Water Level [place] Equipment [place] Float, neck float, 5# celena LE's Comments reported good stretch, no increase in symptoms [place] Activities [place] Activities Bicycle,[place] Other Activities walking Equipment 2 large noodles Duration 10 min Comments patient reports wanting to try 2 noodles next session PT-OP-T Assessment and Plan Start: 11/29/21 11:01 Freq: Status: Active Protocol: Document 01/03/22 17:04 [facility] (Rec: 01/03/22 17:11 [facility] [id number]) Physical Therapy Assessment Evaluation Complexity Number of Personal Factors/Comorbidities 1-2 Number of Body Systems Impaired 4 or More Clinical Presentation at Evaluation Evolving Impairments Impairments Activity Tolerance,Balance, Functional Activities, Functional Mobility,Gait,Pain, ROM,Soft Tissue Mobility, Strength,Tone Goals Two Impairment Pt unable to maintain a seated or standing position longer than 30 minutes Custodial Goal (LTG) Pt to note ability to sit for >60 minutes in order to increase distance he is able to drive without a break LTG Duration 01/29/22 One Impairment Pt does not have an appropriate aquatic exercise program Short Term Goal (STG) Pt to be independent and compliant with an appropriate aquatic exercise program STG Duration 12/30/21 Assessment Summary Assessment Patient experiences good relief of pain with aquatic therapy, low tolerance for activity on land. Needs continued progression of ex. Physical Therapy Plan Frequency and Duration Frequency of Treatment 2x/Week Duration of Treatment Two months Plan of Care Start Date 11/29/21 Plan of Care End Date 01/29/22 Therapeutic Interventions Therapeutic Interventions Aquatic Therapy,Balance Training,Gait Training,Manual Therapy,Neuromuscular Re- education,Patient/Caregiver Education,Self-Care/Home Management,Therapeutic Activities,Therapeutic Exercises Next Visit Focus/Plan Next Note Type Treatment Note Next Visit Plan Continue to progress aquatic exercises for strengthening, core stabilization and flexibility. Deep water hang/ traction. Consider increased weight depending on tolerance, relief experienced.
--- NOTE | 2022-01-17 14:43 | PT.OTN ---
Current Diagnoses Pain in right leg (01/17/22) Pain in left leg (01/17/22) Physical Therapy Treatment Note PT-OP-A Visit Information Start: 11/29/21 11:01 Freq: Status: Active Protocol: Document 01/17/22 14:35 SAK (Rec: 01/17/22 14:43 SAK [id number]) Out-Patient Physical Therapy Visit Information Visit Information Visit Type Aquatic Treatment Note Visit Start Time 11:45 Visit Stop Time 12:30 Total Visit Minutes 45 Visit Number 5 Number of SEARCH LEAD Visits 0 PT-OP-B Current Condition Start: 11/29/21 11:01 Freq: Status: Active Protocol: Document 11/29/21 10:30 DCW (Rec: 11/29/21 11:14 DCW [id number]) Current Condition History of Current Condition Onset Date Three year history Current Complaints Bilateral leg pain, low back pain History of Current Condition Pt is a 56 year old male presenting with a three year history of pain, gait, and strength issues following a crushing injury to his leg three years ago at work. 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 Pt has experienced right LE pain and numbness since the injury. In the mean time, pt has begun to have fairly extreme low back and left leg pain due to compensatory movement patterns . Pt notes he has gained a lot of weight since his injury, which is making everything a lot harder. Pt only able to sit or stand for ~30 minutes at a time before experiencing too much pain he must change positions, and is really only able to lay prone, as this is the only position he can tolerate for an extended period of time. Pt notes he has fallen multiple times, because when he gets tired, his right leg starts to drag, but he can't feel it, so he will catch it on multiple obstacles. Treatment Goals Patient/Caregiver Goals Pt wants to be able to learn exercises and stretches he can perform in the pool, which allows him to exercise and be active without worrying about compression through his spine or falling due to leg pain PT-OP-C Subjective Start: 11/29/21 11:01 Freq: Status: Active Protocol: Document 01/17/22 14:35 SAK (Rec: 01/17/22 14:43 [facility] [id number]) OP-PT Subjective Patient Comments Patient Comments Has been coming to the pool daily and initially felt good, now feels like he is overdoing it. Feeling crunching in his lateral left knee largely when at rest sitting or in bed, right knee hurting when he stands on it. Low back feels better after being in the pool. PT-OP-D Balance Start: 11/29/21 11:01 Freq: Status: Active Protocol: Document 11/29/21 10:30 DCW (Rec: 11/29/21 11:40 DCW [id number]) Balance Tests Tandem Tandem Standing 30+ bilaterally, but fatigued very quickly PT-OP-G Mobility & Gait Start: 11/29/21 11:01 Freq: Status: Active Protocol: Document 11/29/21 10:30 DCW (Rec: 11/29/21 11:28 DCW [id number]) OP Gait Assessment Gait Gait Assistance Required: Independent Assistive Devices Assistive Device None Gait Deviations General Gait Pattern Antalgic Comments Gait Comments Right antalgia with mild right hip vaulting PT-OP-H Neuro Start: 11/29/21 11:27 Freq: Status: Active Protocol: Document 11/29/21 10:30 DCW (Rec: 11/29/21 11:27 DCW [id number]) Sensation Evaluation Location Details Right Lower Leg Light Touch Absent Sharp/Dull Impaired Deep Pressure Impaired Protective Sensation Absent Proprioception (Position) Absent Kinesthesia (Movement) Impaired PT-OP-K Range of Motion Start: 11/29/21 11:01 Freq: Status: Active Protocol: Document 11/29/21 10:30 DCW (Rec: 11/29/21 11:40 DCW [id number]) Lumbar Spine Range of Motion Lumbar Spine Active Degrees Testing Position Standing Flexion 25 Extension 10 Lateral Flexion Left 59 Lateral Flexion Right 59 Comments Lateral flexion measured in cm from fingertips to floor PT-OP-M Strength Start: 11/29/21 11:01 Freq: Status: Active Protocol: Document 11/29/21 10:30 DCW (Rec: 11/29/21 11:40 DCW [id number]) Hip Strength Hip Manual Muscle Testing Right Flexion (L2) 4 Good Extension (S1) 4+ Good+ Abduction 4- Good- Adduction 4 Good External Rotation 4 Good Internal Rotation 4- Good- Left Flexion (L2) 4 Good Extension (S1) 4+ Good+ Abduction 4- Good- Adduction 4 Good External Rotation 4+ Good+ Internal Rotation 4+ Good+ Knee Strength Knee Manual Muscle Testing Right Flexion (S2) 4 Good Extension (L3) 4- Good- Left Flexion (S2) 4+ Good+ Extension (L3) 4 Good Ankle/Foot Strength Ankle and Foot Manual Muscle Testing Right Dorsiflexion (L4) 3 Fair Plantarflexion (S1) 3 Fair Left Dorsiflexion (L4) 4- Good- Plantarflexion (S1) 3 Fair PT-OP-S Aquatic Treatment Start: 11/29/21 11:26 Freq: Status: Active Protocol: Document 01/17/22 14:35 [facility] (Rec: 01/17/22 14:43 [facility] [id number]) Aquatics Treatment Pool Entry/Exit Pool Entry/Exit Method Stairs Assistance Independent Water Walking Marching Water Level Chest Level Level of Assistance Verbal Cues Comments pt states the exercise feels very good on his back Backwards Water Level Chest Level Level of Assistance Verbal Cues Comments cues for neutral pelvis and coordination Forwards Water Level Chest Level Level of Assistance Verbal Cues Comments cues for neutral pelvis and coordination Lower Extremity Exercises 4 way hip Details hh on wall Body Position Standing Water Level Chest Level Reps/Duration 10 B each Comments cues for neutral pelvis and upright positioning Lower Extremity Stretches hamstrings Details at wall Body Position Sitting Equipment sm noodle under heel Reps/Duration 2 x 30 sec ea B quads, hip flexors Details at wall Body Position Standing Reps/Duration 2 x 30 sec ea B DKTC/SKTC Details at wall Body Position Standing Reps/Duration 2 x 45 sec each piriformis Details at wall Body Position Sitting Reps/Duration 2 x 30 sec B Spinal Exercises trunk extension Body Position Standing Water Level Fallon Equipment noodles (2) Reps/Duration 30 x 2 Comments pool edge Fallon Activities Fallon Activities Cross Country,Hip Abduction/ Adduction Equipment 2 large noodles Duration 10 min Comments alternating 2 min intervals PT-OP-T Assessment and Plan Start: 11/29/21 11:01 Freq: Status: Active Protocol: Document 01/17/22 14:35 [facility] (Rec: 01/17/22 14:43 [facility] [id number]) Physical Therapy Assessment Goals Two Impairment Pt unable to maintain a seated or standing position longer than 30 minutes Group Home Goal (LTG) Pt to note ability to sit for >60 minutes in order to increase distance he is able to drive without a break LTG Duration 01/29/22 One Impairment Pt does not have an appropriate aquatic exercise program Short Term Goal (STG) Pt to be independent and compliant with an appropriate aquatic exercise program STG Duration 12/30/21 Assessment Summary Assessment Limited number of PT appointments due to PT schedule, patient has been coming on own, appears to be overdoing. Worked on increased long lever exercises with minimal knee flex in deep water, resumed trunk extension deep water as hadn't been doing. Patient going to schedule appointment with physician due to recent increase in pain but feel he has been overdoing. Recommended trial ice or heat after aquatic exercise. Advised to try every other day , continue with more long lever ex. Physical Therapy Plan Frequency and Duration Frequency of Treatment 2x/Week Duration of Treatment Two months Plan of Care Start Date 11/29/21 Plan of Care End Date 01/29/22 Therapeutic Interventions Therapeutic Interventions Aquatic Therapy,Balance Training,Gait Training,Manual Therapy,Neuromuscular Re- education,Patient/Caregiver Education,Self-Care/Home Management,Therapeutic Activities,Therapeutic Exercises Next Visit Focus/Plan Next Note Type Treatment Note Next Visit Plan ASsess response to modification of therapeutic aquatic exercises, decreased frequency, addition of ice or heat.
--- NOTE | 2022-01-24 15:48 | PT.OTN ---
Current Diagnoses Pain in right leg (01/24/22) Pain in left leg (01/24/22) Physical Therapy Treatment Note PT-OP-A Visit Information Start: 11/29/21 11:01 Freq: Status: Active Protocol: Document 01/24/22 15:41 LJ (Rec: 01/24/22 15:48 LJ [id number]) Out-Patient Physical Therapy Visit Information Visit Information Visit Type Aquatic Treatment Note Visit Start Time 12:30 Visit Stop Time 01:15 Total Visit Minutes 45 Visit Number 6 Number of QA TECH Visits 1 PT-OP-B Current Condition Start: 11/29/21 11:01 Freq: Status: Active Protocol: Document 11/29/21 10:30 DCW (Rec: 11/29/21 11:14 DCW [id number]) Current Condition History of Current Condition Onset Date Three year history Current Complaints Bilateral leg pain, low back pain History of Current Condition Pt is a 56 year old male presenting with a three year history of pain, gait, and strength issues following a crushing injury to his leg three years ago at work. 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 Pt has experienced right LE pain and numbness since the injury. In the mean time, pt has begun to have fairly extreme low back and left leg pain due to compensatory movement patterns . Pt notes he has gained a lot of weight since his injury, which is making everything a lot harder. Pt only able to sit or stand for ~30 minutes at a time before experiencing too much pain he must change positions, and is really only able to lay prone, as this is the only position he can tolerate for an extended period of time. Pt notes he has fallen multiple times, because when he gets tired, his right leg starts to drag, but he can't feel it, so he will catch it on multiple obstacles. Treatment Goals Patient/Caregiver Goals Pt wants to be able to learn exercises and stretches he can perform in the pool, which allows him to exercise and be active without worrying about compression through his spine or falling due to leg pain PT-OP-C Subjective Start: 11/29/21 11:01 Freq: Status: Active Protocol: Document 01/24/22 15:41 TACHO (Rec: 01/24/22 15:48 LJ [id number]) OP-PT Subjective Patient Comments Patient Comments Has been coming to the pool daily and initially felt good, now feels like he is overdoing it causing his left knee pain. States his doctor told him he most likely had bursitis in LLE lateral knee. He states the pain is not localized and is painful along the vastus lateralis tendon to mid thigh, Feeling crunching in his lateral left knee largely when at rest sitting or in bed, right knee hurting when he stands on it. Low back feels better after being in the pool. PT-OP-D Balance Start: 11/29/21 11:01 Freq: Status: Active Protocol: Document 11/29/21 10:30 DCW (Rec: 11/29/21 11:40 DCW [id number]) Balance Tests Tandem Tandem Standing 30+ bilaterally, but fatigued very quickly PT-OP-G Mobility & Gait Start: 11/29/21 11:01 Freq: Status: Active Protocol: Document 11/29/21 10:30 DCW (Rec: 11/29/21 11:28 DCW [id number]) OP Gait Assessment Gait Gait Assistance Required: Independent Assistive Devices Assistive Device None Gait Deviations General Gait Pattern Antalgic Comments Gait Comments Right antalgia with mild right hip vaulting PT-OP-H Neuro Start: 11/29/21 11:27 Freq: Status: Active Protocol: Document 11/29/21 10:30 DCW (Rec: 11/29/21 11:27 DCW [id number]) Sensation Evaluation Location Details Right Lower Leg Light Touch Absent Sharp/Dull Impaired Deep Pressure Impaired Protective Sensation Absent Proprioception (Position) Absent Kinesthesia (Movement) Impaired PT-OP-K Range of Motion Start: 11/29/21 11:01 Freq: Status: Active Protocol: Document 11/29/21 10:30 DCW (Rec: 11/29/21 11:40 DCW [id number]) Lumbar Spine Range of Motion Lumbar Spine Active Degrees Testing Position Standing Flexion 25 Extension 10 Lateral Flexion Left 59 Lateral Flexion Right 59 Comments Lateral flexion measured in cm from fingertips to floor PT-OP-M Strength Start: 11/29/21 11:01 Freq: Status: Active Protocol: Document 11/29/21 10:30 DCW (Rec: 11/29/21 11:40 DCW [id number]) Hip Strength Hip Manual Muscle Testing Right Flexion (L2) 4 Good Extension (S1) 4+ Good+ Abduction 4- Good- Adduction 4 Good External Rotation 4 Good Internal Rotation 4- Good- Left Flexion (L2) 4 Good Extension (S1) 4+ Good+ Abduction 4- Good- Adduction 4 Good External Rotation 4+ Good+ Internal Rotation 4+ Good+ Knee Strength Knee Manual Muscle Testing Right Flexion (S2) 4 Good Extension (L3) 4- Good- Left Flexion (S2) 4+ Good+ Extension (L3) 4 Good Ankle/Foot Strength Ankle and Foot Manual Muscle Testing Right Dorsiflexion (L4) 3 Fair Plantarflexion (S1) 3 Fair Left Dorsiflexion (L4) 4- Good- Plantarflexion (S1) 3 Fair PT-OP-S Aquatic Treatment Start: 11/29/21 11:26 Freq: Status: Active Protocol: Document 01/24/22 15:41 TACHO (Rec: 01/24/22 15:48 [id number]) Aquatics Treatment Pool Entry/Exit Pool Entry/Exit Method Stairs Assistance Independent Water Walking Marching Water Level Chest Level Level of Assistance Verbal Cues Comments pt states the exercise feels very good on his back Sideways Water Level Chest Level Backwards Water Level Chest Level Level of Assistance Verbal Cues Comments cues for neutral pelvis and coordination Forwards Water Level Chest Level Level of Assistance Verbal Cues Comments cues for neutral pelvis and coordination Lower Extremity Stretches hamstrings Details at wall Body Position Sitting Equipment sm noodle under heel Reps/Duration 2 x 30 sec ea B gastroc, soleus Details at wall Body Position Standing Reps/Duration 2 x 30 sec ea B quads, hip flexors Details at wall Body Position Standing Reps/Duration 2 x 30 sec ea B piriformis Details at wall Body Position Sitting Reps/Duration 2 x 30 sec B [place]yman Activities [place] Activities Cross [place],Hip Abduction/ Adduction Equipment 2 large noodles Duration 10 min Comments alternating 2 min intervals Manual Techniques Aquatic Massage AquaStretch along the VL tendon while seated in lift chair PT-OP-T Assessment and Plan Start: 11/29/21 11:01 Freq: Status: Active Protocol: Document 01/24/22 15:41 TACHO (Rec: 01/24/22 15:48 [id number]) Physical Therapy Assessment Rehab Potential Rehabilitation Potential Good Evaluation Complexity Number of Personal Factors/Comorbidities 1-2 Number of Body Systems Impaired 4 or More Clinical Presentation at Evaluation Evolving Impairments Impairments Activity Tolerance,Balance, Functional Activities, Functional Mobility,Gait,Pain, ROM,Soft Tissue Mobility, Strength,Tone Other Concerns Fall Risk Yes - History of multiple falls Goals Two Impairment Pt unable to maintain a seated or standing position longer than 30 minutes Intermediate Goal (LTG) Pt to note ability to sit for >60 minutes in order to increase distance he is able to drive without a break LTG Duration 01/29/22 One Impairment Pt does not have an appropriate aquatic exercise program Short Term Goal (STG) Pt to be independent and compliant with an appropriate aquatic exercise program STG Duration 12/30/21 Assessment Summary Assessment Limited number of PT appointments due to PT schedule, patient has been coming on own, appears to be overdoing. Worked on increased long lever exercises with minimal knee flex in deep water and added #2 weight for knee joint distraction. Pt physician due to recent increase in pain but feel he has been overdoing. Recommended trial ice or heat after aquatic exercise. Advised to try every other day , continue with more long lever ex. and self massage along VL tendon. Physical Therapy Plan Frequency and Duration Frequency of Treatment 2x/Week Duration of Treatment Two months Plan of Care Start Date 11/29/21 Plan of Care End Date 01/29/22 Therapeutic Interventions Therapeutic Interventions Aquatic Therapy,Balance Training,Gait Training,Manual Therapy,Neuromuscular Re- education,Patient/Caregiver Education,Self-Care/Home Management,Therapeutic Activities,Therapeutic Exercises
--- NOTE | 2022-01-31 14:46 | PT.OTN ---
Current Diagnoses Pain in right leg (01/31/22) Pain in left leg (01/31/22) Physical Therapy Treatment Note PT-OP-A Visit Information Start: 11/29/21 11:01 Freq: Status: Active Protocol: Document 01/31/22 14:28 TACHO (Rec: 01/31/22 14:46 LJ [id number]) Out-Patient Physical Therapy Visit Information Visit Information Visit Type Aquatic Treatment Note Visit Start Time 11:00 Visit Stop Time 11:45 Total Visit Minutes 45 Visit Number 7 Number of HOSE SEAMER Visits 2 PT-OP-B Current Condition Start: 11/29/21 11:01 Freq: Status: Active Protocol: Document 11/29/21 10:30 DCW (Rec: 11/29/21 11:14 DCW [id number]) Current Condition History of Current Condition Onset Date Three year history Current Complaints Bilateral leg pain, low back pain History of Current Condition Pt is a 56 year old male presenting with a three year history of pain, gait, and strength issues following a crushing injury to his leg three years ago at work. 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 Pt has experienced right LE pain and numbness since the injury. In the mean time, pt has begun to have fairly extreme low back and left leg pain due to compensatory movement patterns . Pt notes he has gained a lot of weight since his injury, which is making everything a lot harder. Pt only able to sit or stand for ~30 minutes at a time before experiencing too much pain he must change positions, and is really only able to lay prone, as this is the only position he can tolerate for an extended period of time. Pt notes he has fallen multiple times, because when he gets tired, his right leg starts to drag, but he can't feel it, so he will catch it on multiple obstacles. Treatment Goals Patient/Caregiver Goals Pt wants to be able to learn exercises and stretches he can perform in the pool, which allows him to exercise and be active without worrying about compression through his spine or falling due to leg pain PT-OP-C Subjective Start: 11/29/21 11:01 Freq: Status: Active Protocol: Document 01/31/22 14:28 TACHO (Rec: 01/31/22 14:46 LJ [id number]) OP-PT Subjective Patient Comments Patient Comments Pt states that the manual therapy aqua stretch massage last session made a difference in his LLE lateral pain. He has been doing self-massage at home and he states the pain is almost gone. Today, however , he is having pain in his LLE calf muscles feeling tight and crampy. PT-OP-D Balance Start: 11/29/21 11:01 Freq: Status: Active Protocol: Document 11/29/21 10:30 DCW (Rec: 11/29/21 11:40 DCW [id number]) Balance Tests Tandem Tandem Standing 30+ bilaterally, but fatigued very quickly PT-OP-G Mobility & Gait Start: 11/29/21 11:01 Freq: Status: Active Protocol: Document 11/29/21 10:30 DCW (Rec: 11/29/21 11:28 DCW [id number]) OP Gait Assessment Gait Gait Assistance Required: Independent Assistive Devices Assistive Device None Gait Deviations General Gait Pattern Antalgic Comments Gait Comments Right antalgia with mild right hip vaulting PT-OP-H Neuro Start: 11/29/21 11:27 Freq: Status: Active Protocol: Document 11/29/21 10:30 DCW (Rec: 11/29/21 11:27 DCW [id number]) Sensation Evaluation Location Details Right Lower Leg Light Touch Absent Sharp/Dull Impaired Deep Pressure Impaired Protective Sensation Absent Proprioception (Position) Absent Kinesthesia (Movement) Impaired PT-OP-K Range of Motion Start: 11/29/21 11:01 Freq: Status: Active Protocol: Document 11/29/21 10:30 DCW (Rec: 11/29/21 11:40 DCW [id number]) Lumbar Spine Range of Motion Lumbar Spine Active Degrees Testing Position Standing Flexion 25 Extension 10 Lateral Flexion Left 59 Lateral Flexion Right 59 Comments Lateral flexion measured in cm from fingertips to floor PT-OP-M Strength Start: 11/29/21 11:01 Freq: Status: Active Protocol: Document 11/29/21 10:30 DCW (Rec: 11/29/21 11:40 DCW [id number]) Hip Strength Hip Manual Muscle Testing Right Flexion (L2) 4 Good Extension (S1) 4+ Good+ Abduction 4- Good- Adduction 4 Good External Rotation 4 Good Internal Rotation 4- Good- Left Flexion (L2) 4 Good Extension (S1) 4+ Good+ Abduction 4- Good- Adduction 4 Good External Rotation 4+ Good+ Internal Rotation 4+ Good+ Knee Strength Knee Manual Muscle Testing Right Flexion (S2) 4 Good Extension (L3) 4- Good- Left Flexion (S2) 4+ Good+ Extension (L3) 4 Good Ankle/Foot Strength Ankle and Foot Manual Muscle Testing Right Dorsiflexion (L4) 3 Fair Plantarflexion (S1) 3 Fair Left Dorsiflexion (L4) 4- Good- Plantarflexion (S1) 3 Fair PT-OP-S Aquatic Treatment Start: 11/29/21 11:26 Freq: Status: Active Protocol: Document 01/31/22 14:28 TACHO (Rec: 01/31/22 14:46 TACHO [id number]) Aquatics Treatment Pool Entry/Exit Pool Entry/Exit Method Stairs Assistance Independent Water Walking Marching Water Level Chest Level Level of Assistance Verbal Cues Comments pt states the exercise feels very good on his back Sideways Water Level Chest Level Backwards Water Level Chest Level Level of Assistance Verbal Cues Comments cues for neutral pelvis and coordination Forwards Water Level Chest Level Level of Assistance Verbal Cues Comments cues for neutral pelvis and coordination Lower Extremity Exercises knee extension Details facing wall Body Position Standing Equipment 15x B Comments alternating toe taps on wall heel/toe raise Body Position Standing Water Level Waist Level Reps/Duration 10x B 4 way hip Details hh on wall Body Position Standing Water Level Chest Level Reps/Duration 10 B each Comments cues for neutral pelvis and upright positioning Lower Extremity Stretches ITB Details in corner Body Position Standing Reps/Duration 2x 45 B Comments LLE knee fl/ext during stretch hamstrings Details at wall Body Position Standing Equipment foot on ladder rung in corner Reps/Duration 4 x 45 sec ea B gastroc, soleus Details on bottom step Body Position Standing Reps/Duration 4 x 45 sec ea B quads, hip flexors Details at wall Body Position Standing Reps/Duration 2 x 45 sec ea B Comments manual assist with knee flexion piriformis Details at wall Body Position Sitting Reps/Duration 2 x 30 sec B Spinal Exercises seated marching Details at wall Body Position Sitting Reps/Duration 2 x 1 Min Comments cues for abdominal activation torso rotation Details at wall Body Position Sitting Equipment paddles Reps/Duration 10 Comments cues for abdominal activation [place] Activities Other Activities DLS: T-hang w/LE mvmt pendulum-15 sec pause in sidelying B plank w/LE mvmt\ prone extension-at wall Equipment med belt Duration 13 min PT-OP-T Assessment and Plan Start: 11/29/21 11:01 Freq: Status: Active Protocol: Document 01/31/22 14:28 TACHO (Rec: 01/31/22 14:46 TACHO [id number]) Physical Therapy Assessment Rehab Potential Rehabilitation Potential Good Evaluation Complexity Number of Personal Factors/Comorbidities 1-2 Number of Body Systems Impaired 4 or More Clinical Presentation at Evaluation Evolving Impairments Impairments Activity Tolerance,Balance, Functional Activities, Functional Mobility,Gait,Pain, ROM,Soft Tissue Mobility, Strength,Tone Other Concerns Fall Risk Yes - History of multiple falls Goals Two Impairment Pt unable to maintain a seated or standing position longer than 30 minutes [employer] Line Installer Goal (LTG) Pt to note ability to sit for >60 minutes in order to increase distance he is able to drive without a break LTG Duration 01/29/22 One Impairment Pt does not have an appropriate aquatic exercise program Short Term Goal (STG) Pt to be independent and compliant with an appropriate aquatic exercise program STG Duration 12/30/21 Assessment Summary Assessment Pt tolerated all exercises well without pain or fatigue. DLS in deep water was relatively easy for him therefore he is ready for more challenging exercises. Physical Therapy Plan Frequency and Duration Frequency of Treatment 2x/Week Duration of Treatment Two months Plan of Care Start Date 11/29/21 Plan of Care End Date 01/29/22 Therapeutic Interventions Therapeutic Interventions Aquatic Therapy,Balance Training,Gait Training,Manual Therapy,Neuromuscular Re- education,Patient/Caregiver Education,Self-Care/Home Management,Therapeutic Activities,Therapeutic Exercises Next Visit Focus/Plan Next Note Type Treatment Note Next Visit Plan Progress deep water DLS and cardio exercises. Add ankle floats for balance challenge in walking exercises in shallow .
--- NOTE | 2022-02-07 14:07 | PT.OTN ---
Current Diagnoses Pain in right leg (02/07/22) Pain in left leg (02/07/22) Physical Therapy Treatment Note PT-OP-A Visit Information Start: 11/29/21 11:01 Freq: Status: Active Protocol: Document 02/07/22 13:48 TACHO (Rec: 02/07/22 14:07 LJ [id number]) Out-Patient Physical Therapy Visit Information Visit Information Visit Type Aquatic Treatment Note Visit Start Time 10:15 Visit Stop Time 11:00 Total Visit Minutes 45 Visit Number 8 Number of PAYROLL LEAD Visits 3 PT-OP-B Current Condition Start: 11/29/21 11:01 Freq: Status: Active Protocol: Document 11/29/21 10:30 DCW (Rec: 11/29/21 11:14 DCW [id number]) Current Condition History of Current Condition Onset Date Three year history Current Complaints Bilateral leg pain, low back pain History of Current Condition Pt is a 56 year old male presenting with a three year history of pain, gait, and strength issues following a crushing injury to his leg three years ago at work. 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 Pt has experienced right LE pain and numbness since the injury. In the mean time, pt has begun to have fairly extreme low back and left leg pain due to compensatory movement patterns . Pt notes he has gained a lot of weight since his injury, which is making everything a lot harder. Pt only able to sit or stand for ~30 minutes at a time before experiencing too much pain he must change positions, and is really only able to lay prone, as this is the only position he can tolerate for an extended period of time. Pt notes he has fallen multiple times, because when he gets tired, his right leg starts to drag, but he can't feel it, so he will catch it on multiple obstacles. Treatment Goals Patient/Caregiver Goals Pt wants to be able to learn exercises and stretches he can perform in the pool, which allows him to exercise and be active without worrying about compression through his spine or falling due to leg pain PT-OP-C Subjective Start: 11/29/21 11:01 Freq: Status: Active Protocol: Document 02/07/22 13:48 TACHO (Rec: 02/07/22 14:07 LJ [id number]) OP-PT Subjective Patient Comments Patient Comments Pt states that last session he felt something move in his left ankle while in the deep water doing nothing and had pain for a couple of days. It is subsiding. He claimed that it felt like he rolled his ankle. PT-OP-D Balance Start: 11/29/21 11:01 Freq: Status: Active Protocol: Document 11/29/21 10:30 DCW (Rec: 11/29/21 11:40 DCW [id number]) Balance Tests Tandem Tandem Standing 30+ bilaterally, but fatigued very quickly PT-OP-G Mobility & Gait Start: 11/29/21 11:01 Freq: Status: Active Protocol: Document 11/29/21 10:30 DCW (Rec: 11/29/21 11:28 DCW [id number]) OP Gait Assessment Gait Gait Assistance Required: Independent Assistive Devices Assistive Device None Gait Deviations General Gait Pattern Antalgic Comments Gait Comments Right antalgia with mild right hip vaulting PT-OP-H Neuro Start: 11/29/21 11:27 Freq: Status: Active Protocol: Document 11/29/21 10:30 DCW (Rec: 11/29/21 11:27 DCW [id number]) Sensation Evaluation Location Details Right Lower Leg Light Touch Absent Sharp/Dull Impaired Deep Pressure Impaired Protective Sensation Absent Proprioception (Position) Absent Kinesthesia (Movement) Impaired PT-OP-K Range of Motion Start: 11/29/21 11:01 Freq: Status: Active Protocol: Document 11/29/21 10:30 DCW (Rec: 11/29/21 11:40 DCW [id number]) Lumbar Spine Range of Motion Lumbar Spine Active Degrees Testing Position Standing Flexion 25 Extension 10 Lateral Flexion Left 59 Lateral Flexion Right 59 Comments Lateral flexion measured in cm from fingertips to floor PT-OP-M Strength Start: 11/29/21 11:01 Freq: Status: Active Protocol: Document 11/29/21 10:30 DCW (Rec: 11/29/21 11:40 DCW [id number]) Hip Strength Hip Manual Muscle Testing Right Flexion (L2) 4 Good Extension (S1) 4+ Good+ Abduction 4- Good- Adduction 4 Good External Rotation 4 Good Internal Rotation 4- Good- Left Flexion (L2) 4 Good Extension (S1) 4+ Good+ Abduction 4- Good- Adduction 4 Good External Rotation 4+ Good+ Internal Rotation 4+ Good+ Knee Strength Knee Manual Muscle Testing Right Flexion (S2) 4 Good Extension (L3) 4- Good- Left Flexion (S2) 4+ Good+ Extension (L3) 4 Good Ankle/Foot Strength Ankle and Foot Manual Muscle Testing Right Dorsiflexion (L4) 3 Fair Plantarflexion (S1) 3 Fair Left Dorsiflexion (L4) 4- Good- Plantarflexion (S1) 3 Fair PT-OP-S Aquatic Treatment Start: 11/29/21 11:26 Freq: Status: Active Protocol: Document 02/07/22 13:48 TACHO (Rec: 02/07/22 14:07 [id number]) Aquatics Treatment Pool Entry/Exit Pool Entry/Exit Method Stairs Assistance Independent Water Walking Monster Walk Water Level Chest Level Marching Water Level Chest Level Level of Assistance Verbal Cues Backwards Water Level Chest Level Level of Assistance Verbal Cues Comments cues for neutral pelvis and coordination Forwards Water Level Chest Level Level of Assistance Verbal Cues Comments cues for neutral pelvis and coordination Lower Extremity Exercises heel/toe raise Body Position Standing Water Level Neck Level Reps/Duration 10x B Lower Extremity Stretches ITB Details in corner Body Position Standing Reps/Duration 2x 45 B Comments LLE knee fl/ext during stretch hamstrings Details at wall Body Position Standing Equipment foot on ladder rung in corner Reps/Duration 4 x 45 sec ea B gastroc, soleus Details on bottom step Body Position Standing Reps/Duration 4 x 45 sec ea B quads, hip flexors Details at wall Body Position Standing Reps/Duration 2 x 45 sec ea B Comments manual assist with knee flexion piriformis Details at wall Body Position Sitting Reps/Duration 2 x 30 sec B Spinal Exercises seated marching Details at wall Body Position Sitting Reps/Duration 2 x 1 Min Comments cues for abdominal activation deep water hang Body Position Standing Water Level [employer]yard Equipment [place] Float, neck float, 5# celena LE's Comments reported good stretch, no increase in symptoms [place] Activities Rudyard Activities Bicycle,Cross Country,Hip Abduction/Adduction Equipment med belt; BBs Duration 15 Comments pt experienced pain in proximal lateral LLE with hip AB. Moved to corner and he was able to perform same exercise with less ROM and more stability Manual Techniques Aquatic Massage aquastretch along VL and peroneals of LLE while seated in lift PT-OP-T Assessment and Plan Start: 11/29/21 11:01 Freq: Status: Active Protocol: Document 02/07/22 13:48 TACHO (Rec: 02/07/22 14:07 TACHO [id number]) Physical Therapy Assessment Rehab Potential Rehabilitation Potential Good Evaluation Complexity Number of Personal Factors/Comorbidities 1-2 Number of Body Systems Impaired 4 or More Clinical Presentation at Evaluation Evolving Impairments Impairments Activity Tolerance,Balance, Functional Activities, Functional Mobility,Gait,Pain, ROM,Soft Tissue Mobility, Strength,Tone Other Concerns Fall Risk Yes - History of multiple falls Goals Two Impairment Pt unable to maintain a seated or standing position longer than 30 minutes Senior Care Goal (LTG) Pt to note ability to sit for >60 minutes in order to increase distance he is able to drive without a break LTG Duration 01/29/22 One Impairment Pt does not have an appropriate aquatic exercise program Short Term Goal (STG) Pt to be independent and compliant with an appropriate aquatic exercise program STG Duration 12/30/21 Assessment Summary Assessment Pt tolerated lower level exercises and stretching well without increase in pain. Post manual technique and traction pt felt no pain in LLE. At end of session pt was not fatigued but stated his legs felt like jello. Physical Therapy Plan Frequency and Duration Frequency of Treatment 2x/Week Duration of Treatment Two months Plan of Care Start Date 11/29/21 Plan of Care End Date 01/29/22 Therapeutic Interventions Therapeutic Interventions Aquatic Therapy,Balance Training,Gait Training,Manual Therapy,Neuromuscular Re- education,Patient/Caregiver Education,Self-Care/Home Management,Therapeutic Activities,Therapeutic Exercises Next Visit Focus/Plan Next Note Type Treatment Note Next Visit Plan Assess pain in LLE ankle and lateral aspect of entire LLE. Progress deep water DLS and cardio exercises. Add ankle floats for balance challenge in walking exercises in shallow .
--- NOTE | 2022-02-21 13:00 | PT.OPPOC ---
Physical, Occupational & Speech Therapy At [facility] Current Diagnoses Pain in right leg (02/21/22) Pain in left leg (02/21/22) Visit Care Team Role Provider Type Johan Vallejo MD Attending Provider Physician Family Provider Primary Care Provider Referring Provider Specialty: Family Practice Address: [address] [place] [address], [facility] Email: [email or web address] Plan Of Care PT-OP-T Assessment and Plan Start: 11/29/21 11:01 Freq: Status: Active Protocol: Document 02/21/22 01:00 JODI (Rec: 02/25/22 09:23 SAK [id number]) Physical Therapy Assessment Rehab Potential Rehabilitation Potential Good Evaluation Complexity Number of Personal Factors/Comorbidities 1-2 Number of Body Systems Impaired 4 or More Clinical Presentation at Evaluation Evolving Impairments Impairments Activity Tolerance,Balance, Functional Activities, Functional Mobility,Gait,Pain, ROM,Soft Tissue Mobility, Strength,Tone Other Concerns Fall Risk Yes - History of multiple falls Goals Three Impairment Lower extremity functional scale 28% Alf Goal (LTG) Improve LEFS to at least 70% as measure of improved function. 02/22/22: improved to 43%, goal progress. Feel patient has further potential for improvement LTG Duration 04/26/22 Two Impairment Pt unable to maintain a seated or standing position longer than 30 minutes Alf Goal (LTG) Pt to note ability to sit for >60 minutes in order to increase distance he is able to drive without a break 02/22/22: still limited to 30 minutes though with decreased intensity of pain per his report LTG Duration 04/26/22 One Impairment Pt does not have an appropriate aquatic exercise program Alf Goal (LTG) Pt to be independent and compliant with an appropriate aquatic exercise program 02/22/22: goal partially met; patient is highly compliant with aquatic exercise program but we are continuing to make modifications for best tolerance and perform manual therapy techniques patient is unable to perform on his own. LTG Duration 04/26/22 Assessment Summary Assessment Patient has had 9 PT visits, 8 in aquatic therapy. He is highly compliant to going to the pool on his own as he reports it is the only thing that gives him any type of relief. His symptoms are very irritable, so while we have progressed his therapeutic aquatic exercise program some, we continue to make modifications. We have added manual aquatic therapy techniques which patient finds very beneficial but he is unable to do on his own as it requires hands on treatment by a PT. Feel he would benefit highly from continued aquatic therapy to further progress his aquatic exercise program as tolerated, and do manual techniques to improve soft tissue mobility and decrease his pain. Patient is highly motivated to continue with PT. Physical Therapy Plan Frequency and Duration Frequency of Treatment 1x/Week Duration of Treatment 2 months Plan of Care Start Date 02/22/22 Plan of Care End Date 04/26/22 Therapeutic Interventions Therapeutic Interventions Aquatic Therapy,Balance Training,Gait Training,Manual Therapy,Neuromuscular Re- education,Patient/Caregiver Education,Self-Care/Home Management,Therapeutic Activities,Therapeutic Exercises Next Visit Focus/Plan Next Note Type Treatment Note Next Visit Plan Progress deep water DLS, increase intensity of cardio ex in deep water, add ankle floats to increase challenge of LE ex in shallow water. Continue with Aqua Stretch for improved soft tissue mobility and decreased pain. Plan of Care Dates Plan of Care Start Date 02/22/22 Plan of Care End Date 04/26/22 Electronically Signed by: Janae Orellana, PT 02/25/22 0924 If you are in agreement with this Plan of Care, please return a signed and dated copy. I have reviewed this Plan of Care and certify that the skilled therapy services above are required to meet the patient?s needs. Physician Signature Date Printed Name and Credentials Clinical Instructor Signature Printed Name and Credentials
--- NOTE | 2022-02-21 13:00 | PT.OTN ---
Current Diagnoses Pain in right leg (02/21/22) Pain in left leg (02/21/22) Physical Therapy Treatment Note PT-OP-A Visit Information Start: 11/29/21 11:01 Freq: Status: Active Protocol: Document 02/21/22 01:00 [facility] (Rec: 02/25/22 09:23 [facility] [id number]) Out-Patient Physical Therapy Visit Information Visit Information Visit Type Aquatic Treatment Note Visit Start Time 01:00 Visit Stop Time 11:45 Total Visit Minutes 45 Visit Number 9/9 Number of REAL ESTATE INSTRUCTOR Visits 0 PT-OP-B Current Condition Start: 11/29/21 11:01 Freq: Status: Active Protocol: Document 11/29/21 10:30 DCW (Rec: 11/29/21 11:14 DCW [id number]) Current Condition History of Current Condition Onset Date Three year history Current Complaints Bilateral leg pain, low back pain History of Current Condition Pt is a 56 year old male presenting with a three year history of pain, gait, and strength issues following a crushing injury to his leg three years ago at work. 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 Pt has experienced right LE pain and numbness since the injury. In the mean time, pt has begun to have fairly extreme low back and left leg pain due to compensatory movement patterns . Pt notes he has gained a lot of weight since his injury, which is making everything a lot harder. Pt only able to sit or stand for ~30 minutes at a time before experiencing too much pain he must change positions, and is really only able to lay prone, as this is the only position he can tolerate for an extended period of time. Pt notes he has fallen multiple times, because when he gets tired, his right leg starts to drag, but he can't feel it, so he will catch it on multiple obstacles. Treatment Goals Patient/Caregiver Goals Pt wants to be able to learn exercises and stretches he can perform in the pool, which allows him to exercise and be active without worrying about compression through his spine or falling due to leg pain PT-OP-C Subjective Start: 11/29/21 11:01 Freq: Status: Active Protocol: Document 02/21/22 01:00 [facility] (Rec: 02/25/22 09:23 [facility] [id number]) OP-PT Subjective Patient Comments Patient Comments Patient reports he feels aquatic therapy is the only thing that is helpful to him and really felt manual therapy on his leg in the pool was helpful last session. , would like to be able to progress his aquatic therapy further but his symptoms are very irritable, states he has a hard time do ing this on his own. PT-OP-D Balance Start: 11/29/21 11:01 Freq: Status: Active Protocol: Document 11/29/21 10:30 DCW (Rec: 11/29/21 11:40 DCW [id number]) Balance Tests Tandem Tandem Standing 30+ bilaterally, but fatigued very quickly PT-OP-G Mobility & Gait Start: 11/29/21 11:01 Freq: Status: Active Protocol: Document 11/29/21 10:30 DCW (Rec: 11/29/21 11:28 DCW [id number]) OP Gait Assessment Gait Gait Assistance Required: Independent Assistive Devices Assistive Device None Gait Deviations General Gait Pattern Antalgic Comments Gait Comments Right antalgia with mild right hip vaulting PT-OP-H Neuro Start: 11/29/21 11:27 Freq: Status: Active Protocol: Document 11/29/21 10:30 DCW (Rec: 11/29/21 11:27 DCW [id number]) Sensation Evaluation Location Details Right Lower Leg Light Touch Absent Sharp/Dull Impaired Deep Pressure Impaired Protective Sensation Absent Proprioception (Position) Absent Kinesthesia (Movement) Impaired PT-OP-K Range of Motion Start: 11/29/21 11:01 Freq: Status: Active Protocol: Document 11/29/21 10:30 DCW (Rec: 11/29/21 11:40 DCW [id number]) Lumbar Spine Range of Motion Lumbar Spine Active Degrees Testing Position Standing Flexion 25 Extension 10 Lateral Flexion Left 59 Lateral Flexion Right 59 Comments Lateral flexion measured in cm from fingertips to floor PT-OP-M Strength Start: 11/29/21 11:01 Freq: Status: Active Protocol: Document 11/29/21 10:30 DCW (Rec: 11/29/21 11:40 DCW [id number]) Hip Strength Hip Manual Muscle Testing Right Flexion (L2) 4 Good Extension (S1) 4+ Good+ Abduction 4- Good- Adduction 4 Good External Rotation 4 Good Internal Rotation 4- Good- Left Flexion (L2) 4 Good Extension (S1) 4+ Good+ Abduction 4- Good- Adduction 4 Good External Rotation 4+ Good+ Internal Rotation 4+ Good+ Knee Strength Knee Manual Muscle Testing Right Flexion (S2) 4 Good Extension (L3) 4- Good- Left Flexion (S2) 4+ Good+ Extension (L3) 4 Good Ankle/Foot Strength Ankle and Foot Manual Muscle Testing Right Dorsiflexion (L4) 3 Fair Plantarflexion (S1) 3 Fair Left Dorsiflexion (L4) 4- Good- Plantarflexion (S1) 3 Fair PT-OP-S Aquatic Treatment Start: 11/29/21 11:26 Freq: Status: Active Protocol: Document 02/21/22 01:00 JODI (Rec: 02/25/22 09:23 [facility] [id number]) Aquatics Treatment Pool Entry/Exit Pool Entry/Exit Method Stairs Assistance Independent Water Walking Marching Water Level Chest Level Level of Assistance Verbal Cues Sideways Water Level Chest Level Level of Assistance Verbal Cues Comments cues for neutral pelvis, core stab Backwards Water Level Chest Level Level of Assistance Verbal Cues Comments cues for neutral pelvis core stab Forwards Water Level Chest Level Level of Assistance Verbal Cues Comments cues for neutral pelvis and core stab Lower Extremity Exercises heel/toe raise Body Position Standing Water Level Neck Level Reps/Duration 10x B 4 way hip Details hh on wall Body Position Standing Water Level Chest Level Reps/Duration 10 B each Comments cues for postural alignment and core stab Lower Extremity Stretches ITB Details in corner Body Position Standing Reps/Duration 2x 45 B Comments LLE knee fl/ext during stretch hamstrings Details at wall Body Position Standing Equipment Small Noodle Reps/Duration 4 x 45 sec ea B quads, hip flexors Details at wall Body Position Standing Equipment Small Noodle Reps/Duration 2 x 45 sec ea B Comments manual assist with knee flexion piriformis Details at wall Body Position Sitting Reps/Duration 2 x 30 sec B Spinal Exercises deep water hang Body Position Standing Water Level [place] Equipment Platinum Float, neck float, 5# celena LE's Comments reported good stretch, no increase in symptoms [place] Activities [place] Activities Bicycle,[place],Hip Abduction/Adduction Equipment med belt, large noodles Manual Techniques Aquatic Massage Aquastretch IT band standing in corner PT-OP-T Assessment and Plan Start: 11/29/21 11:01 Freq: Status: Active Protocol: Document 02/21/22 01:00 JODI (Rec: 02/25/22 09:23 [facility] [id number]) Physical Therapy Assessment Rehab Potential Rehabilitation Potential Good Evaluation Complexity Number of Personal Factors/Comorbidities 1-2 Number of Body Systems Impaired 4 or More Clinical Presentation at Evaluation Evolving Impairments Impairments Activity Tolerance,Balance, Functional Activities, Functional Mobility,Gait,Pain, ROM,Soft Tissue Mobility, Strength,Tone Other Concerns Fall Risk Yes - History of multiple falls Goals Three Impairment Lower extremity functional scale 28% Machine Egg Washer Goal (LTG) Improve LEFS to at least 70% as measure of improved function. 02/22/22: improved to 43%, goal progress. Feel patient has further potential for improvement LTG Duration 04/26/22 Two Impairment Pt unable to maintain a seated or standing position longer than 30 minutes [facility] Goal (LTG) Pt to note ability to sit for >60 minutes in order to increase distance he is able to drive without a break 02/22/22: still limited to 30 minutes though with decreased intensity of pain per his report LTG Duration 04/26/22 One Impairment Pt does not have an appropriate aquatic exercise program Machine Egg Washer Goal (LTG) Pt to be independent and compliant with an appropriate aquatic exercise program 02/22/22: goal partially met; patient is highly compliant with aquatic exercise program but we are continuing to make modifications for best tolerance and perform manual therapy techniques patient is unable to perform on his own. LTG Duration 04/26/22 Assessment Summary Assessment Patient has had 9 PT visits, 8 in aquatic therapy. He is highly compliant to going to the pool on his own as he reports it is the only thing that gives him any type of relief. His symptoms are very irritable, so while we have progressed his therapeutic aquatic exercise program some, we continue to make modifications. We have added manual aquatic therapy techniques which patient finds very beneficial but he is unable to do on his own as it requires hands on treatment by a PT. Feel he would benefit highly from continued aquatic therapy to further progress his aquatic exercise program as tolerated, and do manual techniques to improve soft tissue mobility and decrease his pain. Patient is highly motivated to continue with PT. Physical Therapy Plan Frequency and Duration Frequency of Treatment 1x/Week Duration of Treatment 2 months Plan of Care Start Date 02/22/22 Plan of Care End Date 08/11/22 Therapeutic Interventions Therapeutic Interventions Aquatic Therapy,Balance Training,Gait Training,Manual Therapy,Neuromuscular Re- education,Patient/Caregiver Education,Self-Care/Home Management,Therapeutic Activities,Therapeutic Exercises Next Visit Focus/Plan Next Note Type Treatment Note Next Visit Plan Progress deep water DLS, increase intensity of cardio ex in deep water, add ankle floats to increase challenge of LE ex in shallow water. Continue with Aqua Stretch for improved soft tissue mobility and decreased pain.
--- NOTE | 2022-03-12 15:06 | PT.OTN ---
Current Diagnoses Pain in right leg (03/12/22) Pain in left leg (03/12/22) Physical Therapy Treatment Note PT-OP-A Visit Information Start: 11/29/21 11:01 Freq: Status: Active Protocol: Document 03/12/22 14:50 TACHO (Rec: 03/12/22 15:06 LJ [id number]) Out-Patient Physical Therapy Visit Information Visit Information Visit Type Aquatic Treatment Note Visit Start Time 12:00 Visit Stop Time 12:45 Total Visit Minutes 45 Visit Number 10 Number of RUN LEAD Visits 1 PT-OP-B Current Condition Start: 11/29/21 11:01 Freq: Status: Active Protocol: Document 11/29/21 10:30 DCW (Rec: 11/29/21 11:14 DCW [id number]) Current Condition History of Current Condition Onset Date Three year history Current Complaints Bilateral leg pain, low back pain History of Current Condition Pt is a 56 year old male presenting with a three year history of pain, gait, and strength issues following a crushing injury to his leg three years ago at work. 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 Pt has experienced right LE pain and numbness since the injury. In the mean time, pt has begun to have fairly extreme low back and left leg pain due to compensatory movement patterns . Pt notes he has gained a lot of weight since his injury, which is making everything a lot harder. Pt only able to sit or stand for ~30 minutes at a time before experiencing too much pain he must change positions, and is really only able to lay prone, as this is the only position he can tolerate for an extended period of time. Pt notes he has fallen multiple times, because when he gets tired, his right leg starts to drag, but he can't feel it, so he will catch it on multiple obstacles. Treatment Goals Patient/Caregiver Goals Pt wants to be able to learn exercises and stretches he can perform in the pool, which allows him to exercise and be active without worrying about compression through his spine or falling due to leg pain PT-OP-C Subjective Start: 11/29/21 11:01 Freq: Status: Active Protocol: Document 03/12/22 14:50 TACHO (Rec: 03/12/22 15:06 LJ [id number]) OP-PT Subjective Patient Comments Patient Comments Pt reports he is sore all over from gardening and working outside. He had an MRI earlier in the morning on his LLE and anticipates getting the results soon. PT-OP-D Balance Start: 11/29/21 11:01 Freq: Status: Active Protocol: Document 11/29/21 10:30 DCW (Rec: 11/29/21 11:40 DCW [id number]) Balance Tests Tandem Tandem Standing 30+ bilaterally, but fatigued very quickly PT-OP-G Mobility & Gait Start: 11/29/21 11:01 Freq: Status: Active Protocol: Document 11/29/21 10:30 DCW (Rec: 11/29/21 11:28 DCW [id number]) OP Gait Assessment Gait Gait Assistance Required: Independent Assistive Devices Assistive Device None Gait Deviations General Gait Pattern Antalgic Comments Gait Comments Right antalgia with mild right hip vaulting PT-OP-H Neuro Start: 11/29/21 11:27 Freq: Status: Active Protocol: Document 11/29/21 10:30 DCW (Rec: 11/29/21 11:27 DCW [id number]) Sensation Evaluation Location Details Right Lower Leg Light Touch Absent Sharp/Dull Impaired Deep Pressure Impaired Protective Sensation Absent Proprioception (Position) Absent Kinesthesia (Movement) Impaired PT-OP-K Range of Motion Start: 11/29/21 11:01 Freq: Status: Active Protocol: Document 11/29/21 10:30 DCW (Rec: 11/29/21 11:40 DCW [id number]) Lumbar Spine Range of Motion Lumbar Spine Active Degrees Testing Position Standing Flexion 25 Extension 10 Lateral Flexion Left 59 Lateral Flexion Right 59 Comments Lateral flexion measured in cm from fingertips to floor PT-OP-M Strength Start: 11/29/21 11:01 Freq: Status: Active Protocol: Document 11/29/21 10:30 DCW (Rec: 11/29/21 11:40 DCW [id number]) Hip Strength Hip Manual Muscle Testing Right Flexion (L2) 4 Good Extension (S1) 4+ Good+ Abduction 4- Good- Adduction 4 Good External Rotation 4 Good Internal Rotation 4- Good- Left Flexion (L2) 4 Good Extension (S1) 4+ Good+ Abduction 4- Good- Adduction 4 Good External Rotation 4+ Good+ Internal Rotation 4+ Good+ Knee Strength Knee Manual Muscle Testing Right Flexion (S2) 4 Good Extension (L3) 4- Good- Left Flexion (S2) 4+ Good+ Extension (L3) 4 Good Ankle/Foot Strength Ankle and Foot Manual Muscle Testing Right Dorsiflexion (L4) 3 Fair Plantarflexion (S1) 3 Fair Left Dorsiflexion (L4) 4- Good- Plantarflexion (S1) 3 Fair PT-OP-S Aquatic Treatment Start: 11/29/21 11:26 Freq: Status: Active Protocol: Document 03/12/22 14:50 TACHO (Rec: 03/12/22 15:06 [id number]) Aquatics Treatment Pool Entry/Exit Pool Entry/Exit Method Stairs Assistance Independent Water Walking Marching Water Level Chest Level Level of Assistance Verbal Cues Sideways Water Level Chest Level Level of Assistance Verbal Cues Comments cues for neutral pelvis, core stab Forwards Water Level Chest Level Level of Assistance Verbal Cues Comments cues for neutral pelvis and core stab Lower Extremity Exercises heel/toe raise Body Position Standing Water Level Neck Level Reps/Duration 10x B Lower Extremity Stretches ITB Details in corner Body Position Standing Reps/Duration 2x 45 B Comments LLE knee fl/ext during stretch hamstrings Details at wall Body Position Standing Equipment Small Noodle Reps/Duration 4 x 45 sec ea B gastroc, soleus Details on bottom step Body Position Standing Reps/Duration 4 x 45 sec ea B quads, hip flexors Details at wall Body Position Standing Equipment Small Noodle Reps/Duration 2 x 45 sec ea B Comments manual assist with knee flexion piriformis Details at wall Body Position Sitting Reps/Duration 2 x 30 sec B Manual Techniques Aquatic Massage Gentle AquaStretch techniques including foot, ankle, toe, ITB, hip releases. PT-OP-T Assessment and Plan Start: 11/29/21 11:01 Freq: Status: Active Protocol: Document 03/12/22 14:50 TACHO (Rec: 03/12/22 15:06 [id number]) Physical Therapy Assessment Rehab Potential Rehabilitation Potential Good Evaluation Complexity Number of Personal Factors/Comorbidities 1-2 Number of Body Systems Impaired 4 or More Clinical Presentation at Evaluation Evolving Impairments Impairments Activity Tolerance,Balance, Functional Activities, Functional Mobility,Gait,Pain, ROM,Soft Tissue Mobility, Strength,Tone Other Concerns Fall Risk Yes - History of multiple falls Goals Three Impairment Lower extremity functional scale 28% Virtual Reality Specialist Goal (LTG) Improve LEFS to at least 70% as measure of improved function. 02/22/22: improved to 43%, goal progress. Feel patient has further potential for improvement LTG Duration 04/26/22 Two Impairment Pt unable to maintain a seated or standing position longer than 30 minutes [facility] Goal (LTG) Pt to note ability to sit for >60 minutes in order to increase distance he is able to drive without a break 02/22/22: still limited to 30 minutes though with decreased intensity of pain per his report LTG Duration 04/26/22 One Impairment Pt does not have an appropriate aquatic exercise program Virtual Reality Specialist Goal (LTG) Pt to be independent and compliant with an appropriate aquatic exercise program 02/22/22: goal partially met; patient is highly compliant with aquatic exercise program but we are continuing to make modifications for best tolerance and perform manual therapy techniques patient is unable to perform on his own. LTG Duration 04/26/22 Assessment Summary Assessment Therapy session focusing on stretching and AquaStretch technique for LLE. Pt stated he felt some relief with the stretching and massage today. After several minutes and one round of AquaStretch on LLE he exited the pool to walk on deck. He stated he felt a difference/improvement in walking. Pt had several trigger points along the length of the ITB from iliac crest to point of insertion. He experienced some burning sensation in lateral upper thigh of LLE which went away after walking a lap in the pool prior to exiting the pool . Physical Therapy Plan Frequency and Duration Frequency of Treatment 1x/Week Duration of Treatment 2 months Plan of Care Start Date 02/22/22 Plan of Care End Date 04/26/22 Therapeutic Interventions Therapeutic Interventions Aquatic Therapy,Balance Training,Gait Training,Manual Therapy,Neuromuscular Re- education,Patient/Caregiver Education,Self-Care/Home Management,Therapeutic Activities,Therapeutic Exercises Next Visit Focus/Plan Next Note Type Treatment Note Next Visit Plan Continue with gentle AquaStretch to include both LEs and hip releases.
--- NOTE | 2022-04-18 15:42 | PT.OTN ---
Current Diagnoses Pain in right leg (04/18/22) Pain in left leg (04/18/22) Physical Therapy Treatment Note PT-OP-A Visit Information Start: 11/29/21 11:01 Freq: Status: Active Protocol: Document 04/18/22 15:25 LJ (Rec: 04/18/22 15:42 LJ [id number]) Out-Patient Physical Therapy Visit Information Visit Information Visit Type Aquatic Treatment Note Visit Start Time 12:00 Visit Stop Time 12:45 Total Visit Minutes 45 Visit Number 11 Number of CREATIVE PROJECT MANAGER Visits 2 PT-OP-B Current Condition Start: 11/29/21 11:01 Freq: Status: Active Protocol: Document 11/29/21 10:30 DCW (Rec: 11/29/21 11:14 DCW [id number]) Current Condition History of Current Condition Onset Date Three year history Current Complaints Bilateral leg pain, low back pain History of Current Condition Pt is a 56 year old male presenting with a three year history of pain, gait, and strength issues following a crushing injury to his leg three years ago at work. 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 Pt has experienced right LE pain and numbness since the injury. In the mean time, pt has begun to have fairly extreme low back and left leg pain due to compensatory movement patterns . Pt notes he has gained a lot of weight since his injury, which is making everything a lot harder. Pt only able to sit or stand for ~30 minutes at a time before experiencing too much pain he must change positions, and is really only able to lay prone, as this is the only position he can tolerate for an extended period of time. Pt notes he has fallen multiple times, because when he gets tired, his right leg starts to drag, but he can't feel it, so he will catch it on multiple obstacles. Treatment Goals Patient/Caregiver Goals Pt wants to be able to learn exercises and stretches he can perform in the pool, which allows him to exercise and be active without worrying about compression through his spine or falling due to leg pain PT-OP-C Subjective Start: 11/29/21 11:01 Freq: Status: Active Protocol: Document 04/18/22 15:25 TACHO (Rec: 04/18/22 15:42 LJ [id number]) OP-PT Subjective Patient Comments Patient Comments Pt has not been to the pool on his own much lately and is feeling more pain in LEs, particularly the right. States that it hurts the most when he sits in his chair. Says he can't stay in one position for very long and is always squirming to find a comfortable position. PT-OP-D Balance Start: 11/29/21 11:01 Freq: Status: Active Protocol: Document 11/29/21 10:30 DCW (Rec: 11/29/21 11:40 DCW [id number]) Balance Tests Tandem Tandem Standing 30+ bilaterally, but fatigued very quickly PT-OP-G Mobility & Gait Start: 11/29/21 11:01 Freq: Status: Active Protocol: Document 11/29/21 10:30 DCW (Rec: 11/29/21 11:28 DCW [id number]) OP Gait Assessment Gait Gait Assistance Required: Independent Assistive Devices Assistive Device None Gait Deviations General Gait Pattern Antalgic Comments Gait Comments Right antalgia with mild right hip vaulting PT-OP-H Neuro Start: 11/29/21 11:27 Freq: Status: Active Protocol: Document 11/29/21 10:30 DCW (Rec: 11/29/21 11:27 DCW [id number]) Sensation Evaluation Location Details Right Lower Leg Light Touch Absent Sharp/Dull Impaired Deep Pressure Impaired Protective Sensation Absent Proprioception (Position) Absent Kinesthesia (Movement) Impaired PT-OP-K Range of Motion Start: 11/29/21 11:01 Freq: Status: Active Protocol: Document 11/29/21 10:30 DCW (Rec: 11/29/21 11:40 DCW [id number]) Lumbar Spine Range of Motion Lumbar Spine Active Degrees Testing Position Standing Flexion 25 Extension 10 Lateral Flexion Left 59 Lateral Flexion Right 59 Comments Lateral flexion measured in cm from fingertips to floor PT-OP-M Strength Start: 11/29/21 11:01 Freq: Status: Active Protocol: Document 11/29/21 10:30 DCW (Rec: 11/29/21 11:40 DCW [id number]) Hip Strength Hip Manual Muscle Testing Right Flexion (L2) 4 Good Extension (S1) 4+ Good+ Abduction 4- Good- Adduction 4 Good External Rotation 4 Good Internal Rotation 4- Good- Left Flexion (L2) 4 Good Extension (S1) 4+ Good+ Abduction 4- Good- Adduction 4 Good External Rotation 4+ Good+ Internal Rotation 4+ Good+ Knee Strength Knee Manual Muscle Testing Right Flexion (S2) 4 Good Extension (L3) 4- Good- Left Flexion (S2) 4+ Good+ Extension (L3) 4 Good Ankle/Foot Strength Ankle and Foot Manual Muscle Testing Right Dorsiflexion (L4) 3 Fair Plantarflexion (S1) 3 Fair Left Dorsiflexion (L4) 4- Good- Plantarflexion (S1) 3 Fair PT-OP-S Aquatic Treatment Start: 11/29/21 11:26 Freq: Status: Active Protocol: Document 04/18/22 15:25 TACHO (Rec: 04/18/22 15:42 TACHO [id number]) Aquatics Treatment Pool Entry/Exit Pool Entry/Exit Method Stairs Assistance Independent Water Walking [place] Water Level Chest Level Marching Water Level Chest Level Sideways Water Level Chest Level Comments improved posture w/o cueing Backwards Water Level Chest Level Comments modified lunge Forwards Water Level Waist Level Comments improved balance in shallower depth Lower Extremity Exercises knee extension Details facing wall Body Position Standing Equipment 15x B Comments alternating toe taps on wall 4 way hip Details hh on wall prn Body Position Standing Water Level Chest Level Reps/Duration 10 B each Comments cues for postural alignment and core stab Lower Extremity Stretches ITB Details in corner Body Position Standing Reps/Duration 2x 45 B Comments LLE knee fl/ext during stretch hamstrings Details at wall Body Position Standing Equipment Small Noodle Reps/Duration 4 x 45 sec ea B gastroc, soleus Details on bottom step Body Position Standing Reps/Duration 4 x 45 sec ea B quads, hip flexors Details at wall Body Position Standing Equipment Small Noodle Reps/Duration 2 x 45 sec ea B Comments manual assist with knee flexion DKTC/SKTC Details at wall Body Position Standing Reps/Duration 2 x 45 sec each piriformis Details at wall Body Position Sitting Reps/Duration 2 x 30 sec B Spinal Exercises seated marching Details at wall Body Position Sitting Water Level Neck Level Reps/Duration 2 x 1 Min Comments cues for abdominal activation torso rotation Details at wall Body Position Sitting Equipment paddles Reps/Duration 10 Comments cues for abdominal activation [place] Activities [place] Activities Bicycle,Cross Country,Hip Abduction/Adduction Other Activities prone extension burpees x 20 crunches-noodle under armpits and under knees seated twists-noodle under arm pits Equipment med belt, large noodles Duration 13 Manual Techniques Aquatic Massage Gentle AquaStretch techniques including foot, ankle, lateral calf-5 min left LE peroneal muscle softened PT-OP-T Assessment and Plan Start: 11/29/21 11:01 Freq: Status: Active Protocol: Document 04/18/22 15:25 TACHO (Rec: 04/18/22 15:42 TACHO [id number]) Physical Therapy Assessment Rehab Potential Rehabilitation Potential Good Evaluation Complexity Number of Personal Factors/Comorbidities 1-2 Number of Body Systems Impaired 4 or More Clinical Presentation at Evaluation Evolving Impairments Impairments Activity Tolerance,Balance, Functional Activities, Functional Mobility,Gait,Pain, ROM,Soft Tissue Mobility, Strength,Tone Other Concerns Fall Risk Yes - History of multiple falls Goals Three Impairment Lower extremity functional scale 28% Care Home Goal (LTG) Improve LEFS to at least 70% as measure of improved function. 02/22/22: improved to 43%, goal progress. Feel patient has further potential for improvement LTG Duration 04/26/22 Two Impairment Pt unable to maintain a seated or standing position longer than 30 minutes [place] Goal (LTG) Pt to note ability to sit for >60 minutes in order to increase distance he is able to drive without a break 02/22/22: still limited to 30 minutes though with decreased intensity of pain per his report LTG Duration 04/26/22 One Impairment Pt does not have an appropriate aquatic exercise program Care Home Goal (LTG) Pt to be independent and compliant with an appropriate aquatic exercise program 02/22/22: goal partially met; patient is highly compliant with aquatic exercise program but we are continuing to make modifications for best tolerance and perform manual therapy techniques patient is unable to perform on his own. LTG Duration 04/26/22 Assessment Summary Assessment Pt has no complaint of pain during exercises. He responds well to new exercises and shows improvement in core stabilization and coordination . He benefits from AquaStretch techniques and stretching. He would benefit from multiple AquaStretch sessions per week to release myofascial adhesions and muscle tightness . Physical Therapy Plan Frequency and Duration Frequency of Treatment 1x/Week Duration of Treatment 2 months Plan of Care Start Date 02/22/22 Plan of Care End Date 04/26/22 Therapeutic Interventions Therapeutic Interventions Aquatic Therapy,Balance Training,Gait Training,Manual Therapy,Neuromuscular Re- education,Patient/Caregiver Education,Self-Care/Home Management,Therapeutic Activities,Therapeutic Exercises Next Visit Focus/Plan Next Note Type Treatment Note Next Visit Plan Continue with warm-up exercises and stretches and focus on AquaStretch to include both LEs and hip releases.
--- NOTE | 2022-05-28 14:52 | PT.OTN ---
Current Diagnoses Pain in right leg (05/28/22) Pain in left leg (05/28/22) Physical Therapy Treatment Note PT-OP-A Visit Information Start: 11/29/21 11:01 Freq: Status: Active Protocol: Document 05/28/22 17:08 [facility] (Rec: 05/28/22 17:25 [facility] [id number]) Out-Patient Physical Therapy Visit Information Visit Information Visit Type Aquatic Treatment Note Visit Start Time 10:20 Visit Stop Time 11:00 Total Visit Minutes 40 Visit Number 12 Number of SPECIAL NEEDS TUTOR Visits 0 PT-OP-B Current Condition Start: 11/29/21 11:01 Freq: Status: Active Protocol: Document 11/29/21 10:30 DCW (Rec: 11/29/21 11:14 DCW [id number]) Current Condition History of Current Condition Onset Date Three year history Current Complaints Bilateral leg pain, low back pain History of Current Condition Pt is a 56 year old male presenting with a three year history of pain, gait, and strength issues following a crushing injury to his leg three years ago at work. 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 Pt has experienced right LE pain and numbness since the injury. In the mean time, pt has begun to have fairly extreme low back and left leg pain due to compensatory movement patterns . Pt notes he has gained a lot of weight since his injury, which is making everything a lot harder. Pt only able to sit or stand for ~30 minutes at a time before experiencing too much pain he must change positions, and is really only able to lay prone, as this is the only position he can tolerate for an extended period of time. Pt notes he has fallen multiple times, because when he gets tired, his right leg starts to drag, but he can't feel it, so he will catch it on multiple obstacles. Treatment Goals Patient/Caregiver Goals Pt wants to be able to learn exercises and stretches he can perform in the pool, which allows him to exercise and be active without worrying about compression through his spine or falling due to leg pain PT-OP-C Subjective Start: 11/29/21 11:01 Freq: Status: Active Protocol: Document 05/28/22 17:08 [facility] (Rec: 05/28/22 17:25 [facility] [id number]) OP-PT Subjective Patient Comments Patient Comments Patient reports increased pain in back, left lateral knee, right LE with decreased aquatic PT. PT-OP-D Balance Start: 11/29/21 11:01 Freq: Status: Active Protocol: Document 11/29/21 10:30 DCW (Rec: 11/29/21 11:40 DCW [id number]) Balance Tests Tandem Tandem Standing 30+ bilaterally, but fatigued very quickly PT-OP-G Mobility & Gait Start: 11/29/21 11:01 Freq: Status: Active Protocol: Document 11/29/21 10:30 DCW (Rec: 11/29/21 11:28 DCW [id number]) OP Gait Assessment Gait Gait Assistance Required: Independent Assistive Devices Assistive Device None Gait Deviations General Gait Pattern Antalgic Comments Gait Comments Right antalgia with mild right hip vaulting PT-OP-H Neuro Start: 11/29/21 11:27 Freq: Status: Active Protocol: Document 11/29/21 10:30 DCW (Rec: 11/29/21 11:27 DCW [id number]) Sensation Evaluation Location Details Right Lower Leg Light Touch Absent Sharp/Dull Impaired Deep Pressure Impaired Protective Sensation Absent Proprioception (Position) Absent Kinesthesia (Movement) Impaired PT-OP-K Range of Motion Start: 11/29/21 11:01 Freq: Status: Active Protocol: Document 11/29/21 10:30 DCW (Rec: 11/29/21 11:40 DCW [id number]) Lumbar Spine Range of Motion Lumbar Spine Active Degrees Testing Position Standing Flexion 25 Extension 10 Lateral Flexion Left 59 Lateral Flexion Right 59 Comments Lateral flexion measured in cm from fingertips to floor PT-OP-M Strength Start: 11/29/21 11:01 Freq: Status: Active Protocol: Document 11/29/21 10:30 DCW (Rec: 11/29/21 11:40 DCW [id number]) Hip Strength Hip Manual Muscle Testing Right Flexion (L2) 4 Good Extension (S1) 4+ Good+ Abduction 4- Good- Adduction 4 Good External Rotation 4 Good Internal Rotation 4- Good- Left Flexion (L2) 4 Good Extension (S1) 4+ Good+ Abduction 4- Good- Adduction 4 Good External Rotation 4+ Good+ Internal Rotation 4+ Good+ Knee Strength Knee Manual Muscle Testing Right Flexion (S2) 4 Good Extension (L3) 4- Good- Left Flexion (S2) 4+ Good+ Extension (L3) 4 Good Ankle/Foot Strength Ankle and Foot Manual Muscle Testing Right Dorsiflexion (L4) 3 Fair Plantarflexion (S1) 3 Fair Left Dorsiflexion (L4) 4- Good- Plantarflexion (S1) 3 Fair PT-OP-S Aquatic Treatment Start: 11/29/21 11:26 Freq: Status: Active Protocol: Document 05/28/22 17:08 [facility] (Rec: 05/28/22 17:25 [facility] [id number]) Aquatics Treatment Pool Entry/Exit Pool Entry/Exit Method Stairs Assistance Independent Water Walking Marching Water Level Chest Level Sideways Water Level Chest Level Level of Assistance Verbal Cues Backwards Water Level Chest Level Forwards Water Level Waist Level Level of Assistance Verbal Cues Lower Extremity Exercises knee extension Body Position Standing Equipment 15x B heel/toe raise Body Position Standing Water Level Neck Level Reps/Duration 10x B 4 way hip Details hh on wall prn Body Position Standing Water Level Chest Level Reps/Duration 10 B each Comments cues for postural alignment and core stab Lower Extremity Stretches ITB Details pin and stretch, manual with DTM Body Position Standing Reps/Duration 2x 45 B Comments LLE knee fl/ext during stretch hamstrings Details at wall Body Position Standing Equipment Large Noodle Reps/Duration 2x30 sec ea B quads, hip flexors Details at wall Body Position Standing Equipment Small Noodle Reps/Duration 2 x 45 sec ea B Comments manual assist with knee flexion DKTC/SKTC Details at wall Body Position Standing Reps/Duration 2 x 30 sec each piriformis Details at wall Body Position Sitting Reps/Duration 2 x 30 sec B Spinal Exercises seated marching Details at wall Body Position Sitting Water Level Neck Level Reps/Duration 2 x 1 Min Comments cues for abdominal activation [place] Activities [place] Activities Bicycle,Cross Country,Hip Abduction/Adduction Equipment large noodles Duration 15 Comments minimal bicycle; emphasis on straight leg activities. PT-OP-T Assessment and Plan Start: 11/29/21 11:01 Freq: Status: Active Protocol: Document 05/28/22 17:08 [facility] (Rec: 05/28/22 17:25 [facility] [id number]) Physical Therapy Assessment Rehab Potential Rehabilitation Potential Good Evaluation Complexity Number of Personal Factors/Comorbidities 1-2 Number of Body Systems Impaired 4 or More Clinical Presentation at Evaluation Evolving Impairments Impairments Activity Tolerance,Balance, Functional Activities, Functional Mobility,Gait,Pain, ROM,Soft Tissue Mobility, Strength,Tone Other Concerns Fall Risk Yes - History of multiple falls Goals Three Impairment Lower extremity functional scale 28% Skilled Nursing Goal (LTG) Improve LEFS to at least 70% as measure of improved function. 02/22/22: improved to 43%, goal progress. Feel patient has further potential for improvement 05/28/22: decreased to 38%, hasn't been seen in aquatic PT since 04/18/22, reporting decline in function. LTG Duration 07/17/22 Two Impairment Pt unable to maintain a seated or standing position longer than 30 minutes Skilled Nursing Goal (LTG) Pt to note ability to sit for >60 minutes in order to increase distance he is able to drive without a break 02/22/22: still limited to 30 minutes though with decreased intensity of pain per his report 05/28/22: Standing limited to 15 min, sitting to 20 min, again reporting worsening without aquatic PT. LTG Duration 07/17/22 One Impairment Pt does not have an appropriate aquatic exercise program Skilled Nursing Goal (LTG) Pt to be independent and compliant with an appropriate aquatic exercise program 02/22/22: goal partially met; patient is highly compliant with aquatic exercise program but we are continuing to make modifications for best tolerance and perform manual therapy techniques patient is unable to perform on his own. 05/28/22: good goal progress, but continue to make modifications and progress based on patient status. He was unable to do aquatic exercise independently since last seen due to pool closure, PT vacation and illness. LTG Duration 07/17/22 Assessment Summary Assessment Increased level of pain after no PT session since 04/18/22 due to pool closure and availability of appointments. Recommend further aquatic PT to help him fully achieve his goals and transition to an independent, community based aquatic ex program and HEP. Physical Therapy Plan Frequency and Duration Frequency of Treatment 1x/Week Duration of Treatment 2 months Plan of Care Start Date 04/18/22 Plan of Care End Date 07/17/22 Therapeutic Interventions Therapeutic Interventions Aquatic Therapy,Balance Training,Gait Training,Manual Therapy,Neuromuscular Re- education,Patient/Caregiver Education,Self-Care/Home Management,Therapeutic Activities,Therapeutic Exercises Next Visit Focus/Plan Next Note Type Treatment Note Next Visit Plan Continue aquatic PT per POC to decrease pain and improve patient function and activity tolerance. Instruct in HEP of isometric hip and knee ex, flexibility . Transition toward independent aquatic ex program and self-management of HEP.
--- NOTE | 2022-05-28 14:53 | PT.OPPOC ---
Physical, Occupational & Speech Therapy At [facility] Current Diagnoses Pain in right leg (05/28/22) Pain in left leg (05/28/22) Visit Care Team Role Provider Type Johan Vallejo MD Attending Provider Physician Family Provider Primary Care Provider Referring Provider Specialty: Family Practice Address: [address] [place] [address], [facility] Email: [email or web address] Plan Of Care PT-OP-T Assessment and Plan Start: 11/29/21 11:01 Freq: Status: Active Protocol: Document 05/28/22 17:08 [facility] (Rec: 05/28/22 17:25 [facility] [id number]) Physical Therapy Assessment Rehab Potential Rehabilitation Potential Good Evaluation Complexity Number of Personal Factors/Comorbidities 1-2 Number of Body Systems Impaired 4 or More Clinical Presentation at Evaluation Evolving Impairments Impairments Activity Tolerance,Balance, Functional Activities, Functional Mobility,Gait,Pain, ROM,Soft Tissue Mobility, Strength,Tone Other Concerns Fall Risk Yes - History of multiple falls Goals Three Impairment Lower extremity functional scale 28% [facility] Goal (LTG) Improve LEFS to at least 70% as measure of improved function. 02/22/22: improved to 43%, goal progress. Feel patient has further potential for improvement 05/28/22: decreased to 38%, hasn't been seen in aquatic PT since 04/18/22, reporting decline in function. LTG Duration 07/17/22 Two Impairment Pt unable to maintain a seated or standing position longer than 30 minutes [facility] Goal (LTG) Pt to note ability to sit for >60 minutes in order to increase distance he is able to drive without a break 02/22/22: still limited to 30 minutes though with decreased intensity of pain per his report 05/28/22: Standing limited to 15 min, sitting to 20 min, again reporting worsening without aquatic PT. LTG Duration 07/17/22 One Impairment Pt does not have an appropriate aquatic exercise program [facility] Goal (LTG) Pt to be independent and compliant with an appropriate aquatic exercise program 02/22/22: goal partially met; patient is highly compliant with aquatic exercise program but we are continuing to make modifications for best tolerance and perform manual therapy techniques patient is unable to perform on his own. 05/28/22: good goal progress, but continue to make modifications and progress based on patient status. He was unable to do aquatic exercise independently since last seen due to pool closure, PT vacation and illness. LTG Duration 07/17/22 Assessment Summary Assessment Increased level of pain after no PT session since 04/18/22 due to pool closure and availability of appointments. Recommend further aquatic PT to help him fully achieve his goals and transition to an independent, community based aquatic ex program and HEP. Physical Therapy Plan Frequency and Duration Frequency of Treatment 1x/Week Duration of Treatment 2 months Plan of Care Start Date 04/18/22 Plan of Care End Date 07/17/22 Therapeutic Interventions Therapeutic Interventions Aquatic Therapy,Balance Training,Gait Training,Manual Therapy,Neuromuscular Re- education,Patient/Caregiver Education,Self-Care/Home Management,Therapeutic Activities,Therapeutic Exercises Next Visit Focus/Plan Next Note Type Treatment Note Next Visit Plan Continue aquatic PT per POC to decrease pain and improve patient function and activity tolerance. Instruct in HEP of isometric hip and knee ex, flexibility . Transition toward independent aquatic ex program and self-management of HEP. Plan of Care Dates Plan of Care Start Date 04/18/22 Plan of Care End Date 07/17/22 Electronically Signed by: Janae Orellana, PT 05/30/22 2139 If you are in agreement with this Plan of Care, please return a signed and dated copy. I have reviewed this Plan of Care and certify that the skilled therapy services above are required to meet the patient?s needs. Physician Signature Date Printed Name and Credentials Clinical Instructor Signature Printed Name and Credentials
--- NOTE | 2022-06-18 15:13 | PT.OTN ---
Current Diagnoses Pain in right leg (06/18/22) Pain in left leg (06/18/22) Physical Therapy Treatment Note PT-OP-A Visit Information Start: 11/29/21 11:01 Freq: Status: Active Protocol: Document 06/18/22 14:55 TACHO (Rec: 06/18/22 15:13 LJ [id number]) Out-Patient Physical Therapy Visit Information Visit Information Visit Type Aquatic Treatment Note Visit Start Time 10:15 Visit Stop Time 11:00 Total Visit Minutes 45 Visit Number 14 Number of DRY KILN OPERATOR Visits 1 PT-OP-B Current Condition Start: 11/29/21 11:01 Freq: Status: Active Protocol: Document 11/29/21 10:30 DCW (Rec: 11/29/21 11:14 DCW [id number]) Current Condition History of Current Condition Onset Date Three year history Current Complaints Bilateral leg pain, low back pain History of Current Condition Pt is a 56 year old male presenting with a three year history of pain, gait, and strength issues following a crushing injury to his leg three years ago at work. 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 Pt has experienced right LE pain and numbness since the injury. In the mean time, pt has begun to have fairly extreme low back and left leg pain due to compensatory movement patterns . Pt notes he has gained a lot of weight since his injury, which is making everything a lot harder. Pt only able to sit or stand for ~30 minutes at a time before experiencing too much pain he must change positions, and is really only able to lay prone, as this is the only position he can tolerate for an extended period of time. Pt notes he has fallen multiple times, because when he gets tired, his right leg starts to drag, but he can't feel it, so he will catch it on multiple obstacles. Treatment Goals Patient/Caregiver Goals Pt wants to be able to learn exercises and stretches he can perform in the pool, which allows him to exercise and be active without worrying about compression through his spine or falling due to leg pain PT-OP-C Subjective Start: 11/29/21 11:01 Freq: Status: Active Protocol: Document 06/18/22 14:55 TACHO (Rec: 06/18/22 15:13 LJ [id number]) OP-PT Subjective Patient Comments Patient Comments Back pain not bad. Last week session felt good for a while. PT-OP-D Balance Start: 11/29/21 11:01 Freq: Status: Active Protocol: Document 11/29/21 10:30 DCW (Rec: 11/29/21 11:40 DCW [id number]) Balance Tests Tandem Tandem Standing 30+ bilaterally, but fatigued very quickly PT-OP-G Mobility & Gait Start: 11/29/21 11:01 Freq: Status: Active Protocol: Document 11/29/21 10:30 DCW (Rec: 11/29/21 11:28 DCW [id number]) OP Gait Assessment Gait Gait Assistance Required: Independent Assistive Devices Assistive Device None Gait Deviations General Gait Pattern Antalgic Comments Gait Comments Right antalgia with mild right hip vaulting PT-OP-H Neuro Start: 11/29/21 11:27 Freq: Status: Active Protocol: Document 11/29/21 10:30 DCW (Rec: 11/29/21 11:27 DCW [id number]) Sensation Evaluation Location Details Right Lower Leg Light Touch Absent Sharp/Dull Impaired Deep Pressure Impaired Protective Sensation Absent Proprioception (Position) Absent Kinesthesia (Movement) Impaired PT-OP-K Range of Motion Start: 11/29/21 11:01 Freq: Status: Active Protocol: Document 11/29/21 10:30 DCW (Rec: 11/29/21 11:40 DCW [id number]) Lumbar Spine Range of Motion Lumbar Spine Active Degrees Testing Position Standing Flexion 25 Extension 10 Lateral Flexion Left 59 Lateral Flexion Right 59 Comments Lateral flexion measured in cm from fingertips to floor PT-OP-M Strength Start: 11/29/21 11:01 Freq: Status: Active Protocol: Document 11/29/21 10:30 DCW (Rec: 11/29/21 11:40 DCW [id number]) Hip Strength Hip Manual Muscle Testing Right Flexion (L2) 4 Good Extension (S1) 4+ Good+ Abduction 4- Good- Adduction 4 Good External Rotation 4 Good Internal Rotation 4- Good- Left Flexion (L2) 4 Good Extension (S1) 4+ Good+ Abduction 4- Good- Adduction 4 Good External Rotation 4+ Good+ Internal Rotation 4+ Good+ Knee Strength Knee Manual Muscle Testing Right Flexion (S2) 4 Good Extension (L3) 4- Good- Left Flexion (S2) 4+ Good+ Extension (L3) 4 Good Ankle/Foot Strength Ankle and Foot Manual Muscle Testing Right Dorsiflexion (L4) 3 Fair Plantarflexion (S1) 3 Fair Left Dorsiflexion (L4) 4- Good- Plantarflexion (S1) 3 Fair PT-OP-S Aquatic Treatment Start: 11/29/21 11:26 Freq: Status: Active Protocol: Document 06/18/22 14:55 (Rec: 06/18/22 15:13 [id number]) Aquatics Treatment Pool Entry/Exit Pool Entry/Exit Method Stairs Assistance Independent Water Walking stop/start Level of Assistance Verbal Cues Marching Water Level Chest Level Sideways Water Level Chest Level Backwards Water Level Chest Level Forwards Water Level Waist Level Lower Extremity Stretches ITB Body Position Standing Comments lateral chain with rotational motion hamstrings Details at wall Body Position Standing Equipment Large Noodle Reps/Duration 2x30 sec ea B gastroc, soleus Details on bottom step Body Position Standing Reps/Duration 4 x 45 sec ea B quads, hip flexors Details at wall Body Position Standing Equipment Small Noodle Reps/Duration 2 x 45 sec ea B Comments manual assist with knee flexion piriformis Details at wall Body Position Sitting Reps/Duration 2 x 30 sec B Spinal Exercises torso rotation Details at wall Body Position Sitting Equipment paddles Reps/Duration 10 Comments cues for abdominal activation Railroad Activities Railroad Activities Bicycle Backwards,Cross Country Equipment large noodles Duration 12 Comments minimal bicycle; emphasis on straight leg activities. Manual Techniques [place] gentle passive lateral trunk flexion Aquatic Massage AquaStretch LLE foot, ankle, knee, hip PT-OP-T Assessment and Plan Start: 11/29/21 11:01 Freq: Status: Active Protocol: Document 06/18/22 14:55 TACHO (Rec: 06/18/22 15:13 [id number]) Physical Therapy Assessment Rehab Potential Rehabilitation Potential Good Evaluation Complexity Number of Personal Factors/Comorbidities 1-2 Number of Body Systems Impaired 4 or More Clinical Presentation at Evaluation Evolving Impairments Impairments Activity Tolerance,Balance, Functional Activities, Functional Mobility,Gait,Pain, ROM,Soft Tissue Mobility, Strength,Tone Other Concerns Fall Risk Yes - History of multiple falls Goals Three Impairment Lower extremity functional scale 28% Engine Installer Goal (LTG) Improve LEFS to at least 70% as measure of improved function. 02/22/22: improved to 43%, goal progress. Feel patient has further potential for improvement 05/28/22: decreased to 38%, hasn't been seen in aquatic PT since 04/18/22, reporting decline in function. LTG Duration 07/17/22 Two Impairment Pt unable to maintain a seated or standing position longer than 30 minutes Correction Goal (LTG) Pt to note ability to sit for >60 minutes in order to increase distance he is able to drive without a break 02/22/22: still limited to 30 minutes though with decreased intensity of pain per his report 05/28/22: Standing limited to 15 min, sitting to 20 min, again reporting worsening without aquatic PT. LTG Duration 07/17/22 One Impairment Pt does not have an appropriate aquatic exercise program Engine Installer Goal (LTG) Pt to be independent and compliant with an appropriate aquatic exercise program 02/22/22: goal partially met; patient is highly compliant with aquatic exercise program but we are continuing to make modifications for best tolerance and perform manual therapy techniques patient is unable to perform on his own. 05/28/22: good goal progress, but continue to make modifications and progress based on patient status. He was unable to do aquatic exercise independently since last seen due to pool closure, PT vacation and illness. LTG Duration 07/17/22 Assessment Summary Assessment Pt responded well to AquaStretch technique getting some release of ITB and peroneal muscles. Several LOB with stop start exercise but able to stop with one or two steps. Unable to land on one foot and keep other foot elevated when cued to stop and stand on one foot. He did not use noodles for walking activities during treatment and advised him to not use noodles for balance assist when he comes on his own. Physical Therapy Plan Frequency and Duration Frequency of Treatment 1x/Week Plan of Care Start Date 04/18/22 Plan of Care End Date 07/17/22 Therapeutic Interventions Therapeutic Interventions Aquatic Therapy,Balance Training,Gait Training,Manual Therapy,Neuromuscular Re- education,Patient/Caregiver Education,Self-Care/Home Management,Therapeutic Activities,Therapeutic Exercises Next Visit Focus/Plan Next Note Type Treatment Note Next Visit Plan Continue aquatic PT per POC to decrease pain and improve patient function and activity tolerance. Instruct in HEP of isometric hip and knee ex, flexibility . Transition toward independent aquatic ex program and self-management of HEP.
--- NOTE | 2022-06-25 13:33 | PT.OTN ---
Current Diagnoses Pain in right leg (06/18/22) Pain in left leg (06/18/22) Physical Therapy Treatment Note PT-OP-A Visit Information Start: 11/29/21 11:01 Freq: Status: Active Protocol: Document 06/25/22 13:15 TACHO (Rec: 06/25/22 13:32 LJ [id number]) Out-Patient Physical Therapy Visit Information Visit Information Visit Type Aquatic Treatment Note Visit Start Time 10:15 Visit Stop Time 11:00 Total Visit Minutes 45 Visit Number 15 Number of RESTAURANT AREA DIRECTOR Visits 2 PT-OP-B Current Condition Start: 11/29/21 11:01 Freq: Status: Active Protocol: Document 11/29/21 10:30 DCW (Rec: 11/29/21 11:14 DCW [id number]) Current Condition History of Current Condition Onset Date Three year history Current Complaints Bilateral leg pain, low back pain History of Current Condition Pt is a 56 year old male presenting with a three year history of pain, gait, and strength issues following a crushing injury to his leg three years ago at work. 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 Pt has experienced right LE pain and numbness since the injury. In the mean time, pt has begun to have fairly extreme low back and left leg pain due to compensatory movement patterns . Pt notes he has gained a lot of weight since his injury, which is making everything a lot harder. Pt only able to sit or stand for ~30 minutes at a time before experiencing too much pain he must change positions, and is really only able to lay prone, as this is the only position he can tolerate for an extended period of time. Pt notes he has fallen multiple times, because when he gets tired, his right leg starts to drag, but he can't feel it, so he will catch it on multiple obstacles. Treatment Goals Patient/Caregiver Goals Pt wants to be able to learn exercises and stretches he can perform in the pool, which allows him to exercise and be active without worrying about compression through his spine or falling due to leg pain PT-OP-C Subjective Start: 11/29/21 11:01 Freq: Status: Active Protocol: Document 06/25/22 13:15 TACOH (Rec: 06/25/22 13:32 LJ [id number]) OP-PT Subjective Patient Comments Patient Comments Still c/o pain in left knee and ankle area. States his back is tight but not painful today. PT-OP-D Balance Start: 11/29/21 11:01 Freq: Status: Active Protocol: Document 11/29/21 10:30 DCW (Rec: 11/29/21 11:40 DCW [id number]) Balance Tests Tandem Tandem Standing 30+ bilaterally, but fatigued very quickly PT-OP-G Mobility & Gait Start: 11/29/21 11:01 Freq: Status: Active Protocol: Document 11/29/21 10:30 DCW (Rec: 11/29/21 11:28 DCW [id number]) OP Gait Assessment Gait Gait Assistance Required: Independent Assistive Devices Assistive Device None Gait Deviations General Gait Pattern Antalgic Comments Gait Comments Right antalgia with mild right hip vaulting PT-OP-H Neuro Start: 11/29/21 11:27 Freq: Status: Active Protocol: Document 11/29/21 10:30 DCW (Rec: 11/29/21 11:27 DCW [id number]) Sensation Evaluation Location Details Right Lower Leg Light Touch Absent Sharp/Dull Impaired Deep Pressure Impaired Protective Sensation Absent Proprioception (Position) Absent Kinesthesia (Movement) Impaired PT-OP-K Range of Motion Start: 11/29/21 11:01 Freq: Status: Active Protocol: Document 11/29/21 10:30 DCW (Rec: 11/29/21 11:40 DCW [id number]) Lumbar Spine Range of Motion Lumbar Spine Active Degrees Testing Position Standing Flexion 25 Extension 10 Lateral Flexion Left 59 Lateral Flexion Right 59 Comments Lateral flexion measured in cm from fingertips to floor PT-OP-M Strength Start: 11/29/21 11:01 Freq: Status: Active Protocol: Document 11/29/21 10:30 DCW (Rec: 11/29/21 11:40 DCW [id number]) Hip Strength Hip Manual Muscle Testing Right Flexion (L2) 4 Good Extension (S1) 4+ Good+ Abduction 4- Good- Adduction 4 Good External Rotation 4 Good Internal Rotation 4- Good- Left Flexion (L2) 4 Good Extension (S1) 4+ Good+ Abduction 4- Good- Adduction 4 Good External Rotation 4+ Good+ Internal Rotation 4+ Good+ Knee Strength Knee Manual Muscle Testing Right Flexion (S2) 4 Good Extension (L3) 4- Good- Left Flexion (S2) 4+ Good+ Extension (L3) 4 Good Ankle/Foot Strength Ankle and Foot Manual Muscle Testing Right Dorsiflexion (L4) 3 Fair Plantarflexion (S1) 3 Fair Left Dorsiflexion (L4) 4- Good- Plantarflexion (S1) 3 Fair PT-OP-S Aquatic Treatment Start: 11/29/21 11:26 Freq: Status: Active Protocol: Document 06/25/22 13:15 TACHO (Rec: 06/25/22 13:32 [id number]) Aquatics Treatment Pool Entry/Exit Pool Entry/Exit Method Stairs Assistance Independent Water Walking Lunge Walk Water Level Waist Level [place] Water Level Chest Level Monster Walk Water Level Chest Level Heel Walk Water Level Chest Level Level of Assistance Verbal Cues Comments cues to avoid stomping Marching Water Level Chest Level Sideways Water Level Chest Level Backwards Water Level Chest Level Forwards Water Level Waist Level Lower Extremity Exercises 4 way hip Details hh on wall prn Body Position Standing Water Level Chest Level Reps/Duration 15 B each Comments cues for increased effort Lower Extremity Stretches hamstrings Details at wall Body Position Standing Equipment Large Noodle Reps/Duration 2x30 sec ea B gastroc, soleus Details on bottom step Body Position Standing Reps/Duration 4 x 45 sec ea B quads, hip flexors Details at wall Body Position Standing Equipment Small Noodle Reps/Duration 2 x 45 sec ea B Comments manual assist with knee flexion piriformis Details at wall Body Position Sitting Reps/Duration 2 x 30 sec B Comments better tolerance Spinal Exercises seated marching Details at wall Body Position Sitting Water Level Neck Level Reps/Duration 2 x 1 Min Comments cues for abdominal activation; ball btwn knees trunk extension Body Position Standing Water Level [place] Equipment noodles (2) Reps/Duration 30 x 2 Comments pool edge torso rotation Details at wall Body Position Sitting Equipment paddles Reps/Duration 15 Comments cues for abdominal activation [place] Activities [place] Activities Bicycle,Bicycle Backwards, Cross Country,Hip Abduction/ Adduction,Sit Kicks Other Activities flutter kick at wall pendulum kick backs at wall Equipment large noodles; green fins Duration 15 Manual Techniques Aquatic Massage AquaStretch LLE foot, ankle, knee for release of fascial adhesions of peroneal mms and ITB LLE PT-OP-T Assessment and Plan Start: 11/29/21 11:01 Freq: Status: Active Protocol: Document 06/25/22 13:15 TACHO (Rec: 06/25/22 13:32 TACHO [id number]) Physical Therapy Assessment Rehab Potential Rehabilitation Potential Good Evaluation Complexity Number of Personal Factors/Comorbidities 1-2 Number of Body Systems Impaired 4 or More Clinical Presentation at Evaluation Evolving Impairments Impairments Activity Tolerance,Balance, Functional Activities, Functional Mobility,Gait,Pain, ROM,Soft Tissue Mobility, Strength,Tone Other Concerns Fall Risk Yes - History of multiple falls Goals Three Impairment Lower extremity functional scale 28% Group Home Goal (LTG) Improve LEFS to at least 70% as measure of improved function. 02/22/22: improved to 43%, goal progress. Feel patient has further potential for improvement 05/28/22: decreased to 38%, hasn't been seen in aquatic PT since 04/18/22, reporting decline in function. LTG Duration 07/17/22 Two Impairment Pt unable to maintain a seated or standing position longer than 30 minutes Group Home Goal (LTG) Pt to note ability to sit for >60 minutes in order to increase distance he is able to drive without a break 02/22/22: still limited to 30 minutes though with decreased intensity of pain per his report 05/28/22: Standing limited to 15 min, sitting to 20 min, again reporting worsening without aquatic PT. LTG Duration 07/17/22 One Impairment Pt does not have an appropriate aquatic exercise program Civil Engineering Professional Goal (LTG) Pt to be independent and compliant with an appropriate aquatic exercise program 02/22/22: goal partially met; patient is highly compliant with aquatic exercise program but we are continuing to make modifications for best tolerance and perform manual therapy techniques patient is unable to perform on his own. 05/28/22: good goal progress, but continue to make modifications and progress based on patient status. He was unable to do aquatic exercise independently since last seen due to pool closure, PT vacation and illness. LTG Duration 07/17/22 Assessment Summary Assessment Pt willing to increase effort with LE exercises however little noted. In deep water pt was given green resistance fins to trial response to progression of exercises, particularly long lever ones. Pt was offered a tennis ball to continue with self-massage of ITB post session which he used for a few minutes. He had no complaint with pain using fins for 15 min in deep water. Continue to progress strengthening and flexibility for improved function. Physical Therapy Plan Frequency and Duration Frequency of Treatment 1x/Week Plan of Care Start Date 04/18/22 Plan of Care End Date 07/17/22 Therapeutic Interventions Therapeutic Interventions Aquatic Therapy,Balance Training,Gait Training,Manual Therapy,Neuromuscular Re- education,Patient/Caregiver Education,Self-Care/Home Management,Therapeutic Activities,Therapeutic Exercises Next Visit Focus/Plan Next Note Type Treatment Note Next Visit Plan Continue aquatic PT per POC to decrease pain and improve patient function and activity tolerance. Assess response to increased resistance and proceed as indicated. Transition toward independent aquatic ex program and self- management of HEP.
--- NOTE | 2022-06-25 13:33 | PT.OTN ---
Current Diagnoses Pain in right leg (06/18/22) Pain in left leg (06/18/22) Physical Therapy Treatment Note PT-OP-A Visit Information Start: 11/29/21 11:01 Freq: Status: Active Protocol: Document 06/25/22 13:15 TACHO (Rec: 06/25/22 13:32 LJ [id number]) Out-Patient Physical Therapy Visit Information Visit Information Visit Type Aquatic Treatment Note Visit Start Time 10:15 Visit Stop Time 11:00 Total Visit Minutes 45 Visit Number 15 Number of LOCKSTITCH WAISTLINE JOINER Visits 2 PT-OP-B Current Condition Start: 11/29/21 11:01 Freq: Status: Active Protocol: Document 11/29/21 10:30 DCW (Rec: 11/29/21 11:14 DCW [id number]) Current Condition History of Current Condition Onset Date Three year history Current Complaints Bilateral leg pain, low back pain History of Current Condition Pt is a 56 year old male presenting with a three year history of pain, gait, and strength issues following a crushing injury to his leg three years ago at work. 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 Pt has experienced right LE pain and numbness since the injury. In the mean time, pt has begun to have fairly extreme low back and left leg pain due to compensatory movement patterns . Pt notes he has gained a lot of weight since his injury, which is making everything a lot harder. Pt only able to sit or stand for ~30 minutes at a time before experiencing too much pain he must change positions, and is really only able to lay prone, as this is the only position he can tolerate for an extended period of time. Pt notes he has fallen multiple times, because when he gets tired, his right leg starts to drag, but he can't feel it, so he will catch it on multiple obstacles. Treatment Goals Patient/Caregiver Goals Pt wants to be able to learn exercises and stretches he can perform in the pool, which allows him to exercise and be active without worrying about compression through his spine or falling due to leg pain PT-OP-C Subjective Start: 11/29/21 11:01 Freq: Status: Active Protocol: Document 06/25/22 13:15 TACHO (Rec: 06/25/22 13:32 LJ [id number]) OP-PT Subjective Patient Comments Patient Comments Still c/o pain in left knee and ankle area. States his back is tight but not painful today. PT-OP-D Balance Start: 11/29/21 11:01 Freq: Status: Active Protocol: Document 11/29/21 10:30 DCW (Rec: 11/29/21 11:40 DCW [id number]) Balance Tests Tandem Tandem Standing 30+ bilaterally, but fatigued very quickly PT-OP-G Mobility & Gait Start: 11/29/21 11:01 Freq: Status: Active Protocol: Document 11/29/21 10:30 DCW (Rec: 11/29/21 11:28 DCW [id number]) OP Gait Assessment Gait Gait Assistance Required: Independent Assistive Devices Assistive Device None Gait Deviations General Gait Pattern Antalgic Comments Gait Comments Right antalgia with mild right hip vaulting PT-OP-H Neuro Start: 11/29/21 11:27 Freq: Status: Active Protocol: Document 11/29/21 10:30 DCW (Rec: 11/29/21 11:27 DCW [id number]) Sensation Evaluation Location Details Right Lower Leg Light Touch Absent Sharp/Dull Impaired Deep Pressure Impaired Protective Sensation Absent Proprioception (Position) Absent Kinesthesia (Movement) Impaired PT-OP-K Range of Motion Start: 11/29/21 11:01 Freq: Status: Active Protocol: Document 11/29/21 10:30 DCW (Rec: 11/29/21 11:40 DCW [id number]) Lumbar Spine Range of Motion Lumbar Spine Active Degrees Testing Position Standing Flexion 25 Extension 10 Lateral Flexion Left 59 Lateral Flexion Right 59 Comments Lateral flexion measured in cm from fingertips to floor PT-OP-M Strength Start: 11/29/21 11:01 Freq: Status: Active Protocol: Document 11/29/21 10:30 DCW (Rec: 11/29/21 11:40 DCW [id number]) Hip Strength Hip Manual Muscle Testing Right Flexion (L2) 4 Good Extension (S1) 4+ Good+ Abduction 4- Good- Adduction 4 Good External Rotation 4 Good Internal Rotation 4- Good- Left Flexion (L2) 4 Good Extension (S1) 4+ Good+ Abduction 4- Good- Adduction 4 Good External Rotation 4+ Good+ Internal Rotation 4+ Good+ Knee Strength Knee Manual Muscle Testing Right Flexion (S2) 4 Good Extension (L3) 4- Good- Left Flexion (S2) 4+ Good+ Extension (L3) 4 Good Ankle/Foot Strength Ankle and Foot Manual Muscle Testing Right Dorsiflexion (L4) 3 Fair Plantarflexion (S1) 3 Fair Left Dorsiflexion (L4) 4- Good- Plantarflexion (S1) 3 Fair PT-OP-S Aquatic Treatment Start: 11/29/21 11:26 Freq: Status: Active Protocol: Document 06/25/22 13:15 TACHO (Rec: 06/25/22 13:32 [id number]) Aquatics Treatment Pool Entry/Exit Pool Entry/Exit Method Stairs Assistance Independent Water Walking Lunge Walk Water Level Waist Level [place] Water Level Chest Level Monster Walk Water Level Chest Level Heel Walk Water Level Chest Level Level of Assistance Verbal Cues Comments cues to avoid stomping Marching Water Level Chest Level Sideways Water Level Chest Level Backwards Water Level Chest Level Forwards Water Level Waist Level Lower Extremity Exercises 4 way hip Details hh on wall prn Body Position Standing Water Level Chest Level Reps/Duration 15 B each Comments cues for increased effort Lower Extremity Stretches hamstrings Details at wall Body Position Standing Equipment Large Noodle Reps/Duration 2x30 sec ea B gastroc, soleus Details on bottom step Body Position Standing Reps/Duration 4 x 45 sec ea B quads, hip flexors Details at wall Body Position Standing Equipment Small Noodle Reps/Duration 2 x 45 sec ea B Comments manual assist with knee flexion piriformis Details at wall Body Position Sitting Reps/Duration 2 x 30 sec B Comments better tolerance Spinal Exercises seated marching Details at wall Body Position Sitting Water Level Neck Level Reps/Duration 2 x 1 Min Comments cues for abdominal activation; ball btwn knees trunk extension Body Position Standing Water Level [place] Equipment noodles (2) Reps/Duration 30 x 2 Comments pool edge torso rotation Details at wall Body Position Sitting Equipment paddles Reps/Duration 15 Comments cues for abdominal activation [place] Activities [place] Activities Bicycle,Bicycle Backwards, Cross Country,Hip Abduction/ Adduction,Sit Kicks Other Activities flutter kick at wall pendulum kick backs at wall Equipment large noodles; green fins Duration 15 Manual Techniques Aquatic Massage AquaStretch LLE foot, ankle, knee for release of fascial adhesions of peroneal mms and ITB LLE PT-OP-T Assessment and Plan Start: 11/29/21 11:01 Freq: Status: Active Protocol: Document 06/25/22 13:15 TACHO (Rec: 06/25/22 13:32 TACHO [id number]) Physical Therapy Assessment Rehab Potential Rehabilitation Potential Good Evaluation Complexity Number of Personal Factors/Comorbidities 1-2 Number of Body Systems Impaired 4 or More Clinical Presentation at Evaluation Evolving Impairments Impairments Activity Tolerance,Balance, Functional Activities, Functional Mobility,Gait,Pain, ROM,Soft Tissue Mobility, Strength,Tone Other Concerns Fall Risk Yes - History of multiple falls Goals Three Impairment Lower extremity functional scale 28% Fpc Goal (LTG) Improve LEFS to at least 70% as measure of improved function. 02/22/22: improved to 43%, goal progress. Feel patient has further potential for improvement 05/28/22: decreased to 38%, hasn't been seen in aquatic PT since 04/18/22, reporting decline in function. LTG Duration 07/17/22 Two Impairment Pt unable to maintain a seated or standing position longer than 30 minutes Fpc Goal (LTG) Pt to note ability to sit for >60 minutes in order to increase distance he is able to drive without a break 02/22/22: still limited to 30 minutes though with decreased intensity of pain per his report 05/28/22: Standing limited to 15 min, sitting to 20 min, again reporting worsening without aquatic PT. LTG Duration 07/17/22 One Impairment Pt does not have an appropriate aquatic exercise program Twister Operator Goal (LTG) Pt to be independent and compliant with an appropriate aquatic exercise program 02/22/22: goal partially met; patient is highly compliant with aquatic exercise program but we are continuing to make modifications for best tolerance and perform manual therapy techniques patient is unable to perform on his own. 05/28/22: good goal progress, but continue to make modifications and progress based on patient status. He was unable to do aquatic exercise independently since last seen due to pool closure, PT vacation and illness. LTG Duration 07/17/22 Assessment Summary Assessment Pt willing to increase effort with LE exercises however little noted. In deep water pt was given green resistance fins to trial response to progression of exercises, particularly long lever ones. Pt was offered a tennis ball to continue with self-massage of ITB post session which he used for a few minutes. He had no complaint with pain using fins for 15 min in deep water. Continue to progress strengthening and flexibility for improved function. Physical Therapy Plan Frequency and Duration Frequency of Treatment 1x/Week Plan of Care Start Date 04/18/22 Plan of Care End Date 07/17/22 Therapeutic Interventions Therapeutic Interventions Aquatic Therapy,Balance Training,Gait Training,Manual Therapy,Neuromuscular Re- education,Patient/Caregiver Education,Self-Care/Home Management,Therapeutic Activities,Therapeutic Exercises Next Visit Focus/Plan Next Note Type Treatment Note Next Visit Plan Continue aquatic PT per POC to decrease pain and improve patient function and activity tolerance. Assess response to increased resistance and proceed as indicated. Transition toward independent aquatic ex program and self- management of HEP.
--- NOTE | 2023-03-20 09:15 | PT.OPDS ---
Current Diagnoses Pain in right leg (06/25/22) Pain in left leg (06/25/22) Visit Care Team Role Provider Type Johan Vallejo MD Attending Provider Physician Family Provider Primary Care Provider Referring Provider Specialty: Family Practice Address: [address] [place] [address], [facility] Email: [email or web address] Visit Number Visit Number [id number] Discharge Summary PT-OP-B Current Condition Start: 11/29/21 11:01 Freq: Status: Active Protocol: Document 11/29/21 10:30 DCW (Rec: 11/29/21 11:14 DCW [id number]) Current Condition History of Current Condition Onset Date Three year history Current Complaints Bilateral leg pain, low back pain History of Current Condition Pt is a 56 year old male presenting with a three year history of pain, gait, and strength issues following a crushing injury to his leg three years ago at work. 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 Pt has experienced right LE pain and numbness since the injury. In the mean time, pt has begun to have fairly extreme low back and left leg pain due to compensatory movement patterns . Pt notes he has gained a lot of weight since his injury, which is making everything a lot harder. Pt only able to sit or stand for ~30 minutes at a time before experiencing too much pain he must change positions, and is really only able to lay prone, as this is the only position he can tolerate for an extended period of time. Pt notes he has fallen multiple times, because when he gets tired, his right leg starts to drag, but he can't feel it, so he will catch it on multiple obstacles. Treatment Goals Patient/Caregiver Goals Pt wants to be able to learn exercises and stretches he can perform in the pool, which allows him to exercise and be active without worrying about compression through his spine or falling due to leg pain PT-OP-C Subjective Start: 11/29/21 11:01 Freq: Status: Active Protocol: Document 06/25/22 13:15 LJ (Rec: 06/25/22 13:32 LJ [id number]) OP-PT Subjective Patient Comments Patient Comments Still c/o pain in left knee and ankle area. States his back is tight but not painful today. PT-OP-D Balance Start: 11/29/21 11:01 Freq: Status: Active Protocol: Document 11/29/21 10:30 DCW (Rec: 11/29/21 11:40 DCW [id number]) Balance Tests Tandem Tandem Standing 30+ bilaterally, but fatigued very quickly PT-OP-G Mobility & Gait Start: 11/29/21 11:01 Freq: Status: Active Protocol: Document 11/29/21 10:30 DCW (Rec: 11/29/21 11:28 DCW [id number]) OP Gait Assessment Gait Gait Assistance Required: Independent Assistive Devices Assistive Device None Gait Deviations General Gait Pattern Antalgic Comments Gait Comments Right antalgia with mild right hip vaulting PT-OP-H Neuro Start: 11/29/21 11:27 Freq: Status: Active Protocol: Document 11/29/21 10:30 DCW (Rec: 11/29/21 11:27 DCW [id number]) Sensation Evaluation Location Details Right Lower Leg Light Touch Absent Sharp/Dull Impaired Deep Pressure Impaired Protective Sensation Absent Proprioception (Position) Absent Kinesthesia (Movement) Impaired PT-OP-K Range of Motion Start: 11/29/21 11:01 Freq: Status: Active Protocol: Document 11/29/21 10:30 DCW (Rec: 11/29/21 11:40 DCW [id number]) Lumbar Spine Range of Motion Lumbar Spine Active Degrees Testing Position Standing Flexion 25 Extension 10 Lateral Flexion Left 59 Lateral Flexion Right 59 Comments Lateral flexion measured in cm from fingertips to floor PT-OP-M Strength Start: 11/29/21 11:01 Freq: Status: Active Protocol: Document 11/29/21 10:30 DCW (Rec: 11/29/21 11:40 DCW [id number]) Hip Strength Hip Manual Muscle Testing Right Flexion (L2) 4 Good Extension (S1) 4+ Good+ Abduction 4- Good- Adduction 4 Good External Rotation 4 Good Internal Rotation 4- Good- Left Flexion (L2) 4 Good Extension (S1) 4+ Good+ Abduction 4- Good- Adduction 4 Good External Rotation 4+ Good+ Internal Rotation 4+ Good+ Knee Strength Knee Manual Muscle Testing Right Flexion (S2) 4 Good Extension (L3) 4- Good- Left Flexion (S2) 4+ Good+ Extension (L3) 4 Good Ankle/Foot Strength Ankle and Foot Manual Muscle Testing Right Dorsiflexion (L4) 3 Fair Plantarflexion (S1) 3 Fair Left Dorsiflexion (L4) 4- Good- Plantarflexion (S1) 3 Fair PT-OP-T Assessment and Plan Start: 11/29/21 11:01 Freq: Status: Active Protocol: Document 03/20/23 09:14 JODI (Rec: 03/20/23 09:15 [facility] [id number]) Physical Therapy Plan Discharge Physical Therapy Discharge Reasons No Longer Attending PT
== END 2023-04-26 15:40 ==
LOC: PHYS 10:15
PROVIDERS: Family Provider Family Medicine; PCP Family Medicine; Referring Provider Family Medicine; Visit Provider Family Medicine
DX: M79.604 Pain in right leg (principal); M79.605 Pain in left leg
CPT/HCPCS: 97113; 97162

== ENCOUNTER 2022-07-26 16:06 | Emergency (ER) | payer OTHER, MEDICAID, SELFPAY ==
[2021-11-16 08:53] VITALS: BMI 39.4
[2022-07-26] VITALS (10 sets, daily range): BP systolic 150–173; BP diastolic 81–96; PULSE 50–68; RESP 18; TEMP 36.7; O2SAT 94–100; BMI 40.6
[2022-07-26 17:50] LABS: Add Manual Diff / Slide Review NO; Basophils Absolute Auto 100 /uL (0-100); Basophils Percent Auto 0.8 % (0-2); Eosinophils Absolute Auto 100 /uL (0-450); Hematocrit 42.5 % (41-53); Hemoglobin 14.3 g/dL (13.5-17.5); Lymphocytes Absolute Auto 2300 /uL (1100-4500); Lymphocytes Percent Auto 31.9 % (25-40); Mean Corpuscular HGB Conc 33.8 % (30-36); Mean Corpuscular Volume 85.7 fL (80-100); Monocytes Absolute Auto 800 /uL (0-900); Monocytes Percent Auto 10.8 % (3-14); Neutrophils Absolute Auto 3900 /uL (1500-7000); Neutrophils Percent Auto 54.5 % (50-75); Platelet Count 231 X10^3/uL (150-400); Red Blood Cell Count 4.95 X10^6/uL (4.5-5.9); Red Cell Distribution Width 13.9 % (11.6-14.8); White Blood Cell Count 7.2 X10^3/uL (4.5-11.0)
[2022-07-26 17:56] LABS: Alanine Aminotransferase 43 IU/L (<50); Albumin 4.4 g/dL (3.5-5.0); Albumin Globulin Ratio 1.4 (1.0-2.8); Alkaline Phosphatase 42 U/L (38-126); Aspartate Aminotransferase 27 IU/L (17-59); BUN Creatinine Ratio 17.8 (6-22); Bilirubin Total 0.4 mg/dL (0.2-1.3); Blood Urea Nitrogen 13 mg/dL (9-20); Calcium 8.9 mg/dL (8.4-10.2); Carbon Dioxide 28 mmol/L (22-32); Chloride 104 mmol/L (98-107); Estimated Glomerular Filt Rate > 60 mL/min (>60); Globulin 3.2 g/dL (1.7-4.1); Glucose 86 mg/dL (70-100); HEMOLYSIS 24 (0-50); Lactate (Lactic Acid) 0.7 mmol/L (0.7-2.1); Sodium 138 mmol/L (137-145); Total Protein 7.6 g/dL (6.3-8.2)
--- NOTE | 2022-07-26 19:34 | PC.NURSE ---
Patient c/o feeling sick for upwards of a month with severe heads, fatigue, neck pain, and grumpiness. Recently finished 10 days of antibiotics from dentist for broken teeth.
--- NOTE | 2022-07-26 20:45 | DI.CT.S_ITS ---
PROCEDURE: CT HEAD/BRAIN WO CON INDICATIONS: Headache TECHNIQUE: Noncontrast 4.5 mm thick angled axial sections acquired from the foramen magnum to the vertex, with coronal and sagittal reformats. For radiation dose reduction, the following was used: automated exposure control, adjustment of mA and/or kV according to patient size. COMPARISON: None. FINDINGS: Image quality: Excellent. CSF spaces: Basal cisterns are patent. No extra-axial fluid collections. Ventricles are normal in size and shape. Brain: No intracranial hemorrhage, mass, or mass effect. Shaw-white matter interface appears preserved. Skull and face: Calvarium and visualized facial bones are intact, without suspicious lesions. Sinuses: Visualized sinuses and mastoids are clear. IMPRESSION: 1. No acute intracranial abnormality. Dictated by: Maicol Burden M.D. on 07/26/2022 at 21:35 Approved by: Maicol Burden M.D. on 07/26/2022 at 21:37
--- NOTE | 2022-07-26 20:46 | ED.DENTAL ---
HPI - Dental/Oral General Chief complaint: Dental/Oral Stated complaint: possible blood infection from tooth Time Seen by Provider: 07/26/22 20:34 Source: patient Mode of arrival: Ambulatory History of Present Illness HPI Narrative: Patient here with spouse. Complains of ongoing left upper half teeth pain and tooth #20. Pain at the bottom left. Saw by primary care Dr. Cooper in the past couple weeks and placed on 10 days of antibiotics. Just finished today. Headache has been part of the problem even while he saw primary care a couple weeks ago. However blood pressure elevation is new for patient. Patient has not been taking ibuprofen. No history of high blood pressure. Headache is 5/10. Not worst of life but is constant. It is forehead top of the head. No history of migraine headaches. Patient did call primary care office and was informed to come to the ER. Denies any chest pain. Has had weakness of the knees which is not due secondary to injury to his knees in the past. Has had off and on dizziness though. No slurred speech facial droop. No unilateral weakness. Fast exam is negative. Related Data Previous Rx's Medication Instructions Recorded fluoxetine 60 mg tablet 60 mg PO DAILY #90 tabs 02/15/22 gabapentin 300 mg capsule 300 mg PO TID PRN pain #270 caps 02/15/22 lidocaine 5 % topical patch 1 patch topical DAILY PRN pain #15 02/15/22 ea amoxicillin 875 mg-potassium 1 tab PO BID #20 tabs 07/12/22 clavulanate 125 mg tablet lisinopril 10 mg tablet 10 mg PO DAILY #30 tabs 07/26/22 Allergies Allergy/AdvReac Type Severity Reaction Status Date / Time No Known Drug Allergies Allergy Verified 02/15/22 08:27 Review of Systems Review of Systems Narrative: GENERAL: Denies chills, fatigue, malaise, fever, sweats. HEENT: Denies sinus pain, ear pain, sore throat, positive dental pain RESPIRATORY: Denies dyspnea, cough CARDIOVASCULAR: Denies chest pain, palpitations GASTROINTESTINAL: Denies nausea, vomiting, abdominal pain : Denies dysuria, frequency, hematuria MUSCULOSKELETAL: denies muscle positive bony pain SKIN: Denies rash, skin lesions NEUROLOGIC: Denies weakness, numbness, positive headache, negative slurred speech facial droop ROS Unobtainable: All systems reviewed & are unremarkable except as noted in HPI and below Patient History Medical History Bilateral primary osteoarthritis of knee Depression Fatigue due to sleep pattern disturbance History of snoring HTN (hypertension) Lumbar spondylosis Morbid obesity with body mass index (BMI) of 40.0 to 49.9 Neuroforaminal stenosis of lumbar spine Obstructive sleep apnea, adult Radicular low back pain Strangulated umbilical hernia Tinnitus Surgical History H/O umbilical hernia repair No pertinent past surgical history Family History Mother Macular degeneration Father Heart valve disease Sister Malignant hypertension Social History household members: spouse Smoking Status: Never smoker Smoking Status: Never smoker alcohol intake frequency: holidays/special occasions only Substance Use Type: does not use Exam Narrative Exam Narrative: GENERAL: in no distress, not toxic not dyspneic HEAD: Normocephalic. EYES: Pupils equal round No scleral icterus. ENT: Mucous membranes moist. Oral exam, diffuse tenderness in the left upper half of the teeth. No palpable abscess. No gum edema erythema. No facial swelling. No trismus malocclusion no tongue elevation. No drooling. Tooth 20. There is lateral fracture. However no gum edema erythema palpable abscess in the lower teeth. On the left side. EYES: Pupils are equal, round, and reactive to light and accommodation. Extraoccular muscles are intact bilaterally. NECK: Trachea midline. CARDIOVASCULAR: Regular rate and rhythm without murmurs RESPIRATORY: Clear to auscultation. Breath sounds equal bilaterally. No wheezes, rales, or rhonchi. GASTROINTESTINAL: Abdomen soft, non-tender EXTREMITIES: No gross deformities. BACK: No flank tenderness. NEURO: AOx4. Clear speech no facial droop negative pronator drift. Strong equal anesthesiology medical doctor. Light touch intact bilateral face and hands. SKIN: Warm and dry PSYCH: Not anxious, is cooperative Initial Vital Signs Initial Vital Signs: Vital Signs Temperature 98.1 F 07/26/22 16:24 Pulse Rate 61 07/26/22 16:24 Respiratory Rate 18 07/26/22 16:24 Blood Pressure 168/81 H 07/26/22 16:24 Pulse Oximetry 97 07/26/22 16:24 Oxygen Delivery Method 07/26/22 16:24 Course Course Course Narrative: No new issues during course of stay Orders Ordered: ED Orders 07/26/22 17:33 Complete Blood Count AUTO DIFF Stat Comprehensive Metabolic Panel Stat Lactate (Lactic Acid) Stat 07/26/22 20:45 CT head/brain wo con Stat 07/26/22 21:00 Blood Culture Stat Discontinued Medications Lisinopril (Lisinopril 10 Mg Tablet) 10 mg PO NOW ONE Stop: 07/26/22 20:46 Last Admin: 07/26/22 20:57 Dose: 10 mg Documented By: RL Reevaluation(s) Reevaluation #1: Patient states feels much better after blood pressure medication improvement with medication. Blood pressure 152/86. Heart rate 55. Patient desires discharge home. Reviewed results with patient and . He is feeling much better. Time: 22:37 Vital Signs Vital signs: Vital Signs - 8 hr 07/26/22 19:32 07/26/22 19:32 07/26/22 20:00 Pulse Rate 68 52 L Blood Pressure 173/96 H Pulse Oximetry 96 97 07/26/22 20:30 07/26/22 20:55 07/26/22 20:55 Pulse Rate 58 L 55 L Blood Pressure 162/89 H Pulse Oximetry 96 95 07/26/22 21:00 07/26/22 21:00 07/26/22 21:31 Pulse Rate 58 L Blood Pressure 151/95 H Pulse Oximetry 94 100 07/26/22 21:32 07/26/22 21:32 07/26/22 21:55 Pulse Rate 54 L 50 L Blood Pressure 150/83 H Pulse Oximetry 96 95 07/26/22 21:55 07/26/22 22:00 Pulse Rate 55 L Blood Pressure 152/86 H Pulse Oximetry 95 MDM - Dental/Oral Differential Diagnosis Differential diagnosis: Likely gingival abscess, dental caries, toothache, dental abscess, fracture of tooth and other (Hypertension) Lab Data Result diagrams: 07/26/22 17:33 07/26/22 17:33 Labs: Lab Results 07/26/22 07/26/22 07/26/22 Range/Units 17:33 17:33 17:33 WBC 7.2 (4.5-11.0) X10^3/uL RBC 4.95 (4.5-5.9) X10^6/uL Hgb 14.3 (13.5-17.5) g/dL Hct 42.5 (41-53) % MCV 85.7 (80-100) fL MCH 29.0 (26-34) PG MCHC 33.8 (30-36) % RDW 13.9 (11.6-14.8) % Plt Count 231 (150-400) X10^3/uL Neut % (Auto) 54.5 (50-75) % Lymph % (Auto) 31.9 (25-40) % [place] % (Auto) 10.8 (3-14) % Eos % (Auto) 2.0 (2-4) % Baso % (Auto) 0.8 (0-2) % Neut # (Auto) 3900 (1742-3262) /uL Lymph # (Auto) 2300 (5704-4128) /uL [place] # (Auto) 800 (0-900) /uL Eos # (Auto) 100 (0-450) /uL Baso # (Auto) 100 (0-100) /uL Sodium 138 (137-145) mmol/L Potassium 4.0 (3.4-5.1) mmol/L Chloride 104 (98-107) mmol/L Carbon Dioxide 28 (22-32) mmol/L BUN 13 (9-20) mg/dL Creatinine 0.73 (0.66-1.25) mg/dL Estimated GFR > 60 (>60) mL/min BUN/Creatinine Ratio 17.8 (6-22) Glucose 86 (70-100) mg/dL Lactate 0.7 (0.7-2.1) mmol/L Calcium 8.9 (8.4-10.2) mg/dL Total Bilirubin 0.4 (0.2-1.3) mg/dL AST 27 (17-59) IU/L ALT 43 (<50) IU/L Alkaline Phosphatase 42 (38-126) U/L Total Protein 7.6 (6.3-8.2) g/dL Albumin 4.4 (3.5-5.0) g/dL Globulin 3.2 (1.7-4.1) g/dL Albumin/Globulin Ratio 1.4 (1.0-2.8) Imaging Data CT scan - head: Radiologist's Impression: [address] [address] [address] Scan Report Signed Patient: Jamison Spears MR#: [id number] : 1965 Acct:[id number] Age/Sex: 56 / M Date of Service: 07/26/22 Loc: ED Accession Number: [id number] ?? Procedure: CT head/brain wo con Ordering Provider: Ricardo Goldman MD PROCEDURE:? CT HEAD/BRAIN WO CON ? INDICATIONS:? Headache ? TECHNIQUE:? Noncontrast 4.5 mm thick angled axial sections acquired from the foramen magnum to the vertex, with coronal and sagittal reformats.? For radiation dose reduction, the following was used:? automated exposure control, adjustment of mA and/or kV according to patient size.? ? COMPARISON:? None. ? FINDINGS:? Image quality:? Excellent.? ? CSF spaces:? Basal cisterns are patent.? No extra-axial fluid collections.? Ventricles are normal in size and shape.? ? Brain:? No intracranial hemorrhage, mass, or mass effect.? Shaw-white matter interface appears preserved.? ? Skull and face:? Calvarium and visualized facial bones are intact, without suspicious lesions.? ? Sinuses:? Visualized sinuses and mastoids are clear.? ? IMPRESSION:? ? 1. No acute intracranial abnormality.? ? ? Dictated by: Maicol Burden M.D. on 07/26/2022 at 21:35 ? ? Approved by: Maicol Burden M.D. on 07/26/2022 at 21:37 ? MDM Narrative Medical decision making narrative: Appropriate for discharge home. Exam and laboratory studies and imaging are reassuring. Patient headache resolved after improvement of blood pressure. Return precautions reviewed with him. He does have dental resources to follow up for his dental pain. He has family doctor to follow up for blood pressure recheck. Patient desires discharge home Discharge Plan Departure Patient Disposition: Home Clinical Impression: Toothache, HTN (hypertension) Instructions: High Blood Pressure, DI for Dental Pain Activity Restrictions/Additional Instructions: Please see family doctor in a week for re-evaluation of your blood pressure. Prescription for blood pressure medication lisinopril 10 mg once a day has been sent to your [facility] pharmacy. Please see your dentist as we discussed for re-evaluation of your dental pain. Return if worse if any questions or concerns. No further antibiotics indicated at this time. Labs and exam reassuring Prescriptions: New lisinopril 10 mg tablet 10 mg PO DAILY Qty: 30 0RF No Action fluoxetine 60 mg tablet 60 mg PO DAILY Qty: 90 3RF amoxicillin-pot clavulanate 875-125 mg tablet 1 tab PO BID Qty: 20 0RF gabapentin 300 mg capsule 300 mg PO TID PRN (Reason: pain) Qty: 270 1RF lidocaine 5 % adhesive patch,medicated 1 patch TOP DAILY PRN (Reason: pain) Qty: 15 3RF Rx Instructions: leave on most painful area for up to 12 hrs Referrals: Johan Vallejo MD [Primary Care Provider] - Visit Report Forms: Patient Portal/API
[2022-07-26] MEDS: lisinopriL 10 MG TABLET PO (20:57)
== END 2022-07-26 22:40 | disposition home or self-care (01) ==
PROVIDERS: Emergency Medicine; Emergency Provider Emergency Medicine; Family Provider Family Medicine; PCP Family Medicine
DX: K08.89 Other specified disorders of teeth and supporting structures (principal); I10 Essential (primary) hypertension; R51.9 Headache, unspecified
CPT/HCPCS: 36415; 70450; 80053; 83605; 85025; 87040; 99284

== ENCOUNTER → 2023-01-07 10:24 | Outpatient (CLI) | payer OTHER, MEDICAID, SELFPAY ==
[2021-11-16 08:53] VITALS: BMI 39.4
--- NOTE | 2023-01-07 10:25 | DI.RAD.S_ITS ---
PROCEDURE: XR KNEE RT 3V INDICATIONS: right knee pain and leg pain TECHNIQUE: 3 views of the knee were acquired. COMPARISON: None. FINDINGS: Bones: No fractures or dislocations. No suspicious bony lesions. Mild tricompartmental arthritic narrowing without erosions. Soft tissues: Moderate joint effusion. No suspicious soft tissue calcifications. IMPRESSION: Moderate effusion. Mild arthritic changes. Dictated by: Geeta Montes M.D. on 01/07/2023 at 16:01 Approved by: Geeta Montes M.D. on 01/07/2023 at 16:02
== END ==
PROVIDERS: Family Provider Family Medicine; PCP Family Medicine; Referring Provider Family Medicine; Visit Provider Family Medicine
DX: M25.561 Pain in right knee (principal); M79.604 Pain in right leg; M25.461 Effusion, right knee
CPT/HCPCS: 73562

== ENCOUNTER → 2023-01-22 16:25 | Outpatient (CLI) | payer OTHER, SELFPAY ==
[2021-11-16 08:53] VITALS: BMI 39.4
--- NOTE | 2023-01-22 16:27 | DI.MRI.S_ITS ---
PROCEDURE: MR KNEE RT WO CON INDICATIONS: Crushing injury of right lower leg, subsequent enc TECHNIQUE: Noncontrast sagittal PD fast spin echo and T2 fast spin echo with fat saturation, sagittal 3-D FLASH with fat saturation; coronal T1 spin echo and PD fast spin echo with fat saturation, and axial PD fast spin echo with fat saturation through the knee. COMPARISON: [facility], MR, MR KNEE LT WO CON, 03/12/2022, 7:14. FINDINGS: Image quality: Excellent. Menisci: subtle signal abnormality involving posterior horn of medial meniscus extending to inferior articulating surface is seen . The lateral meniscus is intact. The meniscal root ligaments appear intact. Cruciate ligaments: The anterior and posterior cruciate ligaments appear intact. Medial structures: The medial collateral ligament appears mildly thickened. The posterior oblique ligament, semimembranosus tendon insertions, oblique popliteal ligament, and meniscocapsular junction appear intact. Visualized portions of the pes anserinus tendons appear normal. No abnormal bursal fluid. Lateral structures: The lateral collateral ligament, long and short heads of the biceps femoris tendon appear intact. The popliteus tendon appears normal; the popliteofibular ligament appears intact. Iliotibial band appears normal. Anterior structures: Distal quadriceps tendinosis at its superior patellar insertion is seen. Proximal patellar tendinosis is also seen. Nonspecific mild subcutaneous soft tissue edema along anterior aspect of patella and patella tendon. Patellar alignment is normal. No femoral trochlear dysplasia or ventral trochlear prominence. No edema in the infrapatellar fat pad. Bones and cartilage: There is no acute fracture or dislocation. Moderate grade chondromalacia patella involving lateral facet of patella cartilage is seen. Osteochondral injury involving adjacent posterior lateral portion of patella is also noted. Articulating cartilages in medial and lateral femoral tibial compartments are normal in thickness. Joint space: There is small knee joint fluid. No Coulter's cyst. Normal appearing synovial plicae are incidentally noted. IMPRESSION: 1. Mild osteoarthritis and low to moderate grade chondromalacia involving patellofemoral compartment with suggestion of osteochondral injury involving posterior lateral portion of patella as above. No acute fracture or dislocation. Small joint effusion, no gross loose bodies. 2. Suggestion of subtle oblique tear involving posterior horn of medial meniscus extending to inferior articulating surface. No focal lateral meniscal tear. 3. The cruciate ligaments are intact. 4. Low-grade MCL sprain. 5. Distal quadriceps tendinosis. Proximal patellar tendinosis. Mild soft tissue edema along anterior aspect of patella and patella tendon. Dictated by: Ermias Agarwal M.D. on 01/23/2023 at 9:15 Approved by: Ermias Agarwal M.D. on 01/23/2023 at 9:18
== END ==
PROVIDERS: Family Provider Family Medicine; PCP Family Medicine; Referring Provider Preventive Medicine Occupational Medicine; Visit Provider Preventive Medicine Occupational Medicine
DX: S87.81XD Crushing injury of right lower leg, subsequent encounter (principal); S83.411A Sprain of medial collateral ligament of right knee, initial encounter; M17.11 Unilateral primary osteoarthritis, right knee; M22.41 Chondromalacia patellae, right knee; M25.461 Effusion, right knee
CPT/HCPCS: 73721